=== PATIENT | male | born 1955 | race African-American/Black ===

== ENCOUNTER 2022-03-19 11:15 | Emergency (ER) | payer OTHER, SELFPAY ==
--- NOTE | ~2022-03-19 | XR_ITS ---
XR humerus RT 03/19/2022 11:44 Indication: Known dislocation Procedure: 2 views right humerus Comparison: No prior studies for comparison. Findings: There is anterior subluxation of the right humeral head with respect to the glenoid which m ay represent dislocation or pseudosubluxation. No fracture is identified. 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 Impression: 1: Inferior displacement of the humeral head to the expected location which may represent shoulder di slocation or pseudosubluxation. Correlation with dedicated right shoulder series recommended. Reviewed, dictated and finalized at location A. Impression: 1: Inferior displacement of the humeral head to the expected location which may represent shoulder dislocation or pseudosubluxation. Correlation with dedicate d right shoulder series recommended.
--- NOTE | ~2022-03-19 | XR_ITS ---
XR shoulder RT min 2V DATE: 03/19/2022 14:27 INDICATION: Postoperative reduction TECHNIQUE: AP and Neer views COMPARISON: 2 earlier sets of 03/19/2022 right shoulder radiographs FINDINGS: AP and Neer views reveal no fracture or dislocation of the right shoulder. There is inferolateral subluxation and osteophytic change at the right glenohumeral joint. Degenerative change at the right acromion clavicular joint. Prominent degenerative disc disease at C5-6 and C6-7. IMPRESSION: Inferolateral subluxation and osteoarthritic change at right glenohumeral joint Degenerative change at the acromioclavicular joint Reviewed, dictated and finalized at location B. IMPRESSION: Inferolateral subluxation and osteoarthritic change at right glenoh umeral joint Degenerative change at the acromioclavicular joint
--- NOTE | ~2022-03-19 | CT_ITS ---
EXAMINATION: CT shoulder RT wo con DATE: 03/19/2022 14:54 INDICATION: Right humeral head dislocation TECHNIQUE: Computed tomography (CT) of the right shoulder was performed without intravenous contrast. The dose-length product (DLP) was 628.18 mGy-cm. Automated exposure control and iterative reconstruc tion technique were employed. COMPARISON: None FINDINGS: Bone alignment appears normal. There is no dislocation or subluxation. A tiny osseous fragm ent projects along the inferior margin of the glenoid which could reflect a small fracture. There is mild osteoarthritis of the acromioclavicular and glenohumeral joints. The remaining osseous structure s are unremarkable. IMPRESSION: 1. Probable small fracture along the inferior margin of the glenoid. Reviewed, dictated and finalized at location F.
--- NOTE | ~2022-03-19 | XR_ITS ---
XR shoulder RT min 2V DATE: 03/19/2022 13:35 INDICATION: Postoperative reduction examination TECHNIQUE: 2 frontal views are provided. This is a limited radiographic evaluation. . COMPARISON: 03/19/2022 right humerus FINDINGS: This is a limited examination. There is degenerative change including joint space narrowing and spurring at the right acromioclavicular joint. There is widening at the right glenohumeral joint suggesting inferolateral subluxation at the glenohu meral joint. No fracture is noted. There is osteoarthritis at the glenohumeral joint. IMPRESSION: Anterolateral subluxation and osteoarthritis of the right glenohumeral joint Degenerative change at the acromioclavicular joint Reviewed, dictated and finalized at location B. IMPRESSION: Anterolateral subluxation and osteoarthritis of the right glenohume ral joint Degenerative change at the acromioclavicular joint
[2022-03-19 11:13] VITALS: BP 136/105; PULSE 99; RESP 23; TEMP 37.1; O2SAT 95
[2022-03-19] MEDS: LIDO 1%/EPINEPHRINE 1:100,000 20 ML VIAL (13:16)
[2022-03-19 13:27] VITALS: BP 136/89; PULSE 63; RESP 18; O2SAT 97
[2022-03-19 14:31] VITALS: BP 138/103; PULSE 94; RESP 21
--- NOTE | 2022-03-19 15:53 | ED.UPPEXIN ---
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 Patient was referred to the ER for further evaluation of right shoulder pain and concern for dislocation. Family reports he was in a nursing facility during transition his arm was pulled and he had pain on that right side. Chest x-ray was obtained for other reasons and there was concern for dislocation and plain films of the right shoulder were obtained and showed no dislocation but patient did not pain he was referred to the ER. Patient denies any new or focal change in numbness or weakness. His pain is primarily in his right shoulder no radiation worse with attempting to move his shoulder Related Data Home Medications Medication Instructions Recorded Confirmed tamsulosin 0.4 mg capsule 0.4 mg PO DAILY 05/02/20 12/04/21 acetaminophen 650 mg tablet 650 mg PO Q4H PRN Pain 03/19/22 Allergies Allergy/AdvReac Type Severity Reaction Status Date / Time clonidine Allergy Intermediate hives Verified 03/19/22 11:28 Review of Systems Review of Systems: CONSTITUTIONAL: Denies fever, chills, or sweats. EYES: Denies visual changes, redness, or discharge. ENT: Denies rhinorrhea, congestion, sore throat, or otalgia. CARDIOVASCULAR: Denies chest pain, palpitations, or edema. RESPIRATORY: Denies cough or dyspnea. GASTROINTESTINAL: Denies abdominal pain, nausea, vomiting, or diarrhea. GENITOURINARY: Denies dysuria or hematuria. SKIN: Denies rash or itching. MUSCULOSKELETAL: Denies back pain, joint pain, or myalgia. NEUROLOGIC: Denies headache, numbness, dizziness, or weakness. PSYCHIATRIC: Denies anxiety or depression. 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 BMI 37.0-37.9, adult Encounter for wellness examination in adult Essential (primary) hypertension Hypogonadism male Insomnia Iron deficiency anemia, unspecified Male erectile dysfunction, unspecified Mixed hyperlipidemia Prostate cancer Radiation effect Shift work sleep disorder Vitamin D deficiency, unspecified Family History Family History Mother Dementia Father Cerebrovascular accident Social History Social History Smoking status: Never smoker Alcohol intake: current Alcohol use details: Socially - twice weekly Substance use: never Exam Narrative: GENERAL: Well-appearing, well-nourished, and in no acute distress. HEAD: Normocephalic, atraumatic. EYES: PERRLA and EOMI. ENT: Nares clear, no rhinorrhea or epistaxis. Mucous membranes moist. NECK: Supple. No masses. No JVD EXTREMITIES: Normal range of motion. Diffuse tenderness on the right shoulder with displacement of the humeral head when compared to his left side. Distal Sally is at his baseline neurovascular status SKIN: Warm, dry, no rash. NEURO: No focal deficits. Alert and oriented x3. PSYCH: Normal mood and affect. Course Reevaluation(s) Reevaluation #1: Patient reports feeling improved results plan reviewed with patient. Patient is comfortable outpatient plan. Date: 03/19/22 Time: 15:54 Consultations Consultation #1: Case discussed with Dr. Fall will assist with outpatient evaluation given CT imaging findings. Date: 03/19/22 Time: 15:54 Vital Signs Vital signs: Vital Signs Temperature 37.1 C 03/19/22 11:13 Pulse Rate 99 03/19/22 11:13
[2022-03-19 16:07] VITALS: BP 156/111; PULSE 93; PULSE 95; RESP 17; O2SAT 94; O2SAT 95
== END 2022-03-19 17:34 ==
PROVIDERS: Emergency Provider Emergency Medicine; PCP Family Medicine
DX: S43.034A Inferior dislocation of right humerus, initial encounter (principal); G83.5 Locked-in state; I69.951 Hemiplegia and hemiparesis following unspecified cerebrovascular disease affecting right dominant side; I10 Essential (primary) hypertension; D50.9 Iron deficiency anemia, unspecified; E78.2 Mixed hyperlipidemia; Z85.46 Personal history of malignant neoplasm of prostate; E55.9 Vitamin D deficiency, unspecified; M19.011 Primary osteoarthritis, right shoulder; X50.9XXA Other and unspecified overexertion or strenuous movements or postures, initial encounter
CPT/HCPCS: 23650; 73030; 73060; 73200; 99284; 99285

== ENCOUNTER 2022-08-24 11:07 | Outpatient (CLI) | payer OTHER, MEDICARE, MEDICAID, SELFPAY ==
--- NOTE | ~2022-08-24 | XR_ITS ---
MODIFIED ESOPHAGRAM HISTORY: Dysphagia. TECHNIQUE: Modified barium esophagram was performed by speech pathologist under radiologist fluorosco pic guidance. This was recorded on tape. The exam was reviewed on 08/24/2022 12:16 FURNITURE FINISHER HELPER. The DAP for this procedure was 0.58 Gycm2. Fluoroscopy time is 0.6 minutes. FINDINGS: Lateral projection of the cervical spine demonstrates moderate spondylosis with ventral o steophytes at C4-5, C5-6 and C6-7.. During oral stage of swallowing there is reduced lingual movement . During pharyngeal stage there is reduced laryngeal elevation, reduced laryngeal adduction, reduced tongue base retraction and reduced pharyngeal squeeze. There is aspiration.. IMPRESSION: 1: Abnormal pharyngeal stage of swallowing with aspiration. 2: Please refer to speech pathologist report for additional detail. Reviewed, dictated and finalized at location A. ITURE FINISHER HELPER
--- NOTE | 2022-08-24 12:52 | REHSTMBS ---
Assessment and note entered by Mayra Dye, JIG MILL OPERATOR Modified Barium Swallow Evaluation Feeding Type Recommended Non-Oral Treatment Recommendations Effortful Swallow,Laryngeal Elevation Exerc,Shaker Exercise,Thermal-Tactile Stim,Tongue Base Exercise,Vocal Fold Adduction Exer ST Clinical Summary This 66 year old male patient was seen today for an outpatient MBS. His spouse brought him in and is able to provide his history since he is nonverbal. Spouse reported he had a stroke at the end of November and has been NPO since then. He is currently receiving services to help with is swallow function were he resides at [facility] . Spouse reported he has been very determined to improve swallow function, they have been trialing ice chips and completing exercises for swallowing. For the evaluation today, Héctor was presented with 5cc of thin liquid barium. This filled valleculae and spilled over to pyriform sinuses. Pt presented with 4-7 seconds delay before triggering a swallow. On the second trial a small amount went past the level of the vocal folds and about 1 second later, he coughed to attempt to clear. This was not successful. Physician and JIG MILL OPERATOR agreed to discontinue the swallow evaluation at this point due to patient safety. NPO continues to be appropriate.
== END 2022-08-24 11:08 | disposition home or self-care (01) ==
PROVIDERS: PCP Family Medicine; Visit Provider Internal Medicine
DX: I69.991 Dysphagia following unspecified cerebrovascular disease (principal)
CPT/HCPCS: 92611

== ENCOUNTER 2022-12-14 15:11 | Inpatient (IN) | payer MEDICARE, MEDICAID, SELFPAY ==
[2022-12-14] VITALS (9 sets, daily range): BP systolic 75–92; BP diastolic 54–68; PULSE 71–95; RESP 13–22; TEMP 36.5–36.8; O2SAT 95–100; BMI 29.3
--- NOTE | ~2022-12-14 | CT_ITS ---
EXAMINATION: CT brain wo con DATE: 12/14/2022 15:57 INDICATION: Syncope TECHNIQUE: Computed tomography (CT) of the head was performed without intravenous contrast. The mA wa s adjusted according to patient size. Iterative reconstruction technique was employed. Exam dose: 68 1.00 mGy-cm total exam DLP. COMPARISON: None FINDINGS: Old wedge-shaped posterior right cerebellar hemispheric infarct. There is nonspecific diminished attenuation of the cerebral white matter, likely due to chronic small vessel ischemic changes. No intracranial mass lesion or hemorrhage or recent cerebrovascular accident is evident. No midline s hift or mass effect effect. No subdural or epidural hematoma is detected. No fracture or bone destruction of the cranial vault. Included paranasal sinuses and mastoid air cell s are unremarkable. IMPRESSION: Old right cerebellar hemispheric infarct Cerebral atherosclerosis and chronic small vessel ischemic changes of the cerebral white matter No acute intracranial finding Reviewed, dictated and finalized at Location A. Reviewed, dictated and finalized at location B. IMPRESSION: Old right cerebellar hemispheric infarct Cerebral atherosclerosis and chronic small vessel ischemic changes of the cereb ral white matter No acute intracranial finding
--- NOTE | ~2022-12-14 | XR_ITS ---
EXAMINATION: XR chest 1V portable DATE: 12/14/2022 15:47 INDICATION: Unresponsive. TECHNIQUE: A single frontal view of the chest was obtained. COMPARISON: CT abdomen and pelvis 08/25/2018, right shoulder CT 03/19/2022 FINDINGS: There are airspace opacities in left lower lung zone. No pleural effusion or pneumothorax. The heart size is normal. Shrapnel overlies the neck, which is chronic. IMPRESSION: 1. Airspace opacities in left lower lung zone, consistent with atelectasis versus pneumonia. Reviewed, dictated and finalized at location A. IMPRESSION: 1. Airspace opacities in left lower lung zone, consistent with atelectasis vers us pneumonia.
--- NOTE | ~2022-12-14 | US_ITS ---
EXAMINATION: US carotid duplex BI DATE: 12/15/2022 16:25 INDICATION: Syncope TECHNIQUE: Grayscale, color Doppler, and pulsed Doppler images of the cervical carotid arteries were obtained. The degree of vessel stenosis is placed in one of the following categories: normal, <50%, 5 0-69%, >=70% but less than near-occlusion, near-occlusion, or total occlusion. Note that percent sten osis relative to normal distal artery lumen diameter is indirectly measured from velocity measurement s as described by Dong, et al. Radiology 2003; 229:340-346. Notes: Normal: Peak systolic velocity <125 centimeters/sec and no plaque <50%. Peak systolic velocity <125 ( EDV <40; ICA/CCA PSV ratio <2.0; used these factors only a tandem lesions or low cardiac output or co ntralateral disease) 50-69 %: PSV 125-230 (EDV 40-100; ratio 2-4) >= 70% but less than near occlusion: PSV greater than 230 (EDV > 100; ratio> 4.0) Near Occlusion: PSV that is variable; markedly narrowed lumen Occlusion: Absent flow on color/spectral Doppler and no lumen on ramirez scale. COMPARISON: None. FINDINGS: RIGHT: The right common carotid artery (CCA) peak systolic velocity (PSV) is 54 cm/s. The right internal car otid artery (ICA) PSV is 38 cm/s. The right ICA end-diastolic velocity (EDV) is 18 cm/s. The right IC A/CCA PSV ratio is 0.7. The external carotid artery (ECA) PSV is 59 cm/s. There is antegrade flow in the right vertebral artery. LEFT: The left CCA PSV is 66 cm/s. The left ICA PSV is 52 cm/s. The left ICA EDV is 27 cm/s. The left ICA/C CA PSV ratio is 0.8. The ECA PSV is 56 cm/s. There is antegrade flow in the left vertebral artery. IMPRESSION: 1. Less than 50% stenosis in the right internal carotid artery by sonographic criteria. 2. Less than 50% stenosis in the left internal carotid artery by sonographic criteria. Reviewed, dictated and finalized at location A. IMPRESSION: 1. Less than 50% stenosis in the right internal carotid artery by sonographic shai torres. 2. Less than 50% stenosis in the left internal carotid artery by sonographic aidee bae.
--- NOTE | ~2022-12-14 | US_ITS ---
EXAMINATION: US renal BI DATE: 12/15/2022 16:27 INDICATION: Acute kidney injury TECHNIQUE: Multiple grayscale and Doppler ultrasound images of the kidneys were obtained. COMPARISON: None. FINDINGS: The right kidney measures 11.1 x 4.9 x 4.9 cm. The left kidney measures 11.5 x 5.4 x 4.9 cm . The kidneys demonstrate normal parenchymal echogenicity. There is no hydronephrosis. The bladder is normal. IMPRESSION: 1. Normal kidneys without hydronephrosis. Reviewed, dictated and finalized at location F.
--- NOTE | 2022-12-14 15:17 | ECG_ITS ---
Rate 82 HI 186 QRSd 94 QT 341 QTc 400 --[place]-- P 16 QRS -3 T 26 SINUS RHYTHM DELAYED PRECORDIAL R/S TRANSITION LOW QRS VOLTAGE IN PRECORDIAL LEADS BORDERLINE ECG NO PREVIOUS ECG AVAILABLE FOR COMPARISON Electronically Signed On 12-14-2022 16:32:28 CDT by Sabino PEDRAZA
--- NOTE | 2022-12-14 15:33 | ED.GENADULT ---
HPI - General Adult General Chief complaint: Recheck/Abnormal Lab/Rx Stated complaint: unknown Time Seen by Provider: 12/14/22 15:32 Source: family and EMS Mode of arrival: EMS Limitations: clinical condition History of Present Illness HPI narrative: Patient is 67 years old -[place] male came from detention with sudden onset of staring, unresponsive while sitting on a chair with slight shaking all over lasted for about 5 minutes. Took him another 5 minutes to come around. History of 5 strokes, last year, admitted to detention February 2022, and feeding tube, paralyzed from neck down. Expressive aphasia, able to understand verbal commands. 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 BMI 37.0-37.9, adult Encounter for wellness examination in adult Essential (primary) hypertension Hypogonadism male Insomnia Iron deficiency anemia, unspecified Male erectile dysfunction, unspecified Mixed hyperlipidemia Prostate cancer Radiation effect Shift work sleep disorder Vitamin D deficiency, unspecified Family History Family History Mother Dementia Father Cerebrovascular accident Social History Social History Smoking status: Never smoker Alcohol intake: current Alcohol use details: Socially - twice weekly Substance use: never Exam Narrative: General appearance: Well-developed, well-nourished Skin: Normal color Head: Normocephalic, nontraumatic Eyes: Clear conjunctiva ENT: Oropharynx normal, ears normal, nose normal, no teeth Neck: Supple, nontender Chest and respiratory: Airway patent, no respiratory distress, no accessory muscle use Heart: Regular rate/rhythm Abdomen: Soft, nontender, no organomegaly, quiet bowel sounds, feeding tube in place Vascular: Normal peripheral pulses, normal capillary refill. Musculoskeletal: Hemiplegia bilaterally Neurologic: Expressive aphasia, hemiplegia bilaterally Course Vital Signs Vital signs: Vital Signs Temperature 36.8 C 12/14/22 15:13 Pulse Rate 83 12/14/22 15:13 Respiratory Rate 16 12/14/22 15:13 Blood Pressure 75/62 L 12/14/22 15:13 Pulse Oximetry 97 12/14/22 15:13 Oxygen Delivery Room Air 12/14/22 15:13 Temperature 36.8 C 12/14/22 15:13 Pulse Rate 83 12/14/22 15:13 Respiratory Rate 16 12/14/22 15:13 Blood Pressure 75/62 L 12/14/22 15:13 Pulse Oximetry 97 12/14/22 15:13 Oxygen Delivery Room Air 12/14/22 15:13 Medical Decision Making MDM Narrative Medical decision making narrative: Differential diagnosis sudden onset of blank and the staring with shaking could be secondary to seizure-like activities, hypotension,. Work-up today showed creatinine of 1.4 compared to 1.1 2018 Patient blood pressure improved after 2 L of normal saline IV. Patient will be admitted for observation discussed with the hospitalist. The seizu
[2022-12-14 15:36] LABS: Basophils Absolute Auto 0.1 K/mm3 (0.0-0.1); Basophils Percent Auto 1.2 % (0.2-1.2); Eosinophils Absolute Auto 0.2 K/mm3 (0-0.3); Hematocrit 35.6 % (42.0-52.0); Hemoglobin 11.3 g/dL (14.0-18.0); Immature Granulocyte Absolute 0.08 K/mm3 (0.00-0.031); Immature Granulocyte Percent A 1.1 % (0-0.5); Lymphocytes Absolute Auto 1.42 K/mm3 (0.9-3.2); Lymphocytes Percent Auto 18.7 % (18.3-44.2); Mean Corpuscular HGB Conc 31.7 g/dl (32-36); Mean Corpuscular Hemoglobin 28.9 pg (26-34); Mean Platelet Volume 10.9 fl (7.4-10.4); Monocytes Absolute Auto 1.4 K/mm3 (0.1-0.6); Monocytes Percent Auto 17.8 % (2.6-8.5); Neutrophils Absolute Auto 4.4 K/mm3 (1.3-6.7); Neutrophils Percent Auto 58.2 % (45.5-73.1); Platelet Count Result 249 k/mm3 (150-375); Red Blood Count 3.91 M/mm3 (4.6-6.20); Red Cell Distribution Width 14.2 % (11.5-14.5); White Blood Count 7.6 K/mm3 (4.5-10.0)
[2022-12-14 15:53] LABS: Alanine Aminotransferase 63 U/L (6-50); Albumin Level 4.3 g/dL (3.5-5.1); Alkaline Phosphatase 76 U/L (38-126); Anion Gap 7 mmol/L (8-16); Aspartate Amino Transferase 35 U/L (17-59); Bilirubin,Total 0.6 mg/dL (0.2-1.3); Blood Urea Nitrogen 30 mg/dL (9-20); Calcium 9.2 mg/dL (8.4-10.2); Carbon Dioxide 33 mmol/L (22-30); Chloride 95 mmol/L (98-107); Estimated CRCL calculation 48 ml/min; Estimated Glomerular Filt Rate > 60; Glucose 93 mg/dL (65-110); Potassium 4.6 mmol/L (3.4-5.0); Sodium 135 mmol/L (137-145)
[2022-12-14 16:02] LABS: Lactic Acid Reflex 1.6 mmol/L (0.7-2.0)
[2022-12-14 16:10] LABS: INR 1.1; Prothrombin Time 14.1 Seconds (11.1-14.7)
[2022-12-14 16:11] LABS: Partial Thromboplastin Time 31.4 SECONDS (22.3-36.8)
[2022-12-14 16:16] LABS: CRP < 0.5 mg/dL (<1.0)
[2022-12-14 17:26] LABS: Appearance Urine Clear (Clear); Bacteria Urine None Seen /hpf; Bilirubin Urine Negative (Negative); Blood Urine Negative (Negative); Color Urine Dark Yellow (Yellow); Glucose Urine UA Negative (Negative); Ketones Urine Trace mg/dL (Negative); Leukocyte Esterase Ur Trace LEU/UL (Negative); Need Manual Microscopic Reviewed; Nitrate Urine Negative (Negative); Protein Urine Trace mg/dL (Negative); RBC Urine 0-2 /hpf (0-2); Specific Grav Ur 1.019 (1.001-1.035); Squamous Epithelial Cell Urine None seen /hpf (Few); Urobilinogen Urine 0.2 mg/dL (<2.0); WBC Urine 0-5 /hpf; pH Urine 6.5 (5.0-9.0)
[2022-12-14 17:27] LABS: Add Urine Microscopic? YES
[2022-12-14 17:35] LABS: Alveolar/Arterial O2 Gradient 4.1 mmHg; Base Excess ABG 2.6 mEq/l (+/-2.0); Device ROOM AIR; Fractional Inspired Oxygen 21 %; Modified Allen's Test Pass; Oxygen Content ABG 14.4 %vol (16.0-22.0); Oxygen Saturation ABG 97.6 % (95.0-100.0); Oxyhemoglobin 96.4 % THb (90.0-100.0); PCO2 ABG 40.6 mmHg (35.0-45.0); PO2 FiO2 Ratio Arterial Blood 4.62 %; Site Drawn LEFT RADIAL; Total Hemoglobin 10.5 g/dL (12.0-18.0)
[2022-12-14] MEDS: SODIUM CHLORIDE 0.9% IV 1,000 ML 999 ML IV CONT (18:55)
--- NOTE | 2022-12-14 20:00 | PM.IMHP ---
H&P: HPI History of Present Illness Date/Time: 12/14/22 20:00 Chief Complaint: Unresponsive episode. Narrative: This is an unfortunate 67-year-old male with history of stroke which has left him with dysphagia, expressive aphasia, and bilateral weakness who presented to the emergency department via EMS from [facility] for evaluation after an unresponsive episode. The patient seems to understand what I am saying to him and can nod and shake his head appropriately. His Christelle provides the following history, with the patient's permission. He had his stroke last year and has been at [facility] since that time. He tries to participate in therapy and today he was reportedly having some sort of therapy when he suddenly started to stare off and he was then unresponsive for a minute or so. reports that he was shaking a little bit but did not think he was having seizures. On arrival to the ED is blood pressure was 75/62 and he was started on IV fluid rehydration. Labs were significant for a sodium of 135, potassium 4.6, carbon dioxide 33, BUN 30, creatinine 1.40. He has a G-tube in which he receives bolus feeding and free water flushes. does not believe he has had any change to that regimen and he has not been started on any new medications recently. He has no history of cardiac dysrhythmia or seizures. He denies chest pain, pleuritic pain, and shortness of breath at this time however he and his indicate that he does have chronic orthopnea, likely due to difficulties with his secretions. He has not had any recent fever, cold, or flu symptoms. Review of Systems Review of Systems: Limited given expressive aphasia. Twelve systems were reviewed with the and are negative except for as per HPI. 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 Vitamin D deficiency, unspecified Surgical History Surgical History (Updated 12/16/22 @ 14:10 by Noy Delaney PA-C) History of gastrostomy tube placement Family History Family History Mother Dementia Father Cerebrovascular accident Social History Social History (Updated 12/16/22 @ 14:13 by Noy Delaney PA-C) Social History: Surrogate medical decision maker: Christelle Jones, . Code status: Full code. Smoking status: Never smoker Alcohol intake: never Substance use: never Lack of Transportation: No Lack of Food: Never True Current Housing: I Have Housing Concerned About Future Housing: No Difficulty Paying Gas/Electric Bills: No Difficulty Paying for Meds: No Currently Unemployed: No Education: High School Diploma/GED Difficulty w/ Childcare or Family Care: No Spiritual care concerns: No Meds Home Medications and Allergies Home Medications Medication Instructions Recorded Confirmed Type amlodipine 10 mg tablet 10 mg PO DAILY #90 tabs 01/10/21 12/14/22 Rx irbesartan 150 mg tablet 150 mg PO DAILY #90 tabs 12/04/21 12/15/22 Rx aspirin 81 mg chewable tablet 81 mg PO DAILY 12/14/22 12/14/22 History atorvastatin 40 mg tablet 80 mg PO DAILY 12/14/22 12/14/22 History baclofen 10 mg tablet 10 mg PO BID PRN Spasms 12/14/22 12/14/22 History benazepril 20 mg tablet 20 mg PO DAILY 12/14/22 12/14/22 History cetirizine 10 mg tablet 10 mg PO DAILY 12/14/22 12/14/22 History clopidogrel 75 mg tablet 75 mg feeding tube DAILY 12/14/22 12/14/22 History diphenhydramine HCl 25 mg capsule 25 mg PO HS PRN Insomnia 12/14/22 12/14/22 History (Benadryl) enox
[2022-12-14] MEDS: SODIUM CHLORIDE 0.9% IV 1,000 ML 150 ML IV CONT (20:52)
--- NOTE | 2022-12-14 22:44 | ADMGEN ---
This patient, Héctor Jones, was admitted to IMU Room 200-01. Patient/family oriented to hospital policies and general routines including ID bracelet, bed and alarms, visiting hours, pain management, procedures, bathroom and other care routines, personal items, smoking policy, room service/diet, and visiting hours. Information on how to activate the Rapid Response Team has been discussed. Patient/Family are encouraged to report perceived risks to care and to ask questions if they do not understand what they are told or what they should do.
[2022-12-15] VITALS (13 sets, daily range): BP systolic 95–121; BP diastolic 59–82; PULSE 58–86; RESP 16–22; TEMP 36.2–37; O2SAT 98–100; BMI 29.3
--- NOTE | 2022-12-15 00:11 | ECHO_ITS ---
Patient Info Name: Héctor Jones Age: 67 years : 1955 Gender: Male Ht: 69 in Wt: 198 lbs BSA: 2.11 m2 HR: 58 bpm BP: 105 / 61 mmHg Technical Quality: Fair Exam Date: 12/15/2022 8:43 AM Exam Location: [facility] Patient Status: Inpatient Admit Date: 12/14/2022 Staff Ordering Physician: Noy Delaney PA-C Cloud Subject Matter Expert: Margarito Devries RDCS, RT Attending Provider: Dayana Bashir DO Referring Physician: Elaina MENDEZ; Exam Type: CA echo doppler color flow Study Info Indications R55 - Syncope and collapse Complete two-dimensional, color flow and Doppler transthoracic echocardiogram is performed. Summary 1. Complete two-dimensional, color flow and Doppler transthoracic echocardiogram is performed. 2. Left ventricular chamber dimension is normal. 3. Left ventricular systolic function is normal, estimated at 60-65%. 4. The left ventricular diastolic function is abnormal. 5. E/e' 11 is mildly elevated. 6. There is mild aortic valve sclerosis. 7. There is mild aortic valve regurgitation. 8. There is trace tricuspid valve regurgitation. Left Ventricle E/e' 11 is mildly elevated. Left ventricular chamber dimension is normal. Left ventricular systolic function is normal, estimated at 60-65%. The left ventricular diastolic function is abnormal. Right Ventricle Right ventricular systolic function is normal and with normal TAPSE 2.5 cm. Right ventricular chamber dimension is normal. Left Atria Left atrial chamber dimension is normal. Right Atria Right atrial chamber dimension is normal. Aortic Valve The aortic valve is trileaflet. There is mild aortic valve sclerosis. There is no aortic valve stenosis. There is mild aortic valve regurgitation. Pulmonic Valve There is no pulmonic regurgitation. Mitral Valve There is no mitral valve stenosis. There is no mitral valve regurgitation. Tricuspid Valve RVSP is not calculated due to an inadequate TR jet. There is trace tricuspid valve regurgitation. Pericardium/Pleural There is no pericardial effusion. Inferior Vena Cava Normal inferior vena cava with >50% collapse upon inspiration consistent with normal right atrial pressure, 5 mmHg. Aorta The aortic root size at the sinus of Valsalva is normal. Left Ventricular Outflow Tract Name Value Normal LVOT 2D LVOT Diameter 2.1 cm LVOT Doppler LVOT Peak Gradient 7 mmHg LVOT Mean Gradient 4 mmHg LVOT VTI 27 cm LVOT VTI/AV VTI Ratio 0.8 LVOT Stroke Volume 97 ml LVOT CO 5.9 l/min LVOT CI 2.8 l/min/m2 Mitral Valve Name Value Normal MV Doppler MV Peak Gradient 1 mmHg
[2022-12-15] MEDS: SODIUM CHLORIDE 0.9% IV 1,000 ML 150 ML IV CONT ×2 (02:11→14:11)
[2022-12-15 04:49] LABS: Hematocrit 34.3 % (42.0-52.0); Hemoglobin 10.6 g/dL (14.0-18.0); Mean Corpuscular HGB Conc 30.9 g/dl (32-36); Mean Corpuscular Hemoglobin 29.1 pg (26-34); Mean Corpuscular Volume 94.2 fl (80-100); Mean Platelet Volume 10.6 fl (7.4-10.4); Platelet Count Result 204 k/mm3 (150-375); Red Blood Count 3.64 M/mm3 (4.6-6.20); Red Cell Distribution Width 14.2 % (11.5-14.5); White Blood Count 5.8 K/mm3 (4.5-10.0)
[2022-12-15 04:59] LABS: Anion Gap 8 mmol/L (8-16); Blood Urea Nitrogen 20 mg/dL (9-20); Calcium 8.1 mg/dL (8.4-10.2); Carbon Dioxide 24 mmol/L (22-30); Chloride 104 mmol/L (98-107); Estimated CRCL calculation 78 ml/min; Estimated Glomerular Filt Rate > 60; Glucose 89 mg/dL (65-110); Potassium 4.4 mmol/L (3.4-5.0); Sodium 136 mmol/L (137-145)
[2022-12-15] MEDS: LANSOPRAZOLE ORAL SUSP 30 MG/10 ML ORAL.SUSP FEED TUBE (05:46)
--- NOTE | 2022-12-15 07:43 | PM.IMPN ---
Progress Note: A&P Assessment and Plan (1) Syncopal episodes: Code(s): R55 - Syncope and collapse Status: Acute Assessment and Plan: Likely 2/2 hypotension from pneumonia, it sounds as though the patient had a syncopal episode while working with therapy, according to the he had an episode where he began to stare and was unresponsive for about a minute. He did have mild tremors, but no gross seizure activity. Seizure is still a possibility, but seems less likely. He was hypotensive on arrival and likely this was the cause of the unresponsive episode. Monitor telemetry, check echo, carotid US, orthostatic VS (2) Hypotension: Code(s): I95.9 - Hypotension, unspecified Status: Acute Assessment and Plan: Dehydration vs medication side effect vs sepsis from PNA, cont IVF, hold antihypertensives Norvasc 10 mg, benazepril 20 mg, lasix 40 mg, irbesartan 150 mg, aldactone 25 mg Not sure why patient is on an CRISTI and an ARB, would not restart both at discharge (3) Acute on chronic kidney failure: Code(s): N17.9 - Acute kidney failure, unspecified; N18.9 - Chronic kidney disease, unspecified Status: Acute Assessment and Plan: Suspect prerenal etiology, follow up renal US, hold nephrotoxic agents, check PVR (4) Abnormal chest x-ray: Code(s): R93.89 - Abnormal findings on diagnostic imaging of other specified body structures Status: Acute Assessment and Plan: Rocephin + azithromycin started at admission 12/14 Elevate head of bed given aspiration risk. (5) Dysphagia: Code(s): R13.10 - Dysphagia, unspecified Status: Acute Assessment and Plan: Elevate head of bed. Continue G-tube feedings and free water flushes. Plan DVT prophylaxis with lovenox GI prophylaxis not indicated Code status full code Subjective Date/time seen: 12/15/22 07:43 Interval history: 67-year-old male with history of CVA and residual deficits of dysphagia, expressive aphasia, bilateral weakness and G-tube dependence for nutrition is presenting a nursing facility with an unresponsive episode concerning for seizure versus syncope found to be hypotensive in the ER possibly secondary to pneumonia, being treated with antibiotics. No overnight events noted. No chest pain or shortness of breath. No nausea, vomiting or diarrhea. No fevers or chills. is in the room and gives the history as patient is aphasic. She has noted a productive cough over the last few days. He was also progressively more dyspneic intermittently over the last few days. She has not noted any more spells like he had rehab. She would like his tube feeds to be restarted. Review of Systems Review of Systems: 12 point review of systems was assessed and was negative except as noted in the HPI, taken from the Exam Narrative: General: No acute distress, alert and oriented per baseline per , patient is aphasic at baseline, he does shake his head yes and no to certain questions HEENT: Atraumatic, normocephalic, mucous membranes moist CV: Regular rate and rhythm, S1, S2 Lungs: Coarse breath sounds throughout, no wheezes Abdomen: Soft, nontender, nondistended Extremities: Normal to inspection Skin: No rashes noted, no lesions or wounds seen Psych: Euthymic, normal affect Objective Data Vital Signs Vital Signs: Vital Signs - 24 hr 12/14/22 15:13 12/14/22 16:40 12/14/22 17:10 Temperature 98.2 F Pulse Rate 83 79 95 Respiratory Rate 16 18 20 Blood Pressure 75/62 L 82/56 L 90/68 L Pulse Oximetry 97 100 97 Oxygen Delivery Room Air 12/14/22 18:40 12/14/22 19:42 12/14/22 20:52 Temperature Pulse Rate 78 73 Respiratory Rate 16 18 Blood Pressure 84/54 L 80/55 L 92/66 L Pulse Oximetry 95 95 Oxygen Delivery 12/14/22 22:13 12/14/22 22:26 12/14/22 22:35 Temperature 97.7 F Pulse Rate 72 71 71 Respiratory Rate 19 13 22 H Blood Pr
[2022-12-15] MEDS: GABAPENTIN 100 MG CAPSULE FEED TUBE ×3 (09:07→18:02)
[2022-12-15] MEDS: FLUoxetine HCL 20 MG CAPSULE FEED TUBE (09:07)
[2022-12-15] MEDS: ASPIRIN 81 MG CHEWABLE TABLET FEED TUBE (09:07)
[2022-12-15] MEDS: GLYCOPYRROLATE 1 MG TABLET FEED TUBE ×3 (09:07→18:03)
[2022-12-15] MEDS: LACTULOSE 20 GM/30 ML UDC 10 GM FEED TUBE (09:08)
[2022-12-15] MEDS: CLOPIDOGREL BISULFATE 75 MG TABLET FEED TUBE (09:08)
[2022-12-15] MEDS: ENOXAPARIN 40 MG/0.4 ML SYRINGE SUB-Q (09:08)
[2022-12-15] MEDS: SUCRALFATE 1 GM TABLET FEED TUBE ×2 (09:09→18:03)
[2022-12-15] MEDS: LORATADINE 10 MG TABLET FEED TUBE (09:09)
--- NOTE | 2022-12-15 18:35 | PC.NURSE ---
At 1400 I was called into pts room by tech. Pt was transfering from commode to bed and became diaphoretic, very lethargic and very weak. Upon checking vitals it was found that she had a BP of 66/50 on R.arm, 133/[address] Bashir was called and came to bedside. 500ml bolus of NS was given. Pt was responsive to this as shown through q 5min vitals. Daughter was called and updated.
[2022-12-16] VITALS (13 sets, daily range): BP systolic 104–127; BP diastolic 68–92; PULSE 70–102; RESP 16–22; TEMP 36.2–37.2; O2SAT 95–100
[2022-12-16] MEDS: SODIUM CHLORIDE 0.9% IV 1,000 ML 150 ML IV CONT ×2 (01:32→17:13)
[2022-12-16 04:40] LABS: Estimated CRCL calculation 102 ml/min; Estimated Glomerular Filt Rate > 60
[2022-12-16] MEDS: CLOPIDOGREL BISULFATE 75 MG TABLET FEED TUBE (10:17)
[2022-12-16] MEDS: ASPIRIN 81 MG CHEWABLE TABLET FEED TUBE (10:17)
[2022-12-16] MEDS: ENOXAPARIN 40 MG/0.4 ML SYRINGE SUB-Q (10:18)
[2022-12-16] MEDS: FLUoxetine HCL 20 MG CAPSULE FEED TUBE (10:18)
[2022-12-16] MEDS: GLYCOPYRROLATE 1 MG TABLET FEED TUBE ×3 (10:18→17:10)
[2022-12-16] MEDS: SUCRALFATE 1 GM TABLET FEED TUBE ×2 (10:18→17:10)
[2022-12-16] MEDS: GABAPENTIN 100 MG CAPSULE FEED TUBE ×3 (10:18→17:10)
[2022-12-16] MEDS: LORATADINE 10 MG TABLET FEED TUBE (10:24)
[2022-12-16] MEDS: LANSOPRAZOLE ORAL SUSP 30 MG/10 ML ORAL.SUSP FEED TUBE (10:25)
--- NOTE | 2022-12-16 12:51 | PM.IMPN ---
Progress Note: A&P Assessment and Plan (1) Bacteremia: Code(s): R78.81 - Bacteremia Status: Acute Assessment and Plan: BCx on admission in all 4 bottles growing Gram-positive cocci in clusters. Probably related to pneumonia as a source. Echocardiogram is not show any obvious vegetations. Repeat blood cultures in the morning. Follow up on final results. (2) Pneumonia: Code(s): J18.9 - Pneumonia, unspecified organism Status: Acute Assessment and Plan: CXR showing LLL airspace disease. Rocephin + azithromycin started at admission 12/14. Vanco added today. Elevate head of bed given aspiration risk. Remains on room air. Follow up on culture results (3) Syncopal episodes: Code(s): R55 - Syncope and collapse Status: Acute Assessment and Plan: Patient had a syncopal episode while working with therapy. According to the he was staring and was unresponsive for about a minute. He did have mild tremors, but no gross seizure activity. Likely 2/2 hypotension from pneumonia. Seizure is still a possibility, but seems less likely. He was hypotensive on arrival and likely this was the cause of the unresponsive episode. Echo showing EF 60-65% with abnormal diastolic dysfunction. Carotid US <50% stenosis bilateral carotid arteries. 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 Contineu to follow. (4) Hypotension: Code(s): I95.9 - Hypotension, unspecified Status: Acute Assessment and Plan: Dehydration vs medication side effect vs sepsis from PNA. Suspect related to PNA. Antihypertensive meds on hold. Not sure why patient is on an CRISTI and an ARB but would not restart both at discharge. Begin to resume anti-HTN meds one at a time as toelrated. (5) Acute on chronic kidney failure: Code(s): N17.9 - Acute kidney failure, unspecified; N18.9 - Chronic kidney disease, unspecified Status: Acute Assessment and Plan: Cr 1.4 on admission. Suspect prerenal etiology. Renal US showing normal kidneys. Holding nephrotoxic agents. Repeat Cr normal now. Follow (6) Dysphagia: Code(s): R13.10 - Dysphagia, unspecified Status: Acute Assessment and Plan: Elevate head of bed. Continue G-tube feedings and free water flushes. Plan DVT prophylaxis with lovenox Code status full code Subjective Date/time seen: 12/16/22 12:51 Interval history: 67yo male with history of stroke which has left him with dysphagia, expressive aphasia, and bilateral weakness who presented to the emergency department via EMS from [facility] for evaluation after an unresponsive episode.? Assuming care. Chart reviewed. Patient is aphasic. He denies chest pain, SOB or nausea Exam Narrative: AF 98.6 118/81 71 16 100% ra Gen - NARD Chest - crackles bibasilar L>R CV - RRR S1/S2 Abd - Soft, NT, PEG site clean and dry Ext - trace pedal edema Neuro - alert, aphasic. Psych - labile mood Skin - Warm and dry Objective Data Vital Signs Vital Signs: Vital Signs - 24 hr 12/15/22 16:00 12/15/22 14:00 12/15/22 16:00 Temperature 98.6 F Pulse Rate 65 61 63 Respiratory Rate 20 Blood Pressure 109/82 Pulse Oximetry 100 Oxygen Delivery 12/15/22 16:00 12/15/22 18:00 12/15/22 20:00 Temperature Pulse Rate 64 Respiratory Rate Blood Pressure 115/78 Pulse Oximetry Oxygen Delivery Room Air 12/15/22 20:00 12/15/22 20:02 12/15/22 20:00 Temperature 97.2 F L Pulse Rate 66 70 Respiratory Rate 22 H Blood Pressure 115/78 121/81 Pulse Oximetry 98 Oxygen Delivery 12/15/22 20:00 12/16/22 00:00 12/16/22 00:00 Temperature 98.0 F Pulse Rate 79 Respiratory Rate 22 H Blood Pressure 104/69 Pulse Oximetry 98 Oxygen Delivery Room Air Room Air 12/15/22 22:00 12/16/22 00:00 12/16/22 02:00 Temperature Pulse Rate 86 77 72 Respiratory Rate Blood Pressure Pulse Oximetry
[2022-12-16] MEDS: AZITHROMYCIN 250 MG TABLET 500 MG PO (20:05)
[2022-12-16] MEDS: MELATONIN 3 MG TABLET FEED TUBE (20:06)
[2022-12-17] VITALS (13 sets, daily range): BP systolic 103–126; BP diastolic 75–85; PULSE 59–90; RESP 16–18; TEMP 36.1–37.1; O2SAT 98–100
[2022-12-17] MEDS: SODIUM CHLORIDE 0.9% IV 1,000 ML 150 ML IV CONT (03:30)
[2022-12-17] MEDS: LANSOPRAZOLE ORAL SUSP 30 MG/10 ML ORAL.SUSP FEED TUBE (06:14)
[2022-12-17] MEDS: SCOPOLAMINE 1.5 MG PATCH 1 MG TRANSDERM (07:03)
[2022-12-17] MEDS: FLUoxetine HCL 20 MG CAPSULE FEED TUBE (08:46)
[2022-12-17] MEDS: GLYCOPYRROLATE 1 MG TABLET FEED TUBE ×3 (08:46→16:17)
[2022-12-17] MEDS: ASPIRIN 81 MG CHEWABLE TABLET FEED TUBE (08:46)
[2022-12-17] MEDS: CLOPIDOGREL BISULFATE 75 MG TABLET FEED TUBE (08:46)
[2022-12-17] MEDS: ENOXAPARIN 40 MG/0.4 ML SYRINGE SUB-Q (08:46)
[2022-12-17] MEDS: GABAPENTIN 100 MG CAPSULE FEED TUBE ×3 (08:47→16:17)
[2022-12-17] MEDS: SUCRALFATE 1 GM TABLET FEED TUBE ×2 (08:47→16:17)
[2022-12-17] MEDS: LORATADINE 10 MG TABLET FEED TUBE (09:05)
[2022-12-17 10:16] LABS: Basophils Absolute Auto 0.1 K/mm3 (0.0-0.1); Basophils Percent Auto 0.9 % (0.2-1.2); Eosinophils Absolute Auto 0.4 K/mm3 (0-0.3); Eosinophils Percent Auto 4.7 % (0-4.4); Hematocrit 31.5 % (42.0-52.0); Immature Granulocyte Absolute 0.03 K/mm3 (0.00-0.031); Immature Granulocyte Percent A 0.4 % (0-0.5); Lymphocytes Absolute Auto 2.15 K/mm3 (0.9-3.2); Mean Corpuscular HGB Conc 31.7 g/dl (32-36); Mean Corpuscular Hemoglobin 28.6 pg (26-34); Mean Platelet Volume 10.8 fl (7.4-10.4); Monocytes Absolute Auto 0.5 K/mm3 (0.1-0.6); Monocytes Percent Auto 6.3 % (2.6-8.5); Neutrophils Absolute Auto 4.4 K/mm3 (1.3-6.7); Neutrophils Percent Auto 58.7 % (45.5-73.1); Platelet Count Result 237 k/mm3 (150-375); Red Cell Distribution Width 13.9 % (11.5-14.5); White Blood Count 7.4 K/mm3 (4.5-10.0)
[2022-12-17 10:27] LABS: Alanine Aminotransferase 38 U/L (6-50); Albumin Level 3.5 g/dL (3.5-5.1); Alkaline Phosphatase 70 U/L (38-126); Anion Gap 4 mmol/L (8-16); Aspartate Amino Transferase 26 U/L (17-59); Bilirubin,Total 0.4 mg/dL (0.2-1.3); Blood Urea Nitrogen 10 mg/dL (9-20); Calcium 8.3 mg/dL (8.4-10.2); Carbon Dioxide 30 mmol/L (22-30); Chloride 106 mmol/L (98-107); Estimated CRCL calculation 114 ml/min; Estimated Glomerular Filt Rate > 60; Glucose 87 mg/dL (65-110); Magnesium 1.7 mg/dL (1.6-2.3); Phosphorus 3.5 mg/dL (2.5-4.5); Potassium 3.8 mmol/L (3.4-5.0); Sodium 140 mmol/L (137-145)
[2022-12-17 11:06] LABS: Vancomycin Trough 18.2 ug/mL (10.0-20.0)
[2022-12-17] MEDS: SODIUM CHLORIDE 0.9% IV 1,000 ML 70 ML IV CONT ×2 (14:09→14:33)
--- NOTE | 2022-12-17 14:40 | PM.IMPN ---
Progress Note: A&P Assessment and Plan (1) Bacteremia: Code(s): R78.81 - Bacteremia Status: Acute Assessment and Plan: BCx on admission in 3/4 bottles growing Staph capitis. Sensitivities noted. More likely from skin source but possibly related to pneumonia as a source. Echocardiogram is not show any obvious vegetations. Repeat blood cultures today. Discussed with PharmD ID. Plan to continue Rocephin/Azithro/Vanco for now (increase Rocephin to 2gm) through 12/19/22 to cover for PNA (in case Staph capitis is not the etiology of the PNA). Then change to oxacillin to complete a 14 day total course for the bacteremia from negative culture. Place Midline if repeat BCx negative. (2) Pneumonia: Code(s): J18.9 - Pneumonia, unspecified organism Status: Acute Assessment and Plan: CXR showing LLL airspace disease. Rocephin + azithromycin started at admission 12/14. Vanco added 12/16. Elevate head of bed given aspiration risk. Remains on room air. As above (3) Syncopal episodes: Code(s): R55 - Syncope and collapse Status: Acute Assessment and Plan: Patient had a syncopal episode while working with therapy. According to the he was staring and was unresponsive for about a minute. He did have mild tremors, but no gross seizure activity. Likely 2/2 hypotension from pneumonia. Seizure is still a possibility, but seems less likely. He was hypotensive on arrival and likely this was the cause of the unresponsive episode. Echo showing EF 60-65% with abnormal diastolic dysfunction. Carotid US <50% stenosis bilateral carotid arteries. 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 BP better. Will stop IV fluids. Continue to follow. (4) Hypotension: Code(s): I95.9 - Hypotension, unspecified Status: Acute Assessment and Plan: Dehydration vs medication side effect vs sepsis from PNA. Suspect related to PNA. Antihypertensive meds on hold. Not sure why patient is on an CRISTI and an ARB but would not restart both at discharge. Will stop IV fluids. Begin to resume anti-HTN meds one at a time as BP requires. (5) Acute on chronic kidney failure: Code(s): N17.9 - Acute kidney failure, unspecified; N18.9 - Chronic kidney disease, unspecified Status: Acute Assessment and Plan: Cr 1.4 on admission. Suspect prerenal etiology. Renal US showing normal kidneys. Holding nephrotoxic agents. Repeat Cr normal now. Follow. Stop IV fluids (6) Dysphagia: Code(s): R13.10 - Dysphagia, unspecified Status: Acute Assessment and Plan: Elevate head of bed. Continue G-tube feedings and free water flushes. Plan DVT prophylaxis with lovenox Code status full code Subjective Date/time seen: 12/17/22 14:40 Interval history: 67yo male with history of stroke which has left him with dysphagia, expressive aphasia, and bilateral weakness who presented to the emergency department via EMS from [facility] for evaluation after an unresponsive episode.? Alert. Unable to provide hx. at bedside feels he is back to baseline. Exam Narrative: AF 98.8 112/76 65 16 100% ra Gen - NARD Chest - clear anteriorly and in the flanks to quiet respirations. nml RR CV - RRR S1/S2. Tele showing no significant dysrhythmias Abd - Soft, NT, PEG site clean and dry Ext - mild diffuse edema Neuro - alert, aphasic. Psych - nml mood Skin - Warm and dry Objective Data Vital Signs Vital Signs: Vital Signs - 24 hr 12/16/22 16:00 12/16/22 16:00 12/16/22 16:00 Temperature 98.6 F Pulse Rate 82 83 Respiratory Rate 16 Blood Pressure 127/92 H Pulse Oximetry 100 Oxygen Delivery Room Air 12/16/22 18:00 12/16/22 19:54 12/16/22 20:00 Temperature 98.4 F Pulse Rate 82 96 Respiratory Rate 20 Blood Pressure 119/87 Pulse Oximetry 97 Oxygen Delivery Room Air 12/16/22 20:00 12/17/22 00:00 12/16/22 22:00 Temperature P
[2022-12-17] MEDS: cefTRIAXone 2 GM/NS 100 ML 2 GM/100 ML BAG IVPB (15:59)
[2022-12-17] MEDS: AZITHROMYCIN 250 MG TABLET 500 MG PO (20:25)
[2022-12-17] MEDS: ACETAMINOPHEN ELIXIR 325 MG/10.15 ML UDC 650 MG FEED TUBE (21:19)
[2022-12-17] MEDS: MELATONIN 3 MG TABLET FEED TUBE (21:20)
[2022-12-18] VITALS (10 sets, daily range): BP systolic 106–130; BP diastolic 78–90; PULSE 62–95; RESP 16–20; TEMP 36.2–36.8; O2SAT 97–100
[2022-12-18 05:05] LABS: Estimated CRCL calculation 114 ml/min; Estimated Glomerular Filt Rate > 60
[2022-12-18] MEDS: LANSOPRAZOLE ORAL SUSP 30 MG/10 ML ORAL.SUSP FEED TUBE (05:11)
[2022-12-18] MEDS: CLOPIDOGREL BISULFATE 75 MG TABLET FEED TUBE (08:22)
[2022-12-18] MEDS: FLUoxetine HCL 20 MG CAPSULE FEED TUBE (08:22)
[2022-12-18] MEDS: ASPIRIN 81 MG CHEWABLE TABLET FEED TUBE (08:22)
[2022-12-18] MEDS: ENOXAPARIN 40 MG/0.4 ML SYRINGE SUB-Q (08:22)
[2022-12-18] MEDS: GABAPENTIN 100 MG CAPSULE FEED TUBE ×3 (08:23→16:37)
[2022-12-18] MEDS: GLYCOPYRROLATE 1 MG TABLET FEED TUBE ×3 (08:23→16:37)
[2022-12-18] MEDS: LACTULOSE 20 GM/30 ML UDC 10 GM FEED TUBE (08:24)
[2022-12-18] MEDS: SUCRALFATE 1 GM TABLET FEED TUBE ×2 (08:24→16:37)
[2022-12-18] MEDS: LORATADINE 10 MG TABLET FEED TUBE (08:25)
[2022-12-18] MEDS: PHENOL/SOD PHENO SPRAY CHERRY (*BKC) 1 SPRAY MUCOUS MEM ×2 (09:52→12:40)
--- NOTE | 2022-12-18 12:25 | PCNFU ---
Nutrition Follow-Up Complete: Swallowing difficulties related to dysphagia as evidenced by need for alternative nutrition support to meet nutritional needs Meet estimated needs Goal: Patient to tolerate current TF prescription on follow-up. Patient receiving Jevity 1.5 at 85mL/hr x 16 hrs (4 pm-8 am). Jevity 1.5 at 16 hours is providing 2040 kcal (meeting 102% of estimated energy needs), 87g protein (meeting 120% of estimated protein needs) and 1034 mL of free water. Nutrition recommendation: Continue with current TF prescription of Jevity 1.5 at 85mL/hr x 16 hours. Will monitor for GI intolerance. Recommend free water flush of 120mL every 3 hours. Recommend to elevate HOB during TF infusion. Last recorded weight is 92.5 kg. Bowel Motility: BM x 3 on 12/16/22. Bowel sounds present. Abd: distended, firm, tender. Labs Reviewed: Hgb: 10, Hct: 31.5 Vitals: MAP: 93 Meds Noted: Lactulose, Carafate, Lansoprazole Skin: No open areas documented per EHR Additional Notes: Weight up 6 lbs (3%) x 4 days. Patient not receiving a diuretic as he had been at home. Monitor tube feedings, tolerance, wt, labs. Follow up every Wednesday and Wednesday.
--- NOTE | 2022-12-18 13:56 | PM.IMPN ---
Progress Note: A&P Assessment and Plan (1) Bacteremia: Code(s): R78.81 - Bacteremia Status: Acute Assessment and Plan: BCx on admission in 3/4 bottles growing Staph capitis. Sensitivities noted. More likely from skin source but possibly related to pneumonia as a source. Echocardiogram is not show any obvious vegetations. Repeat blood cultures NGTD. Continue Rocephin/Azithro/Vanco through 12/19/22 to cover for PNA (in case Staph capitis is not the etiology of the PNA). Then change to oxacillin to complete a 14 day total course for the bacteremia from negative culture. Place Midline if repeat BCx negative. Consider SUNNI if repeat BCx positive. (2) Pneumonia: Code(s): J18.9 - Pneumonia, unspecified organism Status: Acute Assessment and Plan: CXR showing LLL airspace disease. Rocephin + azithromycin started at admission 12/14. Vanco added 12/16. Elevate head of bed given aspiration risk. Remains on room air. As above (3) Syncopal episodes: Code(s): R55 - Syncope and collapse Status: Acute Assessment and Plan: Patient had a syncopal episode while working with therapy. According to the he was staring and was unresponsive for about a minute. He did have mild tremors, but no gross seizure activity. Likely 2/2 hypotension from pneumonia. Seizure is still a possibility, but seems less likely. He was hypotensive on arrival and likely this was the cause of the unresponsive episode. Echo showing EF 60-65% with abnormal diastolic dysfunction. Carotid US <50% stenosis bilateral carotid arteries. 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 BP better so IV fluids stopped. BP normal but not elevated to require resuming anti-HTN meds. Continue to follow. (4) Hypotension: Code(s): I95.9 - Hypotension, unspecified Status: Acute Assessment and Plan: Dehydration vs medication side effect vs sepsis from PNA. Suspect related to PNA. Antihypertensive meds on hold. Not sure why patient is on an CRISTI and an ARB but would not restart both at discharge. BP stable. Begin to resume anti-HTN meds one at a time as BP requires. (5) Acute on chronic kidney failure: Code(s): N17.9 - Acute kidney failure, unspecified; N18.9 - Chronic kidney disease, unspecified Status: Acute Assessment and Plan: Cr 1.4 on admission. Suspect prerenal etiology. Renal US showing normal kidneys. Holding nephrotoxic agents. Repeat Cr normal now. Follow. (6) Dysphagia: Code(s): R13.10 - Dysphagia, unspecified Status: Acute Assessment and Plan: Elevate head of bed. Continue G-tube feedings and free water flushes. Plan DVT prophylaxis with lovenox Code status full code Subjective Date/time seen: 12/18/22 13:56 Interval history: 67yo male with history of stroke which has left him with dysphagia, expressive aphasia, and bilateral weakness who presented to the emergency department via EMS from [facility] for evaluation after an unresponsive episode.? No CP. No abd pain. No SOB. Patietn is alert but essentially nonverbal and does shake his head for Yes/No Exam Narrative: AF 997.5 123/79 65 16 100% ra Gen - NARD lying semi-recumbent in bed Chest - lungs clear anteriorly and in the flanks, nml RR CV - RRR S1/S2. Tele showing no significant dysrhythmias Abd - Soft, NT, PEG site clean and dry Ext - trace diffuse edema Neuro - alert, aphasic. Psych - nml mood Skin - Warm and dry Objective Data Vital Signs Vital Signs: Vital Signs - 24 hr 12/17/22 14:00 12/17/22 16:00 12/17/22 16:00 Temperature Pulse Rate 65 62 Respiratory Rate Blood Pressure Pulse Oximetry Oxygen Delivery Room Air 12/17/22 16:00 12/17/22 18:00 12/17/22 20:00 Temperature 98.8 F 98.6 F Pulse Rate 68 79 87 Respiratory Rate 16 16 Blood Pressure 112/76 103/75 Pulse Oximetry 100 98 Oxygen Delivery 12/17/22 20:00
[2022-12-18] MEDS: cefTRIAXone 2 GM/NS 100 ML 2 GM/100 ML BAG IVPB (16:37)
[2022-12-18] MEDS: AZITHROMYCIN 250 MG TABLET 500 MG PO (20:29)
[2022-12-19] VITALS: BP 114/94; PULSE 70; RESP 20; TEMP 36.4; O2SAT 100
[2022-12-19] MEDS: LANSOPRAZOLE ORAL SUSP 30 MG/10 ML ORAL.SUSP FEED TUBE (06:36)
[2022-12-19 07:08] LABS: Hematocrit 30.3 % (42.0-52.0); Hemoglobin 10.1 g/dL (14.0-18.0); Mean Corpuscular HGB Conc 33.3 g/dl (32-36); Mean Corpuscular Hemoglobin 28.7 pg (26-34); Mean Corpuscular Volume 86.1 fl (80-100); Mean Platelet Volume 10.7 fl (7.4-10.4); Platelet Count Result 254 k/mm3 (150-375); Red Blood Count 3.52 M/mm3 (4.6-6.20); Red Cell Distribution Width 13.9 % (11.5-14.5); White Blood Count 8.6 K/mm3 (4.5-10.0)
[2022-12-19 07:21] LABS: Anion Gap 6 mmol/L (8-16); Blood Urea Nitrogen 10 mg/dL (9-20); Calcium 8.5 mg/dL (8.4-10.2); Carbon Dioxide 27 mmol/L (22-30); Chloride 107 mmol/L (98-107); Estimated CRCL calculation 114 ml/min; Estimated Glomerular Filt Rate > 60; Glucose 122 mg/dL (65-110); Potassium 4.7 mmol/L (3.4-5.0); Sodium 140 mmol/L (137-145)
[2022-12-19] MEDS: CLOPIDOGREL BISULFATE 75 MG TABLET FEED TUBE (10:25)
[2022-12-19] MEDS: FLUoxetine HCL 20 MG CAPSULE FEED TUBE (10:25)
[2022-12-19] MEDS: ENOXAPARIN 40 MG/0.4 ML SYRINGE SUB-Q (10:25)
[2022-12-19] MEDS: LACTULOSE 20 GM/30 ML UDC 10 GM FEED TUBE (10:26)
[2022-12-19] MEDS: GABAPENTIN 100 MG CAPSULE FEED TUBE ×3 (10:26→17:45)
[2022-12-19] MEDS: GLYCOPYRROLATE 1 MG TABLET FEED TUBE ×3 (10:26→17:45)
[2022-12-19] MEDS: ASPIRIN 81 MG CHEWABLE TABLET FEED TUBE (10:26)
[2022-12-19] MEDS: LORATADINE 10 MG TABLET FEED TUBE (10:27)
[2022-12-19] MEDS: SUCRALFATE 1 GM TABLET FEED TUBE ×2 (10:27→17:45)
[2022-12-19] MEDS: ATORVASTATIN 40 MG TABLET 80 MG PO (10:27)
[2022-12-19] MEDS: ACETAMINOPHEN ELIXIR 325 MG/10.15 ML UDC 650 MG FEED TUBE (10:30)
--- NOTE | 2022-12-19 10:46 | PC.NURSE ---
This patient, Héctor Jones, was transferred to [facility] on 12/18/22. Personal belongings sent with patient. Report given to LANIE George. Appropriate documentation sent with patient.
[2022-12-19] MEDS: PHENOL/SOD PHENO SPRAY CHERRY (*BKC) 1 SPRAY MUCOUS MEM (12:26)
[2022-12-19 14:39] VITALS: BP 96/83; PULSE 63; RESP 18; TEMP 36.2; O2SAT 100
[2022-12-19] MEDS: SODIUM CHLORIDE 0.9% IV 500 ML IV CONT (15:56)
[2022-12-19 17:17] VITALS: BP 119/81; PULSE 82; RESP 16
--- NOTE | 2022-12-19 19:24 | PM.IMPN ---
Progress Note: A&P Assessment and Plan (1) Bacteremia: Code(s): R78.81 - Bacteremia Status: Acute Assessment and Plan: BCx on admission in 3/4 bottles growing Staph capitis. Sensitivities noted. More likely from skin source but possibly related to pneumonia as a source. Echocardiogram is not show any obvious vegetations. Repeat blood cultures NGTD. Continue Rocephin/Azithro/Vanco through 12/19/22 to cover for PNA (in case Staph capitis is not the etiology of the PNA). Then change to oxacillin to complete a 14 day total course for the bacteremia from negative culture. Place Midline if repeat BCx negative. Consider SUNNI if repeat BCx positive. (2) Pneumonia: Code(s): J18.9 - Pneumonia, unspecified organism Status: Acute Assessment and Plan: CXR showing LLL airspace disease. Rocephin + azithromycin started at admission 12/14. Vanco added 12/16. Elevate head of bed given aspiration risk. Remains on room air. As above (3) Syncopal episodes: Code(s): R55 - Syncope and collapse Status: Acute Assessment and Plan: Patient had a syncopal episode while working with therapy. According to the he was staring and was unresponsive for about a minute. He did have mild tremors, but no gross seizure activity. Likely 2/2 hypotension from pneumonia. Seizure is still a possibility, but seems less likely. He was hypotensive on arrival and likely this was the cause of the unresponsive episode. Echo showing EF 60-65% with abnormal diastolic dysfunction. Carotid US <50% stenosis bilateral carotid arteries. 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 BP better so IV fluids stopped. BP normal but not elevated to require resuming anti-HTN meds. Continue to follow. (4) Hypotension: Code(s): I95.9 - Hypotension, unspecified Status: Acute Assessment and Plan: Dehydration vs medication side effect vs sepsis from PNA. Suspect related to PNA. Antihypertensive meds on hold. Not sure why patient is on an CRISTI and an ARB but would not restart both at discharge. BP stable. Begin to resume anti-HTN meds one at a time as BP requires. (5) Acute on chronic kidney failure: Code(s): N17.9 - Acute kidney failure, unspecified; N18.9 - Chronic kidney disease, unspecified Status: Acute Assessment and Plan: Cr 1.4 on admission. Suspect prerenal etiology. Renal US showing normal kidneys. Holding nephrotoxic agents. Repeat Cr normal now. Follow. (6) Dysphagia: Code(s): R13.10 - Dysphagia, unspecified Status: Acute Assessment and Plan: E levate head of bed. Continue G-tube feedings and free water flushes. Plan DVT prophylaxis with lovenox Code status full code Subjective Date/time seen: 12/19/22 19:24 Interval history: 67yo male with history of stroke which has left him with dysphagia, expressive aphasia, and bilateral weakness who presented to the emergency department via EMS from [facility] for evaluation after an unresponsive episode.? No overnight events noted. No chest pain or shortness of breath. No nausea, vomiting or diarrhea. No fevers or chills. Patient shakes his head yes or no, is nonverbal at baseline. Discussed case with was at bedside. Review of Systems Review of Systems: 12 point review of systems was assessed and was negative except as noted in the HPI Exam Narrative: General: No acute distress, alert and oriented per baseline, aphasic and nonverbal at baseline HEENT: Atraumatic, normocephalic, mucous membranes moist CV: Regular rate and rhythm, S1, S2 Lungs: Clear to auscultation bilaterally, no rales or crackles noted, no wheezes, good air entry Abdomen: Soft, nontender, nondistended Extremities: Normal to inspection Skin: No rashes noted, no lesions or wounds seen Psych: Euthymic, normal affect Objective Data Vital Signs Vital Signs: Vital Signs - 24 hr 0
[2022-12-19 20:00] VITALS: PULSE 104; RESP 20; O2SAT 100
[2022-12-19 21:18] VITALS: BP 147/85; PULSE 104; RESP 20; TEMP 36.7; O2SAT 100
[2022-12-20 06:00] VITALS: BP 137/96; PULSE 92; RESP 24; TEMP 36.6; O2SAT 100
[2022-12-20] MEDS: GABAPENTIN 100 MG CAPSULE FEED TUBE ×3 (08:15→16:12)
[2022-12-20] MEDS: GLYCOPYRROLATE 1 MG TABLET FEED TUBE ×3 (08:15→16:12)
[2022-12-20] MEDS: LORATADINE 10 MG TABLET FEED TUBE (08:15)
[2022-12-20] MEDS: ASPIRIN 81 MG CHEWABLE TABLET FEED TUBE (08:15)
[2022-12-20] MEDS: LACTULOSE 20 GM/30 ML UDC 10 GM FEED TUBE (08:15)
[2022-12-20] MEDS: ATORVASTATIN 40 MG TABLET 80 MG PO (08:15)
[2022-12-20] MEDS: SUCRALFATE 1 GM TABLET FEED TUBE ×2 (08:15→16:12)
[2022-12-20] MEDS: CLOPIDOGREL BISULFATE 75 MG TABLET FEED TUBE (08:15)
[2022-12-20] MEDS: FLUoxetine HCL 20 MG CAPSULE FEED TUBE (08:16)
[2022-12-20] MEDS: OXACILLIN SODIUM 2 GM in SODIUM CHLORIDE 0.9% IV 100 ML IVPB ×4 (08:16→21:56)
[2022-12-20] MEDS: ENOXAPARIN 40 MG/0.4 ML SYRINGE SUB-Q (08:16)
[2022-12-20] MEDS: SCOPOLAMINE 1.5 MG PATCH 1 MG TRANSDERM (08:16)
--- NOTE | 2022-12-20 09:16 | PM.DS ---
DS: Admitting Diagnosis Discharge Date 12/20/22 Admitting Diagnosis unresponsive episode DS: Discharge Diagnosis Discharge Diagnosis (1) Bacteremia: Code(s): R78.81 - Bacteremia Status: Acute Assessment and Plan: BCx on admission in 3/4 bottles growing Staph capitis. Sensitivities noted. More likely from skin source but possibly related to pneumonia as a source. Echocardiogram is not show any obvious vegetations. Repeat blood cultures NGTD. Continue Rocephin/Azithro/Vanco through 12/19/22 to cover for PNA (in case Staph capitis is not the etiology of the PNA). Then change to oxacillin to complete a 14 day total course for the bacteremia from negative culture. Place Midline if repeat BCx negative. Consider SUNNI if repeat BCx positive. (2) Pneumonia: Code(s): J18.9 - Pneumonia, unspecified organism Status: Acute Assessment and Plan: CXR showing LLL airspace disease. Rocephin + azithromycin started at admission 12/14. Vanco added 12/16. Elevate head of bed given aspiration risk. Remains on room air. As above (3) Syncopal episodes: Code(s): R55 - Syncope and collapse Status: Acute Assessment and Plan: Patient had a syncopal episode while working with therapy. According to the he was staring and was unresponsive for about a minute. He did have mild tremors, but no gross seizure activity. Likely 2/2 hypotension from pneumonia. Seizure is still a possibility, but seems less likely. He was hypotensive on arrival and likely this was the cause of the unresponsive episode. Echo showing EF 60-65% with abnormal diastolic dysfunction. Carotid US <50% stenosis bilateral carotid arteries. 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 BP better so IV fluids stopped. BP normal but not elevated to require resuming anti-HTN meds. Continue to follow. (4) Hypotension: Code(s): I95.9 - Hypotension, unspecified Status: Acute Assessment and Plan: Dehydration vs medication side effect vs sepsis from PNA. Suspect related to PNA. Antihypertensive meds on hold. Not sure why patient is on an CRISTI and an ARB but would not restart both at discharge. BP stable. Begin to resume anti-HTN meds one at a time as BP requires. (5) Acute on chronic kidney failure: Code(s): N17.9 - Acute kidney failure, unspecified; N18.9 - Chronic kidney disease, unspecified Status: Acute Assessment and Plan: Cr 1.4 on admission. Suspect prerenal etiology. Renal US showing normal kidneys. Holding nephrotoxic agents. Repeat Cr normal now. Follow. (6) Dysphagia: Code(s): R13.10 - Dysphagia, unspecified Status: Acute Assessment and Plan: E levate head of bed. Continue G-tube feedings and free water flushes. Plan DVT prophylaxis with lovenox Code status full code DS: Summary Hospital Course Hospital Course: 67-year-old male with history of CVA and residual deficits of dysphagia, expressive aphasia, bilateral weakness and G-tube dependence for nutrition is presenting a nursing facility with an unresponsive episode concerning for seizure versus syncope found to be hypotensive in the ER possibly secondary to pneumonia, being treated with antibiotics. BCx on admission in 3/4 bottles growing Staph capitis. Sensitivities noted. More likely from skin source but possibly related to pneumonia as a source.? Echocardiogram is not show any obvious vegetations.? Repeat blood cultures NGTD. Continue Rocephin/Azithro/Vanco through 12/19/22 to cover for PNA (in case Staph capitis is not the etiology of the PNA). Then change to oxacillin to complete a 14 day total course for the bacteremia from negative culture. Midline placed, repeat bld cx negative. Please see above and med rec for details. Time Spent with Patient Time attestation: Total time spent providing and/or coordinating discharge services: Exam Narrative: General: No acute di
[2022-12-20] MEDS: FUROSEMIDE 40 MG TABLET PO (09:56)
[2022-12-20] MEDS: lisinopriL 20 MG TABLET PO (09:56)
[2022-12-20] MEDS: SPIRONOLACTONE 25 MG TABLET PO (09:57)
[2022-12-20] MEDS: amLODIPine BESYLATE 5 MG TABLET 10 MG PO (09:57)
[2022-12-20 14:08] VITALS: BP 100/78; PULSE 69; RESP 20; TEMP 36.2; O2SAT 100
[2022-12-20] MEDS: SALINE LOCK FLUSH 10 ML IV PUSH ×2 (14:39→21:57)
--- NOTE | 2022-12-20 18:20 | PM.IMPN ---
Progress Note: A&P Assessment and Plan (1) Bacteremia: Code(s): R78.81 - Bacteremia Status: Acute Assessment and Plan: BCx on admission in 3/4 bottles growing Staph capitis. Sensitivities noted. More likely from skin source but possibly related to pneumonia as a source. Echocardiogram is not show any obvious vegetations. Repeat blood cultures NGTD. Continue Rocephin/Azithro/Vanco through 12/19/22 to cover for PNA (in case Staph capitis is not the etiology of the PNA). Then change to oxacillin to complete a 14 day total course for the bacteremia from negative culture. Midline placed today, discharge tomorrow with oxacillin at the SNF (2) Pneumonia: Code(s): J18.9 - Pneumonia, unspecified organism Status: Acute Assessment and Plan: CXR showing LLL airspace disease. Rocephin + azithromycin started at admission 12/14. Vanco added 12/16. Elevate head of bed given aspiration risk. Remains on room air. As above (3) Syncopal episodes: Code(s): R55 - Syncope and collapse Status: Acute Assessment and Plan: Patient had a syncopal episode while working with therapy. According to the he was staring and was unresponsive for about a minute. He did have mild tremors, but no gross seizure activity. Likely 2/2 hypotension from pneumonia. Seizure is still a possibility, but seems less likely. He was hypotensive on arrival and likely this was the cause of the unresponsive episode. Echo showing EF 60-65% with abnormal diastolic dysfunction. Carotid US <50% stenosis bilateral carotid arteries. 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 BP better so IV fluids stopped. BP normal but not elevated to require resuming anti-HTN meds. Continue to follow. (4) Hypotension: Code(s): I95.9 - Hypotension, unspecified Status: Acute Assessment and Plan: Dehydration vs medication side effect vs sepsis from PNA. Suspect related to PNA. Antihypertensive meds on hold. Not sure why patient is on an CRISTI and an ARB but would not restart both at discharge. BP stable. Begin to resume anti-HTN meds one at a time as BP requires. (5) Acute on chronic kidney failure: Code(s): N17.9 - Acute kidney failure, unspecified; N18.9 - Chronic kidney disease, unspecified Status: Acute Assessment and Plan: Cr 1.4 on admission. Suspect prerenal etiology. Renal US showing normal kidneys. Holding nephrotoxic agents. Repeat Cr normal now. Follow. (6) Dysphagia: Code(s): R13.10 - Dysphagia, unspecified Status: Acute Assessment and Plan: Elevate head of bed. Continue G-tube feedings and free water flushes. Plan DVT prophylaxis with lovenox Code status full code Subjective Date/time seen: 12/20/22 18:20 Interval history: 67yo male with history of stroke which has left him with dysphagia, expressive aphasia, and bilateral weakness who presented to the emergency department via EMS from [facility] for evaluation after an unresponsive episode.? No overnight events noted. No pain or shortness of breath. No vomiting or diarrhea. No fevers or chills. Review of Systems Review of Systems: ROS unobtainable: Yes unobtainable due to mental status Exam Narrative: General: No acute distress, alert and oriented per baseline, aphasic and nonverbal at baseline HEENT: Atraumatic, normocephalic, mucous membranes moist CV: Regular rate and rhythm, S1, S2 Lungs: Clear to auscultation bilaterally, no rales or crackles noted, no wheezes, good air entry Abdomen: Soft, nontender, nondistended Extremities: Normal to inspection Skin: No rashes noted, no lesions or wounds seen Psych: Euthymic, normal affect Objective Data Vital Signs Vital Signs: Vital Signs - 24 hr 12/19/22 21:18 12/19/22 20:00 12/20/22 06:00 Temperature 98.1 F 98 F Pulse Rate 104 H 104 H 92 Respiratory Rate 20 20 24 H Blood Pressure 147/85 H
[2022-12-20 20:00] VITALS: PULSE 104; RESP 24; O2SAT 98
[2022-12-20 20:29] VITALS: BP 130/88; PULSE 104; RESP 24; TEMP 36.8; O2SAT 98
[2022-12-21] MEDS: OXACILLIN SODIUM 2 GM in SODIUM CHLORIDE 0.9% IV 100 ML IVPB ×5 (01:00→16:51)
[2022-12-21] MEDS: SALINE LOCK FLUSH 10 ML IV PUSH ×2 (05:42→13:35)
[2022-12-21] MEDS: LANSOPRAZOLE ORAL SUSP 30 MG/10 ML ORAL.SUSP FEED TUBE (05:43)
[2022-12-21 06:37] VITALS: BP 117/78; PULSE 92; RESP 18; TEMP 36.8; O2SAT 97
[2022-12-21 08:00] VITALS: BP 102/69; PULSE 71; RESP 18; TEMP 36.4; O2SAT 99
[2022-12-21] MEDS: ATORVASTATIN 40 MG TABLET 80 MG PO (08:37)
[2022-12-21] MEDS: GABAPENTIN 100 MG CAPSULE FEED TUBE ×3 (08:37→16:51)
[2022-12-21] MEDS: SPIRONOLACTONE 25 MG TABLET PO (08:37)
[2022-12-21] MEDS: amLODIPine BESYLATE 5 MG TABLET 10 MG PO (08:37)
[2022-12-21] MEDS: FLUoxetine HCL 20 MG CAPSULE FEED TUBE (08:37)
[2022-12-21] MEDS: LORATADINE 10 MG TABLET FEED TUBE (08:37)
[2022-12-21] MEDS: SUCRALFATE 1 GM TABLET FEED TUBE ×2 (08:37→16:51)
[2022-12-21] MEDS: CLOPIDOGREL BISULFATE 75 MG TABLET FEED TUBE (08:37)
[2022-12-21] MEDS: GLYCOPYRROLATE 1 MG TABLET FEED TUBE ×3 (08:37→16:51)
[2022-12-21] MEDS: FUROSEMIDE 40 MG TABLET PO (08:37)
[2022-12-21] MEDS: ASPIRIN 81 MG CHEWABLE TABLET FEED TUBE (08:37)
[2022-12-21] MEDS: ENOXAPARIN 40 MG/0.4 ML SYRINGE SUB-Q (08:38)
[2022-12-21] MEDS: lisinopriL 20 MG TABLET PO (08:38)
[2022-12-21] MEDS: LACTULOSE 20 GM/30 ML UDC 10 GM FEED TUBE (08:38)
--- NOTE | 2022-12-21 10:33 | PM.DS ---
DS: Admitting Diagnosis Discharge Date 12/21/22 Admitting Diagnosis syncope DS: Discharge Diagnosis Discharge Diagnosis (1) Bacteremia: Code(s): R78.81 - Bacteremia Status: Acute Assessment and Plan: BCx on admission in 3/ bottles growing Staph capitis. Sensitivities noted. More likely from skin source but possibly related to pneumonia as a source.? Echocardiogram is not show any obvious vegetations.? Repeat blood cultures NGTD. Continue Rocephin/Azithro/Vanco through 12/19/22 to cover for PNA (in case Staph capitis is not the etiology of the PNA). Then change to oxacillin to complete a 14 day total course for the bacteremia from negative culture.? Midline placed today, discharge tomorrow with oxacillin at the SNF (2) Pneumonia: Code(s): J18.9 - Pneumonia, unspecified organism Status: Acute Assessment and Plan: CXR showing LLL airspace disease. Rocephin + azithromycin started at admission 12/14. Vanco added 12/16. Elevate head of bed given aspiration risk. Remains on room air. As above (3) Syncopal episodes: Code(s): R55 - Syncope and collapse Status: Acute Assessment and Plan: Patient had a syncopal episode while working with therapy. According to the he was staring and was unresponsive for about a minute. He did have mild tremors, but no gross seizure activity. Likely 2/2 hypotension from pneumonia. Seizure is still a possibility, but seems less likely. He was hypotensive on arrival and likely this was the cause of the unresponsive episode. Echo showing EF 60-65% with abnormal diastolic dysfunction. Carotid US <50% stenosis bilateral carotid arteries. 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 BP better so IV fluids stopped. BP normal but not elevated to require resuming anti-HTN meds. Continue to follow. (4) Hypotension: Code(s): I95.9 - Hypotension, unspecified Status: Acute Assessment and Plan: Dehydration vs medication side effect vs sepsis from PNA. Suspect related to PNA. Antihypertensive meds on hold. Not sure why patient is on an CRISTI and an ARB but would not restart both at discharge. BP stable. Begin to resume anti-HTN meds one at a time as BP requires. (5) Acute on chronic kidney failure: Code(s): N17.9 - Acute kidney failure, unspecified; N18.9 - Chronic kidney disease, unspecified Status: Acute Assessment and Plan: Cr 1.4 on admission. Suspect prerenal etiology. Renal US showing normal kidneys. Holding nephrotoxic agents. Repeat Cr normal now. Follow.? (6) Dysphagia: Code(s): R13.10 - Dysphagia, unspecified Status: Acute Assessment and Plan: Elevate head of bed. Continue G-tube feedings and free water flushes. Plan DVT prophylaxis with lovenox Code status full code DS: Summary Hospital Course Hospital Course: 67-year-old male with history of CVA and residual deficits of dysphagia, expressive aphasia, bilateral weakness and G-tube dependence for nutrition is presenting a nursing facility with an unresponsive episode concerning for seizure versus syncope found to be hypotensive in the ER possibly secondary to pneumonia, being treated with antibiotics. BCx on admission in 3/4 bottles growing Staph capitis. Sensitivities noted. More likely from skin source but possibly related to pneumonia as a source.? Echocardiogram is not show any obvious vegetations.? Repeat blood cultures NGTD. Continue Rocephin/Azithro/Vanco through 12/19/22 to cover for PNA (in case Staph capitis is not the etiology of the PNA). Then change to oxacillin to complete a 14 day total course for the bacteremia from negative culture. Midline placed, repeat bld cx negative. Please see above and med rec for details. Time Spent with Patient Time attestation: Total time spent providing and/or coordinating discharge services: Exam Narrative: General: No acute distress, alert and oriented pe
[2022-12-21 16:00] VITALS: BP 121/80; PULSE 66; RESP 14; TEMP 36.6; O2SAT 100
--- NOTE | 2022-12-21 18:01 | PC.NURSE ---
Called and gave report to Dion at 1800.
[2022-12-21 18:05] LABS: EDCOVIDSCREEN Negative (Negative)
== END 2022-12-21 21:00 | DRG 194 ==
LOC: ANHED 18:01 → ANH3MEDSUR 18:32 → ANHIMU 22:41 → ANH3MEDSUR 12-18 17:53
PROVIDERS: Emergency Medicine; Internal Medicine; Physician Assistant; Admitting Provider Student in an Organized Health Care Education/Training Program; Emergency Provider Emergency Medicine; PCP Family Medicine; Visit Provider Student in an Organized Health Care Education/Training Program
DX: J18.9 Pneumonia, unspecified organism (principal); N17.9 Acute kidney failure, unspecified; I95.9 Hypotension, unspecified; R55 Syncope and collapse; I51.89 Other ill-defined heart diseases; N18.9 Chronic kidney disease, unspecified; R13.10 Dysphagia, unspecified; I69.991 Dysphagia following unspecified cerebrovascular disease; I69.920 Aphasia following unspecified cerebrovascular disease; E78.2 Mixed hyperlipidemia; Z20.822 Contact with and (suspected) exposure to COVID-19; Z85.46 Personal history of malignant neoplasm of prostate; Z93.1 Gastrostomy status; Z92.3 Personal history of irradiation; Z79.899 Other long term (current) drug therapy
CPT/HCPCS: 36415; 36569; 36600; 70450; 71045; 76775; 80048; 80053; 80202; 81001; 82565; 82805; 83605; 83735; 84100; 85025; 85027; 85610; 85730; 86140; 87040; 87081; 87147; 87181; 87186; 87426; 93005; 93306; 93880; 96361; 96365; 96367; 96372; 99285; A9270; C1751; C9803; G0378; J0456; J0696; J1650; J2700; J3370; J7030; J7040

== ENCOUNTER 2023-03-25 12:31 | Emergency (ER) | payer MEDICARE, MEDICAID, SELFPAY ==
--- NOTE | ~2023-03-25 | CT_ITS ---
EXAMINATION: CT lumbar spine wo con DATE: 03/25/2023 13:39 INDICATION: Back pain. TECHNIQUE: Computed tomography (CT) of the lumbar spine was performed without intravenous contrast. A utomated exposure control and iterative reconstruction technique were employed. The dose-length produ ct was 1065.29 mGy-cm. COMPARISON: None FINDINGS: There is 13 degrees levoscoliosis of lumbar spine. There is 3 mm retrolisthesis of L5 on S1 . Vertebral body heights are normal. There is mildly decreased disc height at L1-L2, moderately decre ased disc height at L2-L3 and L3-L4, severely decreased disc height at L4-L5, and mildly decreased di sc height at L5-S1. The following disc levels are specifically discussed: L1-L2: The disc is bulging. There is mild bilateral facet joint osteoarthritis. There is mild left ne ural foraminal stenosis. There is mild central canal stenosis. L2-L3: The disc is bulging. There is mild bilateral facet joint osteoarthritis. There is mild bilater al neural foraminal stenosis. There is mild central canal stenosis. L3-L4: The disc is bulging. There is moderate right and mild left facet joint osteoarthritis. There i s moderate right and mild left neural foraminal stenosis. There is mild central canal stenosis. L4-L5: The disc is bulging. There is moderate bilateral facet joint osteoarthritis. There is moderate bilateral neural foraminal stenosis. There is mild central canal stenosis. L5-S1: The disc is bulging. There is moderate right and severe left facet joint osteoarthritis. There is moderate bilateral neural foraminal stenosis. There is mild central canal stenosis. IMPRESSION: 1. Severe lumbar spondylosis. 2. Lumbar levoscoliosis. Reviewed, dictated and finalized at location A.
--- NOTE | ~2023-03-25 | XR_ITS ---
EXAMINATION: XR shoulder RT min 2V DATE: 03/25/2023 13:48 INDICATION: Right shoulder pain after rolling off a bed TECHNIQUE: AP internally and externally rotated, AP oblique externally rotated and transscapular Y vi ews of the right shoulder were obtained. COMPARISON: None FINDINGS: Normal alignment. No fracture. Moderate right glenohumeral and acromioclavicular osteoarthritis with moderate size marginal osteophytes about the humeral head and glenoid and small inferiorly directed osteophytes at the lateral head of the clavicle. Soft tissues are unremarkable. Visualized portions o f the lungs are clear. IMPRESSION: The right glenohumeral and acromioclavicular osteoarthritis. No acute osseous abnormality. Reviewed, dictated and finalized at location L. IMPRESSION: The right glenohumeral and acromioclavicular osteoarthritis. No acute osseous a bnormality.
--- NOTE | ~2023-03-25 | CT_ITS ---
CT head without contrast Indication: Head injury Technique: Serial scans were obtained through the brain without the administration of contrast. Dose reduction technique was used on this scan by utilizing automated exposure control and iterative recon struction technique. The dose-length product (DLP) was 681.00 mGy-cm. Findings: There is no evidence of intracranial hemorrhage, mass lesion, or acute infarct. The ventri cles and subarachnoid spaces are dilated, consistent with minimal atrophy. Low attenuation regions a re seen within the periventricular white matter bilaterally, likely representing changes from chronic microvascular ischemic disease. There is no evidence of edema, mass effect or midline shift. The v isualized paranasal sinuses and mastoid air cells are clear. Impression: No intracranial hemorrhage, mass, or acute infarct. Atrophy and chronic white matter changes, as above. Reviewed, dictated and finalized at location . Impression: No intracranial hemorrhage, mass, or acute infarct. Atrophy and chronic white matter changes, as above.
--- NOTE | ~2023-03-25 | XR_ITS ---
AP view of the pelvis and AP and lateral views of the right hip Clinical history: Pain Findings: No acute fracture or dislocation is seen. Osseous alignment is anatomic. Mild degenerative change of both hips noted. Soft tissues are unremarkable. Impression: Mild degenerative change of both hips. Reviewed, dictated and finalized at location . Impression: Mild degenerative change of both hips.
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
[2023-03-25 12:31] VITALS: BP 122/93; PULSE 81; RESP 18; TEMP 36.2; O2SAT 100
--- NOTE | 2023-03-25 12:47 | PC.NURSE ---
pt has hx of stroke and now has aphasia at baseline. ems reported from [facility] that he is paralyzed as well. pt in [place] so unable to shake head for yes or no while communicating. used 1 blink for yes and 2 blinks for no to communicate until family member could arrive.
[2023-03-25] MEDS: fentaNYL CITRATE INJ (*CRX) 100 MCG/2 ML VIAL 50 MCG IV PUSH (13:10)
--- NOTE | 2023-03-25 13:10 | ED.FALL ---
HPI - Fall General Chief Complaint: Fall Stated Complaint: fall-head injury Time Seen by Provider: 03/25/23 12:55 History of Present Illness HPI Narrative: 67-year-old male with history of paralysis presented the emergency department for evaluation after falling from bed. Nursing staff was rolling him for a cleaning and they rolled him off the bed. Patient did strike his head but had no loss of consciousness. Patient is complaining of head neck back and hip pain Related Data Home Medications Medication Instructions Recorded Confirmed aspirin 81 mg chewable tablet 81 mg PO DAILY 12/14/22 12/14/22 atorvastatin 40 mg tablet 80 mg PO DAILY 12/14/22 12/14/22 baclofen 10 mg tablet 10 mg PO BID PRN Spasms 12/14/22 12/14/22 benazepril 20 mg tablet 20 mg PO DAILY 12/14/22 12/14/22 cetirizine 10 mg tablet 10 mg PO DAILY 12/14/22 12/14/22 clopidogrel 75 mg tablet 75 mg feeding tube DAILY 12/14/22 12/14/22 diphenhydramine HCl 25 mg capsule 25 mg PO HS PRN Insomnia 12/14/22 12/14/22 (Benadryl) enoxaparin 40 mg/0.4 mL 40 mg subcut DAILY 12/14/22 12/14/22 subcutaneous syringe fluoxetine 20 mg tablet 20 mg feeding tube DAILY 12/14/22 12/14/22 furosemide 40 mg tablet 40 mg PO DAILY 12/14/22 12/14/22 gabapentin 100 mg capsule 100 mg feeding tube TID 12/14/22 12/14/22 glycopyrrolate 1 mg tablet 1 mg feeding tube TID 12/14/22 12/14/22 lactulose 10 gram/15 mL oral 10 g feeding tube DAILY 12/14/22 12/14/22 solution melatonin 3 mg tablet 3 mg feeding tube HS PRN Insomnia 12/14/22 12/14/22 pantoprazole 40 mg granules 40 mg PO DAILY 12/14/22 12/14/22 delayed-release for susp in packet scopolamine base 1 mg over 3 days 1 mg transdermal DAILY 12/14/22 12/14/22 transdermal patch spironolactone 25 mg tablet 25 mg PO DAILY 12/14/22 12/14/22 sucralfate 1 gram tablet 1 g feeding tube BID 12/14/22 12/14/22 acetaminophen 325 mg tablet 650 mg feeding tube PRN PRN Pain 12/15/22 12/15/22 Allergies Allergy/AdvReac Type Severity Reaction Status Date / Time clonidine Allergy Intermediate hives Verified 12/14/22 22:48 Review of Systems Review of Systems: All systems reviewed & are unremarkable except as noted in HPI and below PMFSH Past Medical History Medical History (Updated 03/25/23 @ 15:13 by Jerson Whatley MD) 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 Vitamin D deficiency, unspecified Surgical History Surgical History (Updated 12/16/22 @ 14:10 by Noy Delaney PA-C) History of gastrostomy tube placement Family History Family History Mother Dementia Father Cerebrovascular accident Social History Social History (Updated 12/16/22 @ 14:13 by Noy Delaney PA-C) Social History: Surrogate medical decision maker: Christelle Jones, . Code status: Full code. Smoking status: Never smoker Alcohol intake: never Substance use: never Lack of Transportation: No Lack of Food: Never True Current Housing: I Have Housing Concerned About Future Housing: No Difficulty Paying Gas/Electric Bills: No Difficulty Paying for Meds: No Currently Unemployed: No Education: High School Diploma/GED Difficulty w/ Childcare or Family Care: No Spiritual care concerns: No Exam Narrative: APPEARANCE: No distress HEAD: normocephalic, atraumatic. EYES: PERRLA/EOMI, conjunctivae clear. NOSE: Normal no drainage NECK: Supple. No adenopathy, no masses. RESPIRATORY: Airway patent, respirations nonlabored. Clear to auscultation bilaterally, no rales, rhonchi, wheezing. CARDIOVASCULAR: Regular rate and rhythm without murmu
--- NOTE | 2023-03-25 13:37 | PC.NURSE ---
Patient off unit to CT.
[2023-03-25 13:49] VITALS: BP 118/96; PULSE 77; RESP 18; O2SAT 97
[2023-03-25 14:16] VITALS: BP 125/93; PULSE 78; RESP 14; O2SAT 97
--- NOTE | 2023-03-25 16:42 | PC.NURSE ---
attempted twice to call report to [facility].
[2023-03-25 17:24] VITALS: BP 104/79; PULSE 69; RESP 16; O2SAT 97
== END 2023-03-25 17:30 ==
PROVIDERS: Emergency Provider Emergency Medicine; PCP Internal Medicine
DX: S09.90XA Unspecified injury of head, initial encounter (principal); S49.91XA Unspecified injury of right shoulder and upper arm, initial encounter; S79.911A Unspecified injury of right hip, initial encounter; M54.50 Low back pain, unspecified; I10 Essential (primary) hypertension; E78.2 Mixed hyperlipidemia; Z86.73 Personal history of transient ischemic attack (TIA), and cerebral infarction without residual deficits; Z85.46 Personal history of malignant neoplasm of prostate; W06.XXXA Fall from bed, initial encounter
CPT/HCPCS: 70450; 72125; 72131; 73030; 73502; 96374; 99284; J3010

== ENCOUNTER 2023-08-09 15:57 | Emergency (ER) | payer MEDICARE, MEDICAID, SELFPAY ==
[2023-08-09] VITALS (16 sets, daily range): BP systolic 116–121; BP diastolic 83–97; PULSE 59–66; RESP 14–20; TEMP 36.3; O2SAT 96–100
--- NOTE | ~2023-08-09 | CT_ITS ---
EXAMINATION: CT abdomen pelvis w con INDICATION: G-tube site complication/infection TECHNIQUE: Computed tomographic images of the abdomen and pelvis were obtained after the administrati on of 100 cc of Omnipaque 350 intravenous contrast. The dose-length product (DLP) was 1467.69 mGy-cm. Automated exposure control and iterative reconstruction technique were employed. COMPARISON: None available FINDINGS: Minimal dependent atelectasis is present in the lung bases. The heart size is normal. Bilat eral gynecomastia is noted. The G-tube is in place. There is subtle inflammation surrounding the G-tu be tract and the skin without evidence of abscess. There is a 5 mm cyst of the right hepatic lobe. Th e spleen, pancreas, gallbladder, and adrenal glands are normal. The kidneys are unremarkable. No path ologically enlarged abdominal or pelvic lymph nodes are identified. A large volume of colonic stool i s present. No free intraperitoneal gas or evidence of bowel obstruction. There is severe lumbar spond ylosis. There is an umbilical hernia containing fat. IMPRESSION: 1. G-tube in expected position with subtle inflammation surrounding the tract and the skin without ev idence of abscess. 2. Constipation. Reviewed, dictated and finalized at location F. ER IMPRESSION: 1. G-tube in expected position with subtle inflammation surrounding the tract a nd the skin without evidence of abscess. 2. Constipation.
[2023-08-09 17:15] LABS: Basophils Absolute Auto 0.1 K/mm3 (0.0-0.1); Basophils Percent Auto 0.7 % (0.2-1.2); Eosinophils Absolute Auto 0.4 K/mm3 (0-0.3); Eosinophils Percent Auto 4.5 % (0-4.4); Hematocrit 39.3 % (42.0-52.0); Hemoglobin 12.3 g/dL (14.0-18.0); Immature Granulocyte Absolute 0.04 K/mm3 (0.00-0.031); Immature Granulocyte Percent A 0.4 % (0-0.5); Lymphocytes Absolute Auto 2.49 K/mm3 (0.9-3.2); Lymphocytes Percent Auto 26.2 % (18.3-44.2); Mean Corpuscular HGB Conc 31.3 g/dl (32-36); Mean Corpuscular Hemoglobin 28.3 pg (26-34); Mean Corpuscular Volume 90.3 fl (80-100); Mean Platelet Volume 10.9 fl (7.4-10.4); Monocytes Absolute Auto 0.6 K/mm3 (0.1-0.6); Monocytes Percent Auto 6.2 % (2.6-8.5); Neutrophils Absolute Auto 5.9 K/mm3 (1.3-6.7); Platelet Count Result 234 k/mm3 (150-375); Red Blood Count 4.35 M/mm3 (4.6-6.20); Red Cell Distribution Width 15.1 % (11.5-14.5); White Blood Count 9.5 K/mm3 (4.5-10.0)
[2023-08-09 17:25] LABS: Alanine Aminotransferase 103 U/L (6-50); Albumin Level 4.2 g/dL (3.5-5.1); Alkaline Phosphatase 81 U/L (38-126); Anion Gap 7 mmol/L (8-16); Aspartate Amino Transferase 52 U/L (17-59); Bilirubin,Total 0.7 mg/dL (0.2-1.3); Blood Urea Nitrogen 17 mg/dL (9-20); Calcium 9.3 mg/dL (8.4-10.2); Carbon Dioxide 30 mmol/L (22-30); Chloride 101 mmol/L (98-107); Estimated Glomerular Filt Rate > 60; Glucose 75 mg/dL (65-110); Potassium 4.5 mmol/L (3.4-5.0); Sodium 138 mmol/L (137-145)
[2023-08-09 17:31] LABS: Prothrombin Time 13.6 Seconds (11.1-14.7)
[2023-08-09 17:36] LABS: Estimated Glomerular Filt Rate > 60
--- NOTE | 2023-08-09 18:05 | ED.GENADULT ---
HPI - General Adult General Chief complaint: Unspecified Stated complaint: g-tube malfunction Time Seen by Provider: 08/09/23 16:12 History of Present Illness HPI narrative: Patient is a 67-year-old male who presents ER with drainage from around his G-tube site. There is some purulence noted. No erythema. Patient without fever. He had a G-tube placed due to CVA last year. It is not been changed was placed at [facility]. Review of Systems Review of Systems: ROS unobtainable: Yes unobtainable due to medical condition PMFSH Past Medical History Medical History (Updated 08/09/23 @ 18:30 by Demian Shook MD) CVA (cerebral vascular accident) Hyperlipidemia Hypertension Surgical History Surgical History (Updated 08/09/23 @ 18:26 by Demian Shook MD) Gastrointestinal tube present Exam Narrative: GENERAL: Chronically ill-appearing, well-nourished, and in no acute distress. HEAD: Normocephalic, atraumatic. ENT: Mucous membranes moist. CHEST: Clear to auscultation. No respiratory distress. HEART: Regular rate and rhythm. Normal peripheral pulses. ABDOMEN: Soft, nontender, nondistended. G-tube site with her granulation tissue noted and some purulence on the dressing. No overt cellulitis. No purulence could be expressed from the site. NEURO: Awake alert, nonverbal. Course Course Emergency Course: Patient and family informed of lab and imaging results. Will treat with Cipro and Flagyl for possible tract infection. Recommend follow-up with his PCP and GI doctor. Vital Signs Vital signs: Vital Signs Temperature 97.3 F L 08/09/23 15:58 Pulse Rate 61 08/09/23 15:58 Respiratory Rate 18 08/09/23 15:58 Blood Pressure 119/89 08/09/23 15:58 Pulse Oximetry 99 08/09/23 15:58 Oxygen Delivery Room Air 08/09/23 15:58 Temperature 97.3 F L 08/09/23 15:58 Pulse Rate 62 08/09/23 17:15 Respiratory Rate 15 08/09/23 17:15 Blood Pressure 121/86 08/09/23 16:31 Pulse Oximetry 97 08/09/23 17:15 Oxygen Delivery Room Air 08/09/23 15:58 Medical Decision Making Vital Signs Vital Signs: Vital Signs Temperature 97.3 F L 08/09/23 15:58 Pulse Rate 61 08/09/23 15:58 Respiratory Rate 18 08/09/23 15:58 Blood Pressure 119/89 08/09/23 15:58 Pulse Oximetry 99 08/09/23 15:58 Oxygen Delivery Room Air 08/09/23 15:58 Temperature 97.3 F L 08/09/23 15:58 Pulse Rate 62 08/09/23 17:15 Respiratory Rate 15 08/09/23 17:15 Blood Pressure 121/86 08/09/23 16:31 Pulse Oximetry 97 08/09/23 17:15 Oxygen Delivery Room Air 08/09/23 15:58 Lab Data 08/09/23 17:09 08/09/23 17:34 Labs: Lab Results 08/09/23 08/09/23 Range/Units 17:09 17:34 WBC 9.5 (4.5-10.0) K/mm3 RBC 4.35 L (4.6-6.20) M/mm3 Hgb 12.3 L (14.0-18.0) g/dL Hct 39.3 L (42.0-52.0) % MCV 90.3 (80-100) fl MCH 28.3 (26-34) pg MCHC 31.3 L (32-36) g/dl RDW 15.1 H (11.5-14.5) % Plt Count 234 (150-375) k/mm3 MPV 10.9 H (7.4-10.4) fl Immature Gran % (Auto) 0.4 (0-0.5) % Neut % (Auto) 62.0 (45.5-73.1) % Lymph % (Auto) 26.2 (18.3-44.2) % [place] % (Auto) 6.2 (2.6-8.5) % Eos % (Auto) 4.5 H (0-4.4) % Baso % (Auto) 0.7 (0.2-1.2) % Lymph # (Auto) 2.49 (0.9-3.2) K/mm3 [place] # (Auto) 0.6 (0.1-0.6) K/mm3 Eos # (Auto) 0.4 H (0-0.3) K/mm3 Baso # (Auto) 0.1 (0.0-0.1) K/mm3 Abs Immat Gran (auto) 0.04 H (0.00-0.031) K/mm3 Absolute Neuts (auto) 5.9 (1.3-6.7) K/mm3 Absolute Nucleated RBC 0.0 (0.0-0.012) K/mm3 Nucleated RBC % 0.0 (0.0-0.2) % PT 13.6 (11.1-14.7) Seconds INR 1.0 APTT 29.0 (22.3-36.8) SECONDS Sodium 138 (137-145) mmol/L Potassium 4.5 (3.4-5.0) mmol/L Chloride 101 (98-107) mmol/L Carbon Dioxide 30 (22-30) mmol/L Anion Gap 7 L (8-16) mmol/L BUN 17 (9-20) mg/dL Creatinine 0.80 0.90 (0.7-1.3) mg/dL Estim Creat Clear C
--- NOTE | 2023-08-09 19:16 | PC.NURSE ---
Attempted to call report to [facility] with no answer. Will try again.
--- NOTE | 2023-08-09 20:14 | PC.NURSE ---
Attempted to call [facility] for nurse report without answer again.
== END 2023-08-09 21:00 | disposition home or self-care (01) ==
PROVIDERS: Emergency Provider Emergency Medicine; PCP Internal Medicine
DX: K94.22 Gastrostomy infection (principal); L08.9 Local infection of the skin and subcutaneous tissue, unspecified; K59.00 Constipation, unspecified; I10 Essential (primary) hypertension; E78.5 Hyperlipidemia, unspecified; Z86.73 Personal history of transient ischemic attack (TIA), and cerebral infarction without residual deficits
CPT/HCPCS: 36415; 74177; 80053; 85025; 85610; 85730; 99284; Q9967

== ENCOUNTER 2023-12-09 08:28 | Outpatient (CLI) | payer OTHER, MEDICARE, MEDICAID, SELFPAY ==
--- NOTE | ~2023-12-09 | XR_ITS ---
MODIFIED ESOPHAGRAM HISTORY: Oropharyngeal dysphagia TECHNIQUE: Modified barium esophagram was performed on 12/09/2023. I administered fluoroscopy and perf ormed the exam with speech pathologist. Patient was seated for lateral fluoroscopic imaging for clarence stion of thin liquids, pudding, solids and quantified amounts, followed by thin liquids in uncontroll ed amounts. This was recorded on tape. A single fluoroscopic spot image was also recorded. The DAP fo r this procedure was 0.535 Gycm2. The amount of fluoroscopy time used during this procedure was 0.9 m inutes. FINDINGS: Oral stage: Adequate function. Pharyngeal stage: Reduced laryngeal elevation, laryngeal adduction and tongue base retraction. There is residue at the vallecula, piriform sinus and along the pharyngeal ferguson. There is both laryngeal p enetration and silent aspiration. Cervical/esophageal stage: Adequate function. IMPRESSION: Pharyngeal dysphagia with laryngeal penetration and silent aspiration. Please correlate with speech pathologist findings and specific feeding recommendations. Reviewed, dictated and finalized at location [facility]. IMPRESSION: Pharyngeal dysphagia with laryngeal penetration and silent aspirati on. Please correlate with speech pathologist findings and specific feeding rec ommendations.
--- NOTE | 2023-12-13 08:41 | REHSTMBS ---
Assessment and note entered by Fatou Harper CONTENT MANAGER Modified Barium Swallow Evaluation Feeding Type Recommended Non-Oral Treatment Recommendations Effortful Swallow,Laryngeal Elevation Exerc,Tongue Base Exercise,Vocal Fold Adduction Exer ST Clinical Summary MODIFIED BARIUM SWALLOW STUDY (MBS) The patient was seen for a Modified Barium Swallow study to assess progress made as he is in Speech Therapy at [facility] in [place]. Patient suffered a CVA approximately two years ago which resulted in severe dysphagia with placement of stomach tube for nutrition/hydration. Ryder, the speech language pathologist at [facility], reports that since patient desires to resume oral feedings, he has been working with him on strengthening exercises and addressing education with and patient concerning patient's likely current swallowing skills, safe swallowing techniques, and risk for aspiration. This MBS was administered to assess patient's progress and to determine most appropriate feeding techniques and exercises. Patient was viewed in the lateral position to the level of C5/C6. Patient was presented first with approximately 1/3 teaspoon of pudding mixed with semi-solid contrast medium and then approximately 1/2 teaspoon of same. On first presentation, patient exhibited delayed swallow with material entering valleculae, filling them, and then spilling over into the pyriform sinuses, again, filling that area as well. Nothing entered the airway and patient triggered the swallow which cleared most of the pooled material. He was then presented with a slightly larger amount of pudding mixture and again spilled it over into the valleculae, then the pyriform sinuses, filling the pharynx prior to swallowing. When he attempted to swallow a mild amount of material forming a ball entered the upper laryngeal vestibule, eventually falling to the level of the vocal cords, then below the vocal cords, then squeezed back above the level of the vocal cords during the swallow. The swallow cleared most of the pharyngeal pooling however it did not clear the ball of pudding mixture in the airway, eventually falling below the level of the vocal cords and finally triggering a delayed cough. Cough did not occur
== END 2023-12-09 08:29 | disposition home or self-care (01) ==
PROVIDERS: PCP Internal Medicine; Visit Provider Family Medicine
DX: R13.12 Dysphagia, oropharyngeal phase (principal)
CPT/HCPCS: 92611

== ENCOUNTER 2024-07-27 10:06 | Emergency (ER) | payer OTHER, MEDICARE, MEDICAID, SELFPAY ==
--- NOTE | ~2024-07-27 | XR_ITS ---
Supine view of the abdomen, following contrast administration via G-tube Clinical history: G-tube placement Findings: Percutaneous gastrostomy tube in satisfactory position. Contrast opacifies small bowel. No abnormal extravasation of contrast seen. Bowel gas pattern is nonspecific. No evidence for obstructio n or free air. No abnormal mass lesion or calcification is seen. Osseous structures are intact. Impression: Gastrostomy tube intraluminal in location. No extravasation of contrast seen. Reviewed, dictated and finalized at [facility]. ORMANCE SPECIALIST Impression: Gastrostomy tube intraluminal in location. No extravasation of contrast seen.
[2024-07-27 10:19] VITALS: BP 123/87; PULSE 87; RESP 16; TEMP 36.8; O2SAT 99
--- NOTE | 2024-07-27 10:27 | ED_ITS ---
HPI - Recheck/Abnormal Lab/Rx General Chief Complaint: Recheck/Abnormal Lab/Rx Stated Complaint: g-tube verification Source: patient, RN notes reviewed and old records reviewed Mode of arrival: EMS Limitations: language barrier and clinical condition History of Present Illness HPI narrative: Patient is a 68 y/o male, with PMH of CVA, G-tube dependence, HTN, HLD, who presents to the ED via EMS with report of G-tube malfunction. Patient is a resident of [facility]. Per penitentiary report, patient had a g- tube malfunction today. [facility] staff was able to place a Stafford catheter to keep stoma open, but were unable to confirm placement with XR imaging, so patient was sent here for further evaluation. Patient is aphasic, unable to voice any concerns. At his neurological baseline per records. Related Data Home Medications Medication Instructions Recorded Confirmed aspirin 81 mg chewable tablet 81 mg PO DAILY 12/14/22 12/14/22 atorvastatin 40 mg tablet 80 mg PO DAILY 12/14/22 12/14/22 baclofen 10 mg tablet 10 mg PO BID PRN Spasms 12/14/22 12/14/22 benazepril 20 mg tablet 20 mg PO DAILY 12/14/22 12/14/22 cetirizine 10 mg tablet 10 mg PO DAILY 12/14/22 12/14/22 clopidogrel 75 mg tablet 75 mg feeding tube DAILY 12/14/22 12/14/22 diphenhydramine HCl 25 mg capsule 25 mg PO HS PRN Insomnia 12/14/22 12/14/22 (Benadryl) enoxaparin 40 mg/0.4 mL 40 mg subcut DAILY 12/14/22 12/14/22 subcutaneous syringe fluoxetine 20 mg tablet 20 mg feeding tube DAILY 12/14/22 12/14/22 furosemide 40 mg tablet 40 mg PO DAILY 12/14/22 12/14/22 gabapentin 100 mg capsule 100 mg feeding tube TID 12/14/22 12/14/22 glycopyrrolate 1 mg tablet 1 mg feeding tube TID 12/14/22 12/14/22 lactulose 10 gram/15 mL oral 10 g feeding tube DAILY 12/14/22 12/14/22 solution melatonin 3 mg tablet 3 mg feeding tube HS PRN Insomnia 12/14/22 12/14/22 pantoprazole 40 mg granules 40 mg PO DAILY 12/14/22 12/14/22 delayed-release for susp in packet scopolamine base 1 mg over 3 days 1 mg transdermal DAILY 12/14/22 12/14/22 transdermal patch spironolactone 25 mg tablet 25 mg PO DAILY 12/14/22 12/14/22 sucralfate 1 gram tablet 1 g feeding tube BID 12/14/22 12/14/22 acetaminophen 325 mg tablet 650 mg feeding tube PRN PRN Pain 12/15/22 12/15/22 Allergies Allergy/AdvReac Type Severity Reaction Status Date / Time clonidine Allergy Intermediate hives Verified 09/29/23 15:18 Review of Systems Review of Systems: ROS unobtainable: Yes unobtainable due to medical condition and unobtainable due to mental status [facility] Past Medical History Medical History 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 Vitamin D deficiency, unspecified Surgical History Surgical History Gastrointestinal tube present History of gastrostomy tube placement Family History Family History Mother Dementia Father Cerebrovascular accident Social History Social History Social History: Surrogate medical decision maker: Christelle Jones, . Code status: Full code. Smoking status: Never smoker Alcohol intake: never Substance use: never Lack of Transportation: No Lack of Food: Never True Current Housing: I Have Housing Concerned About Future Housing: No Difficulty Paying Gas/Electric Bills: No Difficulty Paying for Meds: No Currently Unemployed: No Education: High School Diploma/GED Difficulty w/ Childcare or Family Care: No Spiritual care concerns: No Exam Narrative: GENERAL: Chronically ill appearing, non-toxic, in no acute distress. HEAD: Normocephalic, atraumatic. RESPIRATORY: Airway patent, respirations nonlabored. CARDIOVASCULAR: Regular rate and rhythm ABDOMINAL: Soft, nondistended. Normoactive BS. No appreciable tenderness. G- tube in left upper abdomen. MUSCULOSKELETAL: No gross deformities. SKIN: Warm, dry, normal color. NEURO: Alert, tracks movement. Speech is aphasic, unable to answer questions appropriately. No ataxic movements. PSYCHIATRIC: aphasic, unable to communicate. Course Vital Signs Vital signs: Vital Signs Temperature 98.2 F 07/27/24 10:19 Pulse Rate 87 07/27/24 10:19 Respiratory Rate 16 07/27/24 10:19 Blood Pressure 123/87 07/27/24 10:19 Pulse Oximetry 99 07/27/24 10:19 Temperature 98.2 F 07/27/24 10:19 Pulse Rate 87 07/27/24 10:19 Respiratory Rate 16 07/27/24 10:19 Blood Pressure 123/87 07/27/24 10:19 Pulse Oximetry 99 07/27/24 10:19 Procedures Feeding Tube Replacement Feeding Tube #1: Feeding Tube Placement Date: 07/27/24 Feeding Tube Placement Time: 10:50 Type of Tube: gastrostomy Insertion Site Prior to Procedure: clean Tube Used for Reinsertion: Bard Mongolian Tube Size (F): 18 Balloon size (mL): 20 Verification of Placement: KUB and gastrografin injection Tube Secured by: tape/dressing Patient Tolerated Procedure: well and no complications Complications: other (none) MDM - Recheck/Abnormal Lab/Rx MDM Narrative Medical decision making narrative: Patient presented to ED with G-tube malfunction, sent for confirmation of G- tube placement. group home staff was only able to place Stafford catheter at facility. Was able to replace G-tube with 18F here. Confirmed placement with imaging. Patient will be discharged back to facility. D/C in stable condition. Medical Records Attestation: I reviewed the patient's medical records. Imaging Data Attestation: I personally reviewed and interpreted this imaging study as follows: Radiologist's impression: ITS Impressions Abdomen X-Ray 07/27/24 11:08 Impression: Gastrostomy tube intraluminal in location. No extravasation of contrast seen. Discharge Plan Discharge Clinical Impression: Malfunction of gastrostomy tube Patient Disposition: NH Nursing Home/Asst Living Condition: Stable Instructions: Antibiotic Form, How to Use and Care for Your PEG Tube (DC) Additional Instructions: Patient's G-tube was replaced in the ED and confirmed with imaging. Prescriptions: No Action glycopyrrolate 1 mg tablet 1 mg feeding tube TID furosemide 40 mg tablet 40 mg PO DAILY cetirizine 10 mg Tablet 10 mg PO DAILY sucralfate 1 gram tablet 1 g feeding tube BID melatonin 3 mg Tablet 3 mg feeding tube HS PRN (Reason: Insomnia) clopidogrel 75 mg tablet 75 mg feeding tube DAILY spironolactone 25 mg tablet 25 mg PO DAILY baclofen 10 mg tablet 10 mg PO BID PRN (Reason: Spasms) diphenhydramine HCl [Benadryl] 25 mg Capsule 25 mg PO HS PRN (Reason: Insomnia) fluoxetine 20 mg tablet 20 mg feeding tube DAILY aspirin 81 mg Tablet,Chewable 81 mg PO DAILY benazepril 20 mg tablet 20 mg PO DAILY Rx Instructions: G tube gabapentin 100 mg capsule 100 mg feeding tube TID scopolamine base 1 mg over 3 days patch 3 day 1 mg transdermal DAILY enoxaparin 40 mg/0.4 mL syringe 40 mg subcut DAILY lactulose 10 gram/15 mL solution 10 g feeding tube DAILY pantoprazole [address] for susp in packet 40 mg PO DAILY atorvastatin 40 mg tablet 80 mg PO DAILY Rx Instructions: g tube acetaminophen 325 mg Tablet 650 mg feeding tube PRN PRN (Reason: Pain) oxacillin 2 gram Recon Soln 12 g IV Q24H 10 Days Qty: 1 0RF ciprofloxacin HCl 500 mg tablet 500 mg feeding tube Q12H Qty: 14 0RF metronidazole 500 mg tablet 500 mg feeding tube Q8H Qty: 21 0RF docusate sodium [Colace] 100 mg capsule 100 mg PO DAILY Qty: 10 0RF amlodipine 10 mg tablet 10 mg PO DAILY Qty: 90 3RF Rx Instructions: g tube Follow-up/Referrals: Danielle,MD Sami [Primary Care Provider] - Time of Disposition: 11:02
--- NOTE | 2024-07-27 10:39 | PC.NURSE ---
Spoke with Don, they state pt needs gtube placement confirmation and if we are able to place a gtube that would be better. Melly VALVERDE aware.
== END 2024-07-27 12:40 ==
PROVIDERS: Emergency Provider Physician Assistant; PCP Internal Medicine
DX: Z43.1 Encounter for attention to gastrostomy (principal); I10 Essential (primary) hypertension; E78.5 Hyperlipidemia, unspecified; E78.2 Mixed hyperlipidemia; E55.9 Vitamin D deficiency, unspecified; D50.9 Iron deficiency anemia, unspecified; Z85.46 Personal history of malignant neoplasm of prostate; Z86.73 Personal history of transient ischemic attack (TIA), and cerebral infarction without residual deficits; Z92.3 Personal history of irradiation; Z79.82 Long term (current) use of aspirin; Z79.899 Other long term (current) drug therapy
CPT/HCPCS: 43762; 99283

== ENCOUNTER 2025-07-20 08:20 | Emergency (ER) | payer MEDICARE, BC, SELFPAY ==
--- OUTSIDE RECORDS SUMMARY | 2025-07-11 03:17 | XMS_ITS | Continuity of Care Document ---
Author Organization [facility] Plan Address [address] [place] [address] Phone Care Team Providers Care Information Management Officer Name Role Phone Jean Ferrari MD Unavailable Unavailable Allergies, Adverse Reactions, Alerts Substance Reaction Status Criticality No Known Drug Allergies Active No I nformation Medications Medication Instructions Dosage Effective Dates (start - stop) Status Comments valacyclovir 1 gram tablet take 1 tablet by oral route every 12 hours for 7 days for flare up - Active Crestor 40 mg tablet take 1 tablet by oral route every day for cholesterol - Active hydrochlorothiazide 25 mg tablet take 1 tablet by oral route every day 25 MG - Active benazepril 40 mg tablet take 1 tablet by oral route every day 40 MG - Active cyclobenzaprine 5 mg tablet take 1 tablet by oral route every bedtime as needed for muscle tightness as needed 5 MG - Active valacyclovir 1 gram tablet take 1 tablet by oral route every 12 hours for 7 days for flare up - No Longer Active Procedures Procedure Date Retinal Exam w/o Retinopathy Determ Refractive State Ophth Serv Med Exam Comp Est Office o/p est low 20-29 min Subsequent Annual Wellness Visit 2024 Office o/p est low 20-29 min Office o/p est mod 30-39 min Determ Refractive State Ophth Serv Med Exam Comp New Retinal Exam w/o Retinopathy Determ Refractive State Ophth Serv Med Exam Comp New Ophth Serv Med Exam Comp New Determ Refractive State Ophth Serv Med Exam Comp Est Ophth Serv Med Exam Comp Est Cv Stress Tst W/pharm; Intrpt 6 Advance Directives Directive Yes / No Effective Date File Name No Information Encounters Encounter Description Practice Location Reason(s) For Visit Diagnoses Date Provider Providers Copied on Encounter Psychiatric, [address] [place] [address], [id number], tel:[phone] [facility] [employer] No Information 5 Vega Pena. [address], [address], [place]. tel:[phone], [facility], tel:[phone] [facility] routine exam (chief complaint) Age-related nuclear cataract, bilateralCry stalline deposits in vitreous body, bilateral May-0 5 Nikki Macias. Psychiatric, [address] [place] [address], [id number], [place]. tel:[phone] Referring Provider: Colleen Jordan OD N, [address], [address]. tel:[phone], [address], [place] tel:[phone] [facility] [employer] No Information 5 Vega Pena. [address], [facility], [place]. tel:[phone] Office o/p est low 20-29 min Psychiatric, [address] [place] [address], [id number], [place] tel:[phone] [facility] YOOSE Aging Follow Up of Prediabetes (chief complaint)hy pertension (chief complaint)Hy perlipidemia (chief complaint)Ot her (chief complaint) PrediabetesM alignant neoplasm of prostateBody mass index [BMI] 27.0-27.9, adult Feb- 5 Vega Pena. Psychiatric, [address] [place] [address], [facility], [place]. tel:[phone] Referring Provider: Jean Chong, [address], [facility]. tel:[phone] Psychiatric, [address] [place] [address], [facility], [place] tel:[phone] [facility] YOOSE Aging No Information 5 Vega Pena. Psychiatric, [address] [place] [address], [facility], [place]. tel:[phone] Psychiatric, [address] [place] [address], [facility], [place] tel:[phone] [facility] [email or web address] No Information 5 Vega Pena. Psychiatric, [address] [place] [address], [facility], [place]. tel:[phone] Psychiatric, [address] [place] [address], [facility], [place] tel:[phone] [facility] [employer] No Information 5 Vega Pena. Psychiatric, [address] [place] [address], [facility], [place]. tel:[phone] Psychiatric, [address] [place] [address], [address], [place] tel:[phone] [facility] Healthy Aging medicare preventive (chief complaint)Pr ediabetes (chief complaint)El evated PSA (chief complaint) Medicare annual wellness visit, subsequentPr ediabetesExc essive cerumen in both ear canalsElevat ed PSABody mass index [BMI] 28.0-28.9, adult 5 Vega Pena. [address], [facility], [place]. tel:[phone] Referring Provider: Jean Chong, [address], [facility]. tel:[phone] Psychiatric, [address] [place] [address], [facility], [place] tel:[phone] [facility] Healthy Aging Essential (primary) hypertension 5 Vega Pena. [address], [facility], [place]. tel:[phone] Office o/p est low 20-[address], [facility], [place] tel:[phone] [facility] Ear discomfort (chief complaint)Ne ck stiffness (chief complaint) Excessive cerumen in both ear canalsNeck pain on left sideBody mass index [BMI] 29.0-29.9, adult 5 Vega Pena. Psychiatric, [address] [place] [address], [facility], [place]. tel:[phone] Referring Provider: Jean Chong, [address], [facility]. tel:[phone], [facility], [place] tel:[phone] [facility] Healthy Aging Elevated PSA 5 Vega Pena. [address], [facility], [place]. tel:[phone] Office o/p est mod 30-[address], [facility], [place] tel:[phone] [facility] FVC (chief complaint)hy pertension (chief complaint)Ce ruminosis (chief complaint) Essential (primary) hypertension Hypercholest eremiaVitami n D deficiencyPr ediabetesED (erectile dysfunction) of organic originExcess beverly cerumen in both ear canalsBody mass index [BMI] 30.0-30.9, adult Terrance-0 3- 5 Vega Pena. [address], [facility], . tel:[phone] Referring Provider: Jean Chong, [address], [facility]. tel:[phone], [facility], tel:[phone] Health Education No Information Sep-0 5 Arun Auguste. Psychiatric, [address] [place] [address], [facility], [place]. tel:[phone], [facility], tel:[phone] [facility] No Information May-2 4 Arun Auguste. [address], [facility], . tel:[phone], [facility], tel:[phone] [facility] blurry vision (chief complaint) Age-related nuclear cataract, bilateral Feb- 3 Nikki Macias. Psychiatric, [address] [place] [address], [id number], [place]. tel:[phone] Referring Provider: Colleen Alvarado, [address], [address]. tel:[phone], [facility], [place] tel:[phone] [facility] decreased vision (chief complaint) Age-related nuclear cataract, bilateral 2-201 9 Nikki OD Colleen. Psychiatric, [address] [place] [address], [id number], . tel:[phone] Referring Provider: Colleen Nikki OD N, [address], [address]. tel:[phone] Psych[facility], [address] [place] [address], [facility], [place] tel:[phone] [facility] Crystal Deposit VitreousCrys flex Deposit VitreousAge Related Cataract 6- 4 [place] OD Colleen. Psychiatric, [address] [place] [address], [id number], [place]. tel:[phone] [facility], [address] [place] [address], [facility], tel:[phone] [facility] No Information -201 0 No Information Psychiatric, [address] [place] [address], [facility], tel:[phone] [facility] No Information 1200 8 No Information Psychiatric, [address] [place] [address], [facility], tel:[phone] [facility] No Information 8200 6 Farhan Perkins. [address], [place], [facility], [place]. tel:[phone] [facility], [address] [place] [address], [facility], tel:[phone] [facility] No Information 1200 5 No Information Family History Family Member Type Diagnosis Age At Onset Mother Problem (finding) HBP Immunizations Vaccine Date Status Comments FLU HIDOSE TRI administered Source: Other Registry TDAP administered Source: Other R egistry COVID [employer] (12Y+) administered Source: Other Registry COVID PFIZER (12Y+) administered Source: Other Registry FLUAD QUAD administered Source: Other R egistry COVID-19 PFR BV (12Y+) administered Sourc e: Other Registry PPSV23 administered Source: Other R egistry ZOSTER (SHINGRIX) administered Source: Ot her Registry COVID-19 MODERNA(12Y+) administered Sourc e: Other Registry PCV13 administered Source: Other R egistry COVID-19 MODERNA(12Y+) administered Sourc e: Other Registry COVID-19 MODERNA(12Y+) administered Sourc e: Other Registry COVID-19 MODERNA(12Y+) administered Sourc e: Other Registry ZOSTER (SHINGRIX) administered Source: Ot her Registry TDAP administered Source: Other R egistry TD administered Source: Other R egistry Payers Payer name Insurance type Covered constitution party ID Authorangel lee(s) JAYA [employer]F [employer] [id number] Social History Type Description Quantity Date Captured Comments Sex Male Smoking Status No Information Chief Complaint And Reason For Visit No Information Reason For Referral Reason For Referral No Information Plan Of Treatment Date Type Action Status Goal Medicare Prevent beverly Visit. Due on due Goal Lipid panel. Due on [address]-Colonography. Due on due Goal Td vaccine. Due on 34 due Goal Hep C Ab (Hepati tis C Ab). Due on due Goal Zoster vaccine (2nd) due Goal FIT. Due on due Goal Sigmoidoscopy. Due on due Goal Alcohol Misuse S creening. Due on due Goal Pneumovax 23 due Goal Pneumococcal vaccine due Goal Unhealthy drug u se screening. Due on due Goal Diabetes Screeni ng (BMI 25 and above) - HgbA1C. Due on due Goal Colonoscopy. Due on due Goal Zoster vaccine (1st) due Goal Influenza vaccine. Due on Oc due Goal Blood Pressure S creening (Annual). Due on due Goal FOBT. Due on due Goal Prevnar 13 due Goal Depression screening. Due on due Goal FIT-DNA. Due on due Goal Hepatitis C screening. Due o n due Goal Abdominal ultrasound. Due on due Goal Tdap due Goal Unhealthy drug u se screening. Due on due Goal Tdap due Goal Zoster vaccine (1st) due Goal Diabetes Screeni ng (BMI 25 and above) - HgbA1C. Due on due Goal CT-Colonography. Due on due Goal Zoster vaccine (2nd) due Goal Medicare Prevent beverly Visit. Due on due Goal Abdominal ultrasound. Due on due Goal FOBT. Due on due Goal Alcohol Misuse S creening. Due on due Goal Blood Pressure S creening (Annual). Due on due Goal FIT. Due on due Goal FIT-DNA. Due on due Goal Hep C Ab (Hepati tis C Ab). Due on due Goal Pneumovax 23 due Goal Influenza vaccine. Due on Oc due Goal Sigmoidoscopy. Due on due Goal Colonoscopy. Due on 025 due Goal Hepatitis C screening. Due o n due Goal Pneumococcal vaccine due Goal Prevnar 13 due Goal Td vaccine. Due on 34 due Goal Lipid panel. Due on 030 due Goal Depression screening. Due on due Goal Medicare Prevent beverly Visit. Due on due Goal Td vaccine. Due on 34 due Goal Hep C Ab (Hepati tis C Ab). Due on due Goal CT-Colonography. Due on due Goal FIT-DNA. Due on due Goal Unhealthy drug u se screening. Due on due Goal Zoster vaccine (2nd) due Goal Prevnar 13 due Goal Zoster vaccine (1st) due Goal Pneumococcal vaccine due Goal Depression screening. Due on due Goal Diabetes Screeni ng (BMI 25 and above) - HgbA1C. Due on due Goal FIT. Due on due Goal Tdap due Goal Alcohol Misuse S creening. Due on due Goal Blood Pressure S creening (Annual). Due on due Goal Sigmoidoscopy. Due on due Goal Pneumovax 23 due Goal Abdominal ultrasound. Due on due Goal Colonoscopy. Due on 025 due Goal FOBT. Due on due Goal Influenza vaccine. Due on due Goal Lipid panel. Due on 030 due Goal Hepatitis C screening. Due o n due Goal Zoster vaccine () due Goal Depression screening. Due on due Goal Abdominal ultrasound. Due on due Goal CT-Colonography. Due on due Goal FIT-DNA. Due on due Goal Zoster vaccine (1st) due Goal Diabetes Screeni ng (BMI 25 and above) - HgbA1C. Due on due Goal Hep C Ab (Hepati tis C Ab). Due on due Goal Unhealthy drug u se screening. Due on due Goal Colonoscopy. Due on 025 due Goal Prevnar 13 due Goal Tdap due Goal Hepatitis C screening. Due o n due Goal Lipid panel. Due on 030 due Goal Alcohol Misuse S creening. Due on due Goal FIT. Due on due Goal FOBT. Due on due Goal Td vaccine. Due on 34 due Goal Pneumococcal vaccine due Goal Blood Pressure S creening (Annual). Due on due Goal Sigmoidoscopy. Due on due Goal Influenza vaccine. Due on Oc due Goal Pneumovax 23 due Goal Prevnar 13 due Goal Zoster vaccine () due Goal Colonoscopy. Due on due Goal Influenza vaccine. Due on Oc due Goal Depression screening. Due on due Goal Td vaccine. Due on 34 due Goal Abdominal ultrasound. Due on due Goal FOBT. Due on due Goal Zoster vaccine () due Goal FIT-DNA. Due on due Goal CT-Colonography. Due on due Goal Pneumovax 23 due Goal Sigmoidoscopy. Due on due Goal Tdap due Goal Pneumococcal vaccine due Goal Blood Pressure S creening (Annual). Due on due Goal FIT. Due on due Goal Hepatitis C screening. Due o n due Goal Diabetes Screeni ng (BMI 25 and above) - HgbA1C. Due on due Goal Hep C Ab (Hepati tis C Ab). Due on due Goal Unhealthy drug u se screening. Due on due Goal Alcohol Misuse S creening. Due on due Goal Unhealthy drug u se screening. Due on due Goal Hepatitis C screening. Due o n due Goal FIT-DNA. Due on due Goal FIT. Due on due Goal CT-Colonography. Due on due Goal Pneumovax 23. Due on 2022 due Goal Prevnar 13. Due on due Goal Colonoscopy. Due on 023 due Goal Influenza vaccine. Due on due Goal Abdominal ultrasound. Due on due Goal Lipid panel. Due on 023 due Goal Pneumococcal vaccine. Due on due Goal Zoster vaccine. Due on due Goal FOBT. Due on due Goal Blood Pressure S creening (Annual). Due on due Goal Hep C Ab (Hepati tis C Ab). Due on due Goal Tdap. Due on due Goal Diabetes Screeni ng (BMI 25 and above) - HgbA1C. Due on due Goal Depression screening. Due on due Goal Alcohol Misuse S creening. Due on due Goal Td vaccine. Due on due Goal Sigmoidoscopy. Due on due Goal Zoster vaccine (). Due on due Goal Zoster vaccine (). Due on due Goal Colonoscopy. Due on 012 due Goal Influenza vaccine. Due on due Goal Lipid panel. Due on 019 due Goal HIV Screen. Due on 19 due Goal Zoster vaccine. Due on due Goal FOBT. Due on due Goal Blood Pressure S creening (Annual). Due on due Goal Hep C Ab (Hepati tis C Ab). Due on due Goal Tdap. Due on due Goal Diabetes Screeni ng (BMI 25 and above) - HgbA1C. Due on due Goal Depression screening. Due on due Goal Alcohol Misuse S creening. Due on due Goal Td vaccine. Due on 19 due Goal Sigmoidoscopy. Due on due Referral Referred To: Bassam Young MD [address] [place] [address], [id number] [phone] Ordered: Referrals: Bassam Young MD. Evaluate and treat ordered Appointment [facility]OOKED Appointment [facility] BOOKED Appointment [facility] BOOKED Future Order: Lab Order Comp. Me tabolic Panel (14) ([id number]), Sent on: Sent Future Order: Lab Order Hemoglob in A1c ([id number]), Sent on: Sent History Of Present Illness Encounter Date Complaint History Of Prese nt Illness routine exam The 69 year old Patient presents for a routine exam in the right eye and left eye. It started about year(s) ago. It occurs all the time. The onset was gradual. It affects OU.KATI 03/16/25Patient states they have noticed a decline in their distance vision and nearNo other complaints Follow Up of Prediabetes Patient reports he has been working on his diet and intake. 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 He has lost at least 10 lbs since last seen. The labs show improved A1c from 6.4 to 5.9. Hyperlipidemia The client is ad kumar to medication, follow-up and diet for their hyperlipidemia. The client is not adhering to exercise for their hyperlipidemia. Associated symptoms include joint pain. Pertinent negatives include chest pain, dyspnea, myalgia, palpitations. Other He is awaiting s cheduling to commence radiation therapy for prostate cancer and wanted my input on what to anticipate. hypertension Risk factors inc lude race, age over age 60 and male gender. Associated symptoms include visual disturbances. Pertinent negatives include chest pain, dyspnea, headache and irregular heartbeat/palpitations. medicare preventive The client h as not felt depressed and has had interest and pleasure doing things recently. Client does not take calcium. Client reports not taking Vitamin D. Client reports taking a multivitamin. Client does not take folic acid. Relevant history is positive for alcohol use. Client is a former tobacco user. Elevated PSA The client's mos t recent PSA was 6.0 ng/mL taken on 11/06/2024. Pertinent history includes age over 50. Pertinent negatives include back pain, dysuria, hematuria, incomplete emptying, urinary incontinence, pelvic pain, slow stream, splitting stream and urinary dribbling. Additional information: He will have a prostate biopsy 12/04/[address] Dang ([facility]). Prediabetes His recent labs sowed persistent A1c elevation, now at 6.4. He and his have reportedly been working on diet but he is not consistent and not exercising. Neck stiffness Onset: gradual. The severity of the problem is moderate. The problem has not changed. The frequency of pain is constant. Location of pain is left lateral neck. The client describes the pain as Aching. Pertinent negatives include weight loss. Additional information: He woke up with the symptoms on this day and having trouble flexing and rotating the neck to the left. Ear discomfort Onset: 2 weeks a go. The patient states the ear discomfort is in both ears. Context: Wax build up. Additional information: Patient has being using debrox for 1 week. He comes in to have ears re-checked and irrigated. FVC Here to judd yang.Hx: hip replacement x 2. Being followed by Dr. Rabago at [facility]. hypertension It is currently stable. Risk factors include race, age over age 60 and male gender. There are no associated symptoms. Ceruminosis The symptoms beg an 2 weeks ago. The symptoms are reported as being moderate. The symptoms occur constantly. The client states the symptoms are acute. He has a history of ear wax accumulation and need for ear irrigation. He has tried some home remedies but not successful blurry vision The 67 year old patient presents for evaluation of blurry vision in the right eye and left eye. Patient states he has noticed a decrease in both his near and distance vision while wearing his current SRX. It started about 6 month(s) ago. The symptom is constant. The condition is mild. Patient is not diabetic. Patient does not use nay eye drops at this time. Patient's KATI 04/21/19Patient also states OU has been watering for the last couple of weeks. decreased vision The 63 year old male presents for a comprehensive eye exam along with an evaluation of decreased vision in the right eye and left eye. It started about 1 year(s) ago. It occurs all the time. The onset was progressive. It affects both near and far vision. The symptom is constant. The condition is worsening. Patient states he has noticed a decline in his vision and needs new glasses (glasses broken, using old pair) Functional Status Date Functional Assessmen t No Information Instructions Date Instruction Additional Infor mation Return in 1 year for Adult Exam with Dr. Jordan Related to Age-related nuclear cataract, bilateral Return in 1 year for Adult Exam with Dr. 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 He will provide a copy of his Advance Directives Related to Medicare annual wellness visit, subsequent Reinforced diet and exercise. Given a handout on what to eat when diagnoses with Prediabetes Related to Prediabetes Recommended heat, ma ssage and to sleep without a pillow the next 1-2 nights. Rx for Cyclobenzaprine fr PRN bedtime use Related to Neck pain on left side Instructed to instil l Debrox x 5-7 days then to return for ear irrigation. Related to Excessive cerumen in both ear canals Continue supplement Related to V itamin D deficiency Reinforced low fat/c holesterol diet and medication compliance. Labs SHAMIR Related to Hypercholesteremia Continue medications . Reinforced low salt diet, regular exercise, stress reduction, adequate sleep. Related to Essential (primary) hypertension Return in 1 year for Adult Exam with Dr. Jordan Related to Age-related nuclear cataract, bilateral Impression/Plan Related to Age-r elated nuclear cataract, bilateral Return in 1 year for Adult Exam with Dr. Jordan Related to Age-related nuclear cataract, bilateral Impression/Plan Related to Age-r elated nuclear cataract, bilateral [place] Vitr eous OS - Continue to monitor Related to [place] Vitreous Age Related Cataract OU - New glasses prescribed for patient Stressed adaptation to new glasses prescription Related to Age Related Cataract - Return in 2 years for Adult Exam with Dr. 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
--- NOTE | ~2025-07-20 | CT_ITS ---
Exam: CT abdomen and pelvis with contrast Clinical History: [Abdominal pain. Constipation. ] Comparison: [ CT abdomen and pelvis 08/09/2023] Technique: Multiple axial CT images of the abdomen and pelvis were obtained with IV contrast. Sagittal and coronal reformatted images were obtained. FINDINGS: Lung bases: [Small patchy opacities in the mid and lower lungs. ] Liver: [ No mass.] [ No intrahepatic biliary duct dilatation.] Gallbladder: [ No wall thickening or stones.] Common bile duct: [ Normal caliber.] [ No stones.] Spleen: [ Within normal limits.] Pancreas: [ No mass. No pancreatic fluid collection.] Adrenals: [ No masses.] Kidneys: [ No masses. No hydronephrosis.][ ] Lymph nodes: [ No adenopathy in the abdomen or pelvis.] Stomach, small bowel and colon: There is a G-tube. Large amount of stool. Concentric thickening of the ferguson of the rectum. Differential includes incomplete rectal wall distention, proctitis or mass. Peritoneum cavity: [ No mesenteric fat stranding or fluid.] Bladder: [ Unremarkable.] Osseous structures: [ No acute fracture or destructive lesion.] [ Multilevel degenerative change in the visualized spine.] Abdominal aorta: [ No aneurysm.] Additional findings: Small fat-containing umbilical hernia. This study is slightly limited due to motion artifact. IMPRESSION: 1. Concentric thickening of the ferguson of the rectum. Differential includes incomplete rectal wall distention, proctitis or mass. 2. Large amount of stool. 3. There is a G-tube in place. Reviewed, dictated and finalized at location Q. IMPRESSION: 1. Concentric thickening of the ferguson of the rectum. Differential includes inco mplete rectal wall distention, proctitis or mass. 2. Large amount of stool. 3. There is a G-tube in place.
--- NOTE | ~2025-07-20 | XR_ITS ---
Examination: XR chest 1V portable Clinical History: cough Comparison: None available Technique: Portable AP Findings: Heart size normal. Lungs clear. No acute bony abnormality. IMPRESSION: 1. No acute cardiopulmonary findings given portable technique. Can consider PA and lateral films with deep inspiration. Reviewed, dictated and finalized at location R.
[2025-07-20 08:21] VITALS: BP 115/89; PULSE 69; RESP 19; TEMP 37.2; O2SAT 98
[2025-07-20 09:27] LABS: Hematocrit 40.2 % (42.0-52.0); Hemoglobin 12.6 g/dL (14.0-18.0); Immature Granulocyte Percent A 0.4 % (0-0.5); Lymphocytes Absolute Auto 2.70 K/mm3 (0.9-3.2); Mean Corpuscular HGB Conc 31.3 g/dl (32-36); Mean Corpuscular Hemoglobin 27.0 pg (26-34); Mean Corpuscular Volume 86.1 fl (80-100); Nucleated Red Blood Cells Absolute Auto 0.000 K/mm3 (0.0-0.012); Nucleated Red Blood Cells Perc 0.0 % (0.0-0.2); Platelet Count Result 257 k/mm3 (150-375); Red Blood Count 4.67 M/mm3 (4.6-6.20); White Blood Count 11.3 K/mm3 (4.5-10.0)
--- NOTE | 2025-07-20 09:45 | ED.RECABL ---
HPI - Recheck/Abnormal Lab/Rx General Chief Complaint: Recheck/Abnormal Lab/Rx Stated Complaint: Elevated WBC Time Seen by Provider: 07/20/25 08:39 Source: family Mode of arrival: EMS Limitations: clinical condition History of Present Illness HPI narrative: This is a 69-year-old male with history of hypertension, hyperlipidemia, prior CVA, CKD who presents to the ED via EMS from long-term for altered labs. In per EMS, patient was found to have an elevated white blood cell count and there is no obvious source they sent him in for further evaluation. Family at bedside states that patient has had difficulty with bowel movements for the past few days despite his bowel regimen including milk of magnesia,, suppositories, GoLYTELY. Her last regular bowel movement was several days ago. He is G-tube dependent. Related Data Home Medications ?Medication ?Instructions ?Recorded ?Confirmed ?Last Taken ?Type aspirin 81 mg chewable tablet 81 mg PO DAILY 12/14/22 12/14/22 Unknown History atorvastatin 40 mg tablet 80 mg PO DAILY 12/14/22 12/14/22 Unknown History baclofen 10 mg tablet 10 mg PO BID PRN Spasms 12/14/22 12/14/22 Unknown History benazepril 20 mg tablet 20 mg PO DAILY 12/14/22 12/14/22 Unknown History cetirizine 10 mg tablet 10 mg PO DAILY 12/14/22 12/14/22 Unknown History clopidogrel 75 mg tablet 75 mg feeding tube DAILY 12/14/22 12/14/22 Unknown History diphenhydramine HCl 25 mg capsule 25 mg PO HS PRN Insomnia 12/14/22 12/14/22 Unknown History (Benadryl) enoxaparin 40 mg/0.4 mL 40 mg subcut DAILY 12/14/22 12/14/22 Unknown History subcutaneous syringe fluoxetine 20 mg tablet 20 mg feeding tube DAILY 12/14/22 12/14/22 Unknown History furosemide 40 mg tablet 40 mg PO DAILY 12/14/22 12/14/22 Unknown History gabapentin 100 mg capsule 100 mg feeding tube TID 12/14/22 12/14/22 Unknown History glycopyrrolate 1 mg tablet 1 mg feeding tube TID 12/14/22 12/14/22 Unknown History lactulose 10 gram/15 mL oral 10 g feeding tube DAILY 12/14/22 12/14/22 Unknown History solution melatonin 3 mg tablet 3 mg feeding tube HS PRN Insomnia 12/14/22 12/14/22 Unknown History pantoprazole 40 mg granules 40 mg PO DAILY 12/14/22 12/14/22 Unknown History delayed-release for susp in packet scopolamine base 1 mg over 3 days 1 mg transdermal DAILY 12/14/22 12/14/22 Unknown History transdermal patch spironolactone 25 mg tablet 25 mg PO DAILY 12/14/22 12/14/22 Unknown History sucralfate 1 gram tablet 1 g feeding tube BID 12/14/22 12/14/22 Unknown History acetaminophen 325 mg tablet 650 mg feeding tube PRN PRN Pain 12/15/22 12/15/22 Unknown History Allergies Allergy/AdvReac Type Severity Reaction Status Date / Time clonidine Allergy Intermediate hives Verified 07/20/25 08:34 Review of Systems Review of Systems: ROS unobtainable: Yes unobtainable due to medical condition PMFSH Past Medical History Medical History 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 Mixed hyperlipidemia Insomnia Essential (primary) hypertension Hyperlipidemia Hypertension CVA (cerebral vascular accident) Surgical History Surgical History History of gastrostomy tube placement Gastrointestinal tube present Family History Family History Mother Dementia Father Cerebrovascular accident Social History Social History Social History: Surrogate medical decision maker: Christelle Jones, . Code status: Full code. Smoking status: Never smoker Alcohol intake: never Substance use: never Lack of Transportation: No Lack of Food: Never True Current Housing: I Have Housing Concerned About Future Housing: No Difficulty Paying Gas/Electric Bills: No Difficulty Paying for Meds: No Currently Unemployed: No Education: High School Diploma/GED Difficulty w/ Childcare or Family Care: No Spiritual care concerns: No Exam Narrative: APPEARANCE: Chronically ill-appearing, nontoxic, no acute distress EYES: EOMI HEENT: Normocephalic, atraumatic, OMM RESPIRATORY: No respiratory distress Clear to auscultation bilaterally with no rhonchi wheezing or rales. CARDIOVASCULAR: Regular rate and rhythm without murmurs rubs or gallops. ABDOMINAL: Soft, firm to palpation throughout, minimally tender, no peritoneal signs. G-tube in left upper abdomen MUSCULOSKELETAl: Moves all extremities. No clubbing, cyanosis or edema. NEURO: Awake and alert, aphasic speech, unable to answer questions appropriately SKIN:: Warm, dry. No rashes lesions or abrasions PSYCHIATRIC: Normal affect/mood, Course Vital Signs Vital signs: Vital Signs Temperature 98.9 F 07/20/25 08:21 Pulse Rate 69 07/20/25 08:21 Respiratory Rate 19 07/20/25 08:21 Blood Pressure 115/89 07/20/25 08:21 Pulse Oximetry 98 07/20/25 08:21 Oxygen Delivery Room Air 07/20/25 08:21 Temperature 98.9 F 07/20/25 08:21 Pulse Rate 69 07/20/25 08:21 Respiratory Rate 19 07/20/25 08:21 Blood Pressure 115/89 07/20/25 08:21 Pulse Oximetry 98 07/20/25 08:21 Oxygen Delivery Room Air 07/20/25 08:21 MDM - Recheck/Abnormal Lab/Rx MDM Narrative Medical decision making narrative: 69-year-old male presenting for abdominal pain and abnormal labs. On initial evaluation patient was in no acute distress afebrile, hemodynamic stable. Differentials include but are not limited to: Constipation, diverticulitis, impaction, obstruction, cancer Notable exam findings: Diffuse firmness to palpation to the abdomen with minimal tenderness to palpation Notable lab findings: Mild leukocytosis at 11.3. CMP without significant abnormalities. COVID/flu/RSV negative. Notable imaging findings: Chest x-ray showed no acute process. CT abdomen/pelvis showed large stool burden with mild proctitis Patient's symptoms most consistent with severe constipation. Upon attempting a rectal examination, there is already stool in his diaper so a Fleet's enema was performed and patient was able have significant bowel movements. He was deemed appropriate for discharge back to long-term at this time. custodial was advised to continue his aggressive bowel regimen as previously prescribed. Patient and family were agreeable to this plan. Given strict return precautions. Medical Records Attestation: I reviewed the patient's medical records. Lab Data Attestation: I reviewed the patient's lab results. 07/20/25 09:21 07/20/25 09:21 Labs: Lab Results 07/20/25 07/20/25 Range/Units 09:21 09:33 WBC 11.3 H (4.5-10.0) K/mm3 RBC 4.67 (4.6-6.20) M/mm3 Hgb 12.6 L (14.0-18.0) g/dL Hct 40.2 L (42.0-52.0) % MCV 86.1 (80-100) fl MCH 27.0 (26-34) pg MCHC 31.3 L (32-36) g/dl RDW 15.5 H (11.5-14.5) % Plt Count 257 (150-375) k/mm3 MPV 11.2 H (7.4-10.4) fl Immature Gran % (Auto) 0.4 (0-0.5) % Neut % (Auto) 64.3 (45.5-73.1) % Lymph % (Auto) 23.9 (18.3-44.2) % Ponce % (Auto) 8.5 (2.6-8.5) % Eos % (Auto) 2.3 (0-4.4) % Baso % (Auto) 0.6 (0.2-1.2) % Lymph # (Auto) 2.70 (0.9-3.2) K/mm3 Ponce # (Auto) 1.0 H (0.1-0.6) K/mm3 Eos # (Auto) 0.3 (0-0.3) K/mm3 Baso # (Auto) 0.1 (0.0-0.1) K/mm3 Abs Immat Gran (auto) 0.04 H (0.00-0.031) K/mm3 Absolute Neuts (auto) 7.3 H (1.3-6.7) K/mm3 Absolute Nucleated RBC 0.000 (0.0-0.012) K/mm3 Nucleated RBC % 0.0 (0.0-0.2) % Sodium 138 (137-145) mmol/L Potassium 4.3 (3.4-5.0) mmol/L Chloride 99 (98-107) mmol/L Carbon Dioxide 33 H (22-30) mmol/L Anion Gap 6 (4-12) mmol/L BUN 20 (9-20) mg/dL Creatinine 0.70 (0.7-1.3) mg/dL Estim Creat Clear Calc 100 ml/min Estimated GFR > 60 (59 - ) Glucose 93 (65-110) mg/dL Calcium 8.9 (8.4-10.2) mg/dL Total Bilirubin 0.5 (0.2-1.3) mg/dL AST 44 (17-59) U/L ALT 24 (6-50) U/L Alkaline Phosphatase 90 (38-126) U/L Total Protein 8.2 (6.3-8.2) g/dL Albumin 4.2 (3.5-5.1) g/dL Influenza A (RT-PCR) Negative (Negative) Influenza B (RT-PCR) Negative (Negative) RSV (RT-PCR) Negative (Negative) SARS-CoV-2 RNA (RT-PCR) Negative (Negative) Imaging Data Attestation: I personally reviewed and interpreted this imaging study as follows: Radiologist's impression: Impressions Chest X-Ray 07/20/25 08:43 IMPRESSION: 1. No acute cardiopulmonary findings given portable technique. Can consider PA and lateral films with deep inspiration. Abdomen/Pelvis CT 07/20/25 10:10 IMPRESSION: 1. Concentric thickening of the ferguson of the rectum. Differential includes incomplete rectal wall distention, proctitis or mass. 2. Large amount of stool. 3. There is a G-tube in place. Discharge Plan Discharge Clinical Impression: Gastrostomy tube in place Constipation Qualifiers: Constipation type: unspecified constipation type Qualified Code(s): K59.00 - Constipation, unspecified Patient Disposition: Home Condition: Stable Instructions: Antibiotic Form, Constipation (ED) Additional Instructions: Continue aggressive bowel regimen as previously described. Return to the ED for any new or worsening symptoms. Patient Language: Thai Prescriptions: No Action glycopyrrolate 1 mg tablet 1 mg feeding tube TID furosemide 40 mg tablet 40 mg PO DAILY cetirizine 10 mg Tablet 10 mg PO DAILY sucralfate 1 gram tablet 1 g feeding tube BID melatonin 3 mg Tablet 3 mg feeding tube HS PRN (Reason: Insomnia) clopidogrel 75 mg tablet 75 mg feeding tube DAILY spironolactone 25 mg tablet 25 mg PO DAILY baclofen 10 mg tablet 10 mg PO BID PRN (Reason: Spasms) diphenhydramine HCl [Benadryl] 25 mg Capsule 25 mg PO HS PRN (Reason: Insomnia) fluoxetine 20 mg tablet 20 mg feeding tube DAILY aspirin 81 mg Tablet,Chewable 81 mg PO DAILY benazepril 20 mg tablet 20 mg PO DAILY Rx Instructions: G tube gabapentin 100 mg capsule 100 mg feeding tube TID scopolamine base 1 mg over 3 days patch 3 day 1 mg transdermal DAILY enoxaparin 40 mg/0.4 mL syringe 40 mg subcut DAILY lactulose 10 gram/15 mL solution 10 g feeding tube DAILY pantoprazole [address] for susp in packet 40 mg PO DAILY atorvastatin 40 mg tablet 80 mg PO DAILY Rx Instructions: g tube acetaminophen 325 mg Tablet 650 mg feeding tube PRN PRN (Reason: Pain) oxacillin 2 gram Recon Soln 12 g IV Q24H 10 Days Qty: 1 0RF ciprofloxacin HCl 500 mg tablet 500 mg feeding tube Q12H Qty: 14 0RF metronidazole 500 mg tablet 500 mg feeding tube Q8H Qty: 21 0RF docusate sodium [Colace] 100 mg capsule 100 mg PO DAILY Qty: 10 0RF amlodipine 10 mg tablet 10 mg PO DAILY Qty: 90 3RF Rx Instructions: g tube Follow-up/Referrals: Danielle,MD Sami [Primary Care Provider, Unknown]
[2025-07-20 09:54] LABS: Alanine Aminotransferase 24 U/L (6-50); Albumin Level 4.2 g/dL (3.5-5.1); Alkaline Phosphatase 90 U/L (38-126); Anion Gap 6 mmol/L (4-12); Aspartate Amino Transferase 44 U/L (17-59); Bilirubin,Total 0.5 mg/dL (0.2-1.3); Blood Urea Nitrogen 20 mg/dL (9-20); Calcium 8.9 mg/dL (8.4-10.2); Carbon Dioxide 33 mmol/L (22-30); Chloride 99 mmol/L (98-107); Estimated CRCL calculation 100 ml/min; Estimated Glomerular Filt Rate > 60; Glucose 93 mg/dL (65-110); Potassium 4.3 mmol/L (3.4-5.0); Sodium 138 mmol/L (137-145); Total Protein 8.2 g/dL (6.3-8.2)
--- OUTSIDE RECORDS SUMMARY | 2025-07-20 10:01 | XMS_ITS | Clinical Summary ---
Author Organization [facility] Address [address] [place] [place] [address] Care Team Providers Care Account Coordinator Name Role Phone Sami Santos MD Primary Care Provider [phone] Source Comments [facility],non-owned Affiliates and Associated Physician Practices is amultiple site organization consisting of ambulatory clinics and hospital sitesin [place], [place], [place] and [place]. This disclosure is being madepursuant to the Care Everywhere program and may not contain all informatio navailable regarding this patient. Last updated 18.[facility] Allergies Active Allergy Reactions Criticality Noted Date Comments Clonidine Rash Medium 12/19/2021 Medications * Be aware that medications may not be up to date on this document. Alwaysverify current medications with the patient. acetaminophen (TYLENOL) 325 MG tablet 2 (two) tablets by Enteral Tube route every 4 hours as needed for Fever (for temperature greater than 100.4 F / 38 C and CPOT>2) Maximum allowable Acetaminophen amount = 4 Grams (4000 mg) / 24 hours. 2 Active aspirin (ASPIRIN) 81 MG chew tablet 1 (one) tablet by Enteral Tube route once daily 2 Active heparin 5000 UNIT/ML injection Inject 1 mL subcutaneously every 8 hours 2 Active FLUoxetine (PROZAC) 20 MG capsule 1 (one) capsule by Enteral Tube route once daily 2 Active ondansetron (ZOFRAN) 2 MG/ML injection 4 (four) mg by Intravenous route every 6 hours as needed for Nausea/Vomiting 2 Active atorvastatin (LIPITOR) 80 MG tablet 1 (one) tablet by Enteral Tube route once daily 2 Active guaiFENesin (ROBITUSSIN) 100 MG/5ML solution 10 mL by Enteral Tube route every 6 hours as needed for Cough 2 Active senna (SENOKOT EXTRA STRENGTH) 17.2 MG 17.2 mg by Enteral Tube route once daily as needed for Constipation 2 Active clopidogrel (PLAVIX) 75 MG tablet 1 (one) tablet by Enteral Tube route once daily 2 Active artificial tears ophthalmic ointment Instill into both eyes every 8 hours 2 Active baclofen (LIORESAL) 5 MG TABS 1 (one) tablet by Enteral Tube route 2 times daily 2 Active pantoprazole (PROTONIX) 40 MG packet 1 (one) packet by Enteral Tube route once daily 2 Active gabapentin (Neurontin) 100 MG capsule 2 (two) capsules by Per GJ Tube route 2 times daily 2 Active Active Problems Problem Noted Date Diagnosed Date 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 Diaphoresis 12/26/2023 Dislodged gastrostomy tube 12/26/2023 Difficult airway for intubation 12/21/2021 Aphasia 12/19/2021 Dysarthria 12/19/2021 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 12/19/2021 Type 2 diabetes mellitus 12/19/2021 Hyperlipidemia 12/19/2021 Resolved Problems Problem Noted Date Diagnosed Date Resolved Date Pneumonia due to infectious organism 12/20/2021 12/27/2023 Right sided weakness 12/19/2021 024 Acute respiratory failure 12/19/2021 Facial droop 12/19/2021 12/27/2023 Leukocytosis 12/19/2021 12/27/2023 On mechanically assisted ventilation 12/19/2021 12/27/2023 Social History Tobacco Use Types Packs/Day Years Used Date Smoking Tobacco: Never Smokeless Tobacco: Never Tobacco Cessation:Counseling Given: No Alcohol Use Standard Drinks/Week Comments Not Currently 0 (1 standard drink = 0.6 oz pur e alcohol) occ AUDIT-C Answer Date Recorded Q1: How often do you have a drink containing alcohol? Never 12/26/2023 Q2: How many drinks containi ng alcohol do you have on a typical day when you are drinking? Patient does not drink Q3: How often do you have si x or more drinks on one occasion? Never 12/26/2023 PHQ-2 Answer Date Recorded PHQ2 TOTAL SCORE 0 12/26/2021 Hunger Vital Sign Answer Date Recorded Within the past 12 months, y ou worried that your food would run out before you got the money to buy more. Never true 12/20/19 22 Within the past 12 months, t he food you bought just didn't last and you didn't have money to get more. Never true 12/19/2021 Sex and Gender Information Value Date Recorded Sex Assigned at Not on file Legal Sex Male 11:32 PM CDT Gender Identity Not on file Sexual Orientation Not on file Last Filed Vital Signs Vital Sign Reading Time Taken Comments Blood Pressure 116/79 12/28/2023 9:05 PM CDT Pulse 72 12/28/2023 9:05 PM CDT Temperature 37.3 C (99.2 F) 12/28/2023 9:05 PM CDT Respiratory Rate 18 12/28/2023 9:05 PM CDT Oxygen Saturation 99% 12/28/2023 9:05 PM CDT Inhaled Oxygen Concentration 40% 01/07/2022 4 :00 PM CDT Weight 94.8 kg (208 lb 14.4 oz) 12/27/2023 4:00 AM CDT Height 175.3 cm (5' 9) 12/26/2023 7:25 AM CDT Body Mass Index 30.85 12/26/2023 7:25 AM CDT Plan of Treatment Health Maintenance Due Date Last Done Comments COLOGUARD (AGES 45-75) - COLON CA SCREENING 1955 COLON MONITORING 1955 COLONOSCOPY - COLON CA SCREENING 1955 CT COLONOGRAPHY - COLON CA SCREENING 1955 Colorectal Cancer Screening 1955 FIT - COLON CA SCREENING 1955 FLEX SIG - COLON CA SCREENING 1955 MEDICARE AWV 12 MONTHS 1955 HEPATITIS C SCREENING 08/23/1973 DTAP/TDAP/TD VACCINES (1 - Tdap) 1974 PNEUMOCOCCAL VACCINE 50+ (1 of 2 - PCV) 1974 ZOSTER VACCINE (1 of 2) 2005 DIABETES RETINOPATHY SCREENING 12/19/2021 DIABETES-FOOT EXAM WITH MONOFILAMENT 12/19/2021 DIABETES-HGB A1C 06/19/2022 12/18/2021 DEPRESSION SCREENING 09/20/2024 DIABETES - URINE PROTEIN SCREENING 09/20/2024 DIABETES-SERUM CREATININE 12/26/20242023, 12/26/2023, 01/29/2022, Additional history exists COVID-19 VACCINE ( season) 2025 09/03/2022, 09/25/2021, 11/08/2020, Additional history exists INFLUENZA VACCINE (#1) 2025 07/07/2023, 2021 Respiratory Syncytial Virus (RSV) Vaccine Pt: or over 60 yrs (1 - 1-dose 75+ series) 2030 HEPATITIS B VACCINE Aged Out No longe r eligible based on patient's age to complete this topic HIB VACCINE Aged Out No longer eligi ble based on patient's age to complete this topic HPV VACCINE Aged Out No longer eligi ble based on patient's age to complete this topic MENINGOCOCCAL (Group B) VACCINE SHARED DECISION-MAKING Aged Out No longer eligible based on patient's age to complete this topic MENINGOCOCCAL GROUPS A/C/Y/W VACCINE Aged Out No longer eligible based on patient's age to complete this topic Procedures Procedure Name Priority Date/Time Associated Diagnosis Comments BASIC METABOLIC PANEL (CALCIUM TOTAL) Routine 12/27/2023 5:55 AM CDT Dislodged gastrostomy tube HEMOGLOBIN A1C Add on 12/18/2021 11:57 PM CDT from Last 3 Months or Most Recently Relevant to Health Maintenance Results * BASIC METABOLIC PANEL (CALCIUM TOTAL) (12/27/2023 5:55 AM CDT) BUN 15 7 - 26 mg/dL 12/27/2023 7:04 AM CDT [facility] Creatinine 0.78 0.71 - 1.16 mg/dL 12/27/2023 7:04 AM T [facility] Sodium 139 136 - 145 mmol/L 12/27/2023 7:04 AM [facility] Potassium 4.1 3.5 - 4.5 mmol/L 12/27/2023 7:04 AM [facility] Chloride 105 98 - 107 mmol/L 12/27/2023 7:04 AM [facility] CO2 25 22 - 29 mmol/L 12/27/2023 7:04 AM [facility] Glucose 78 70 - 115 mg/dL 12/27/2023 7:04 AM [facility] Calcium 9.2 8.4 - 10.2 mg/dL 12/27/2023 7:04 AM [facility] Anion Gap 9 6 - 16 12/27/2023 7:04 AM [facility] BUN/Creatinine Ratio 19 7 - 23 12/27/2023 7:04 AM [facility] Osmolality Calculated 288 275 - 295 mOsm/kg 12/27/2023 7:04 AM [facility] eGFR by CKD-EPI >90 >=90 mL/min/1.7 3 m2 12/27/2023 7:04 AM [facility] Blood BLOOD SPECIMEN / Unknown Lab Venipuncture / Unknown 12/27/2023 5:55 AM CDT 12/27/2023 6:29 AM [facility] us Jolene Kam MD LAB - CHEMISTRY ORDERABLES F inal Result [facility] [address] [place] [address], [facility] [phone] * (ABNORMAL) HEMOGLOBIN A1C (12/18/2021 11:57 PM T) Hemoglobin A1c 6.2(H) <=5.6 % 12/19/2021 9:49 AM [facility] Estimated Average Glucose 131 mg/dL 12/19/2021 9:49 AM [facility] Comment: HbA1c Interpretation: Normal : < 5.7% Pre-diabetes: 5.7-6.4% Diabetes: Equal to or greater than 6.5% Test results diagnostic of diabetes should be repeated for confirmation. Treatment target values recommended by ADA and other clinical organizations should be used to evaluate metabolic control in patients. Reference: [place] [employer], Standards of Care in Diabetes -2020 In patients 70 years and older consider HbA1c target range of 7.0-7.5% (Reference: Daniel Boles et al. JAMDA. 2012) The Sebia assay for the measurement of HbA1c is a National Glycohemoglobin Standardization Program (NGSP) certified method. Blood BLOOD SPECIMEN / Unknown Venipuncture / Unknown 12/18/2021 11:57 PM CDT 12/19/2021 12:07 AM CDT us Saw Krause MD LAB - CHEMISTRY ORDERABLES F inal Result [facility] [address] [place] [address], [facility] [phone] from Last 3 Months or Most Recently Relevant to Health Maintenance Insurance MEDICARE [employer] [facility] [place] MED[place] - [place] [facility] Advance Directives * Full Code (Latest Code Status on File) Date Activated Date Inactivated Comments 12/26/2023 3:51 PM 12/28/2023 10:44 PM * Full Code Date Activated Date Inactivated Comments 12/19/2021 4:26 AM 01/07/2022 8:25 PM Care Teams Account Coordinator Relationship Specialty Start Date End Date Sami Santos MD [address] [place] [phone] PCP - General Internal Medicine 12/26/23
--- OUTSIDE RECORDS SUMMARY | 2025-07-20 10:01 | XMS_ITS | Encounter Summary ---
Author Organization [facility] Health Address [address] [place] [address] Care Team Providers Care Electric Locomotive Firer/Fireman Name Role Phone Sami Santos MD Primary Care Provider [phone] Encounter Details Date Type Department Care Team (Late st Contact Info) Description 01/20/2022 Lab Requisition [facility] [address] [place] [address] Keyur Muñ[place] [address] [place] [address] Social History Tobacco Use Types Packs/Day Years Used Date Smoking Tobacco: Never Smokeless Tobacco: Never Alcohol Use Standard Drinks/Week Comments Not Currently 0 (1 standard drink = 0.6 oz pur e alcohol) occ AUDIT-C Answer Date Recorded Q1: How often do you have a drink containing alc ohol? Monthly or less 12/19/2021 Average Number of Drinks Not on file 022 Frequency of Binge Drinking Not on file 09/2021 PHQ-2 Answer Date Recorded PHQ2 TOTAL SCORE [...] on file Sexual Orientation Not on file documented as of this encounter Functional Status * Is person deaf or have serious hearing difficulty? Answer Date of Assessment Author No 12/20/2021 3:02 AM Ramana Durant RN * Is person blind or have serious difficulty seeing? Answer Date of Assessment Author No 12/20/2021 3:02 AM Ramana Durant RN * Does person have serious difficulty walking/climbing stairs? Answer Date of Assessment Author No 12/20/2021 3:02 AM Ramana Durant RN * Does person have difficulty dressing/bathing? Answer Date of Assessment Author No 12/20/2021 3:02 AM Ramana Durant RN * Does person have difficulty doing errands alone? Answer Date of Assessment Author No 12/20/2021 3:02 AM Ramana Durant RN documented as of this encounter Mental Status * Does person have difficulty concentrating/remembering/making decisions? Answer Entry Date Author No 12/20/2021 3:02 AM Ramana Durant RN documented in this encounter Plan of Treatment Not on file documented as of this encounter Procedures Procedure Name Priority Date/Time Associated Diagnosis Comments COMPREHENSIVE METABOLIC PANEL STAT 01/20/2022 3:05 AM CDT documented in this encounter Results * (ABNORMAL) COMPREHENSIVE METABOLIC PANEL (01/20/2022 3:05 AM CDT) Glucose 107(H) 70 - 105 mg/dL 01/20/2022 8:20 AM CDT [facility] Sodium 138 136 - 145 mmol/L 01/20/2022 8:20 AM CDT [facility] Potassium 4.9 3.5 - 5.1 mmol/L 01/20/2022 8:20 AM CDT [facility] Chloride 98 98 - 107 mmol/L 01/20/2022 8:20 AM CDT [facility] CO2 29 23 - 31 mmol/L 01/20/2022 8:20 AM CDT [facility] Calcium 9.1 8.4 - 10.4 mg/dL 01/20/2022 8:20 AM CDT [facility] Anion Gap 11 8 - 18 mmol/L 01/20/2022 8:20 AM CDT [facility] BUN 17 8.4 - 25.7 mg/dL 01/20/2022 8:20 AM CDT [facility] Creatinine 0.69(L) 0.72 - 1.25 mg/dL 01/20/2022 8:20 AM CDT [facility] Alkaline Phosphatase 62 40 - 150 U/L 01/20/2022 8:20 AM CDT [facility] ALT 39 0 - 61 U/L 01/20/2022 8:20 AM CDT [facility] AST 30 5 - 34 U/L 01/20/2022 8:20 AM CDT [facility] Protein Total 6.9 6.4 - 8.3 gm/dL 01/20/2022 8:20 AM CDT [facility] Albumin 3.5 3.2 - 4.6 gm/dL 01/20/2022 8:20 AM CDT [facility] Bilirubin Total 0.6 0.2 - 1.2 mg/dL 01/20/2022 8:20 AM CDT [facility] eGFR by CKD-EPI >90 >=90 mL/min/1.7 3 m2 01/20/2022 8:20 AM CDT [facility] Blood BLOOD SPECIMEN / Unknown Venipuncture / Unknown 01/20/2022 3:05 AM CDT 01/20/2022 7:52 AM CDT Narrative [facility] - 01/20/2022 8:20 AM CDT eGFR result was calculated using the updated CKD-EPI Creatinine Equations (2020). Prior to go live 2021 the eGFR was calculated using the MDRD calculation. Please note Reference Range change. us Keyur Muñiz MD LAB - CHEMISTRY ORDERABLES Fi nal Result [facility] [address] [place], [place] [id number] documented in this encounter Visit Diagnoses Not on filedocumented in this encounter Care Teams Electric Locomotive Firer/Fireman Relationship Specialty Start Date End Date Sami Santos MD [address] [place] [address] PCP - General Internal Medicine 12/26/23 documented as of this encounter
--- OUTSIDE RECORDS SUMMARY | 2025-07-20 10:01 | XMS_ITS | Encounter Summary ---
Author Organization [facility] Health Address [address] [facility] [place] [address] Care Team Providers Care Flat Knitter Name Role Phone Sami Santos MD Primary Care Provider [phone] Encounter Details Date Type Department Care Team (Late st Contact Info) Description 01/22/2022 Lab Requisition [facility] [address] [place] [address] Claudio Art MD [address] [place] [address] [address], [place] [id number] Social History Tobacco Use Types Packs/Day Years [...] of Assessment Author No 12/20/2021 3:02 AM CDT Ramana Brady RN * Is person blind or have [...] Procedure Name Priority Date/Time Associated Diagnosis Comments CBC W AUTO DIFFERENTIAL STAT 01/22/2022 4:20 AM CDT COMPREHENSIVE METABOLIC PANEL STAT 01/22/2022 4:20 AM CDT documented in this encounter Results * (ABNORMAL) CBC WITH DIFFERENTIAL (01/22/2022 4:20 AM CDT) [facility] WBC 12.7(H) 4.4 - 10.7 x10E9/L 01/22/2022 10:33 AM CDT [facility] WBC Corrected 01/22/2022 10:33 AM CDT [facility] RBC 4.59 3.80 - 5.40 x10E12/L 01/22/2022 10:33 AM CDT [facility] Hemoglobin 12.5 12.0 - 17.6 gm/dL 01/22/2022 10:33 AM CDT [facility] Hematocrit 40.7 35.2 - 51.7 % 01/22/2022 10:33 AM CDT [facility] MCV 88.7 80.7 - 98.3 fl 01/22/2022 10:33 AM [facility] MCH 27.2 26.7 - 34.0 pg 01/22/2022 10:33 AM [facility] MCHC 30.7(L) 30.8 - 35.9 gm/dL 01/22/2022 10:33 AM [facility] Platelet Count 279 153 - 416 x10E9/L 01/22/2022 10:33 AM [facility] RDW-CV 15.9(H) 12.1 - 14.9 % 01/22/2022 10:33 AM [facility] MPV 11.8 9.4 - 12.9 fl 01/22/2022 10:33 AM [facility] Neutrophils % 73.0 44.0 - 73.0 % 01/22/2022 10:33 AM [facility] Lymphocytes % 16.8(L) 20.0 - 43.0 % 01/22/2022 10:33 AM [facility] Monocytes % 6.5 5.0 - 13.0 % 01/22/2022 10:33 AM [facility] Eosinophils % 1.6 0.0 - 6.0 % 01/22/2022 10:33 AM [facility] Basophils % 0.6 0.0 - 2.0 % 01/22/2022 10:33 AM [facility] Immature Granulocytes 1.5(H) 0 - 1 % 01/22/2022 10:33 AM [facility] Neutrophil Absolute 9.25(H) 2.01 - 7.14 x10E9/L 01/22/2022 10:33 AM [facility] Lymphocytes Absolute 2.13 1.07 - 3.94 x10E9/L 01/22/2022 10:33 AM [facility] Monocytes Absolute 0.83 0.26 - 1.07 x10E9/L 01/22/2022 10:33 AM [facility] Eosinophils Absolute 0.20 0 - 0.47 x10E9/L 01/22/2022 10:33 AM [facility] Basophils Absolute 0.08 0 - 0.08 x10E9/L 01/22/2022 10:33 AM [facility] Immature Granulocytes Absolute 0.19(H) 0.00 - 0.06 x10E9/L 01/22/2022 10:33 AM [facility] n[facility] Auto 0 /100 WBC 01/22/2022 10:33 AM [facility] Blood BLOOD SPECIMEN / Unknown Venipuncture / Unknown 01/22/2022 4:20 AM CDT 01/22/2022 9:57 AM CDT us Claudio Art MD LAB - HEMATOLOGY ORDERABLE S Final Result [facility] [address] [place] [address] * (ABNORMAL) COMPREHENSIVE METABOLIC PANEL (01/22/2022 4:20 AM CDT) Glucose 124(H) 70 - 105 mg/dL 01/22/2022 10:58 AM [facility] Sodium 136 136 - 145 mmol/L 01/22/2022 10:58 AM [facility] Potassium 4.4 3.5 - 5.1 mmol/L 01/22/2022 10:58 AM [facility] Chloride 98 98 - 107 mmol/L 01/22/2022 10:58 AM [facility] CO2 28 23 - 31 mmol/L 01/22/2022 10:58 AM [facility] Calcium 9.1 8.4 - 10.4 mg/dL 01/22/2022 10:58 AM [facility] Anion Gap 10 8 - 18 mmol/L 01/22/2022 10:58 AM [facility] BUN 20 8.4 - 25.7 mg/dL 01/22/2022 10:58 AM [facility] Creatinine 0.69(L) 0.72 - 1.25 mg/dL 01/22/2022 10:58 AM [facility] Alkaline Phosphatase 64 40 - 150 U/L 01/22/2022 10:58 AM [facility] ALT 37 0 - 61 U/L 01/22/2022 10:58 AM [facility] AST 24 5 - 34 U/L 01/22/2022 10:58 AM [facility] Protein Total 6.9 6.4 - 8.3 gm/dL 01/22/2022 10:58 AM CDT [facility] Albumin 3.6 3.2 - 4.6 gm/dL 01/22/2022 10:58 AM CDT [facility] Bilirubin Total 0.5 0.2 - 1.2 mg/dL 01/22/2022 10:58 AM CDT [facility] eGFR by CKD-EPI >90 >=90 mL/min/1.7 3 m2 01/22/2022 10:58 AM CDT [facility] Blood BLOOD SPECIMEN / Unknown Venipuncture / Unknown 01/22/2022 4:20 AM CDT 01/22/2022 9:57 AM CDT Narrative [facility] - 01/22/2022 10:58 AM CDT eGFR result was calculated using the updated CKD-EPI Creatinine Equations (2020). Prior to go live 2021 the eGFR was calculated using the MDRD calculation. Please note Reference Range change. us Claudio Art MD LAB - CHEMISTRY ORDERABLES Final Result [facility] [address] [place] [id number] documented in this encounter Visit Diagnoses Not on filedocumented in this encounter Care Teams Flat Knitter Relationship Specialty Start Date End Date Sami Santos MD [address] [place] [id number] PCP - General Internal Medicine 12/26/23 documented as of this encounter
--- OUTSIDE RECORDS SUMMARY | 2025-07-20 10:01 | XMS_ITS | Encounter Summary ---
Author Organization [facility] Health Address [address] [facility] [address] Care Team Providers Care Microfilm Clerk Name Role Phone Sami Santos MD Primary Care Provider [phone] Encounter Details Date Type Department Care Team (Late st Contact Info) Description 01/19/2022 Lab Requisition [facility] [address] [place] [address] Claudio Art MD [address] [place] [address] [address], [place] [phone] Social History Tobacco Use Types Packs/Day Years [...] of Assessment Author No 12/20/2021 3:02 AM EDWARDT Ramana Brady RN * Is person blind [...] Diagnosis Comments CBC W AUTO DIFFERENTIAL STAT 01/19/2022 3:10 AM CDT COMPREHENSIVE METABOLIC PANEL STAT 01/19/2022 3:10 AM CDT documented in this encounter Results * (ABNORMAL) CBC WITH DIFFERENTIAL (01/19/2022 3:10 AM CDT) [facility] WBC 11.1(H) 4.4 - 10.7 x10E9/L 01/19/2022 10:23 AM CDT [facility] WBC Corrected 01/19/2022 10:23 AM CDT [facility] RBC 4.69 3.80 - 5.40 x10E12/L 01/19/2022 10:23 AM CDT [facility] Hemoglobin 12.9 12.0 - 17.6 gm/dL 01/19/2022 10:23 AM CDT [facility] Hematocrit 41.7 35.2 - 51.7 % 01/19/2022 10:23 AM CDT [facility] MCV 88.9 80.7 - 98.3 fl 01/19/2022 10:[facility] MCH 27.5 26.7 - 34.0 pg 01/19/2022 10:[facility] MCHC 30.9 30.8 - 35.9 gm/dL 01/19/2022 10:23 AM [facility] Platelet Count 259 153 - 416 x10E9/L 01/19/2022 10:23 AM [facility] RDW-CV 16.1(H) 12.1 - 14.9 % 01/19/2022 10:23 AM [facility] MPV 11.7 9.4 - 12.9 fl 01/19/2022 10:23 AM [facility] Neutrophils % 67.6 44.0 - 73.0 % 01/19/2022 10:23 AM [facility] Lymphocytes % 19.2(L) 20.0 - 43.0 % 01/19/2022 10:23 AM [facility] Monocytes % 8.8 5.0 - 13.0 % 01/19/2022 10:23 AM [facility] Eosinophils % 2.5 0.0 - 6.0 % 01/19/2022 10:23 AM [facility] Basophils % 0.7 0.0 - 2.0 % 01/19/2022 10:23 AM [facility] Immature Granulocytes 1.2(H) 0 - 1 % 01/19/2022 10:23 AM [facility] Neutrophil Absolute 7.49(H) 2.01 - 7.14 x10E9/L 01/19/2022 10:23 AM [facility] Lymphocytes Absolute 2.13 1.07 - 3.94 x10E9/L 01/19/2022 10:23 AM [facility] Monocytes Absolute 0.98 0.26 - 1.07 x10E9/L 01/19/2022 10:23 AM [facility] Eosinophils Absolute 0.28 0 - 0.47 x10E9/L 01/19/2022 10:23 AM [facility] Basophils Absolute 0.08 0 - 0.08 x10E9/L 01/19/2022 10:23 AM [facility] Immature Granulocytes Absolute 0.13(H) 0.00 - 0.06 x10E9/L 01/19/2022 10:23 AM CDT [facility] nRBC Auto 0 /100 WBC 01/19/2022 10:23 AM [facility] Blood BLOOD SPECIMEN / Unknown Venipuncture / Unknown 01/19/2022 3:10 AM CDT 01/19/2022 9:14 AM CDT us Claudio Art MD LAB - HEMATOLOGY ORDERABLE S Final Result [facility] [address] [place] [address] * (ABNORMAL) COMPREHENSIVE METABOLIC PANEL (01/19/2022 3:10 AM CDT) Glucose 109(H) 70 - 105 mg/dL 01/19/2022 10:43 AM [facility] Sodium 137 136 - 145 mmol/L 01/19/2022 10:43 AM [facility] Potassium 5.5(H) 3.5 - 5.1 mmol/L 01/19/2022 10:43 AM [facility] Chloride 99 98 - 107 mmol/L 01/19/2022 10:43 AM [facility] CO2 27 23 - 31 mmol/L 01/19/2022 10:43 AM [facility] Calcium 9.1 8.4 - 10.4 mg/dL 01/19/2022 10:43 AM [facility] Anion Gap 11 8 - 18 mmol/L 01/19/2022 10:43 AM [facility] BUN 18 8.4 - 25.7 mg/dL 01/19/2022 10:43 AM [facility] Creatinine 0.76 0.72 - 1.25 mg/dL 01/19/2022 10:43 AM [facility] Alkaline Phosphatase 61 40 - 150 U/L 01/19/2022 10:43 AM [facility] ALT 46 0 - 61 U/L 01/19/2022 10:43 AM [facility] AST 47(H) 5 - 34 U/L 01/19/2022 10:43 AM [facility] Protein Total 7.3 6.4 - 8.3 gm/dL 01/19/2022 10:43 AM CDT [facility] Albumin 3.4 3.2 - 4.6 gm/dL 01/19/2022 10:43 AM CDT [facility] Bilirubin Total 0.6 0.2 - 1.2 mg/dL 01/19/2022 10:43 AM CDT [facility] eGFR by CKD-EPI >90 >=90 mL/min/1.7 3 m2 01/19/2022 10:43 AM CDT [facility] Blood BLOOD SPECIMEN / Unknown Venipuncture / Unknown 01/19/2022 3:10 AM CDT 01/19/2022 9:14 AM CDT Narrative [facility] - 01/19/2022 10:43 AM CDT eGFR result was calculated using the updated CKD-EPI Creatinine Equations (2020). Prior to go live 2021 the eGFR was calculated using the MDRD calculation. Please note Reference Range change. us Claudio Art MD LAB - CHEMISTRY ORDERABLES Final Result [facility] [address] [place] [id number] documented in this encounter Visit Diagnoses Not on filedocumented in this encounter Care Teams Microfilm Clerk Relationship Specialty Start Date End Date Sami Santos MD [address] [place] [id number] PCP - General Internal Medicine 12/26/23 documented as of this encounter
--- OUTSIDE RECORDS SUMMARY | 2025-07-20 10:01 | XMS_ITS | Encounter Summary ---
Author Organization [facility] Health Address [address] [facility] [place] [address] Care Team Providers Care Sole Stitcher Hand Name Role Phone Sami Santos MD Primary Care Provider [phone] Encounter Details Date Type Department Care Team (Late st Contact Info) Description 01/26/2022 Lab Requisition [facility] [address] [place] [address] Claudio Art MD [address] [place] [address] [address], [place] [id number] Social History Tobacco Use Types Packs/Day Years [...] Diagnosis Comments CBC W AUTO DIFFERENTIAL STAT 01/26/2022 4:52 AM CDT COMPREHENSIVE METABOLIC PANEL STAT 01/26/2022 4:52 AM CDT documented in this encounter Results * (ABNORMAL) CBC WITH DIFFERENTIAL (01/26/2022 4:52 AM CDT) [facility] WBC 12.8(H) 4.4 - 10.7 x10E9/L 01/26/2022 8:49 AM CDT [facility] WBC Corrected 01/26/2022 8:49 AM CDT [facility] RBC 4.71 3.80 - 5.40 x10E12/L 01/26/2022 8:49 AM CDT [facility] Hemoglobin 12.9 12.0 - 17.6 gm/dL 01/26/2022 8:49 AM CDT [facility] Hematocrit 41.0 35.2 - 51.7 % 01/26/2022 8:49 AM CDT [facility] MCV 87.0 80.7 - 98.3 fl 01/26/2022 8:49 AM CDT [facility] MCH 27.4 26.7 - 34.0 pg 01/26/2022 8:49 AM CDT [facility] MCHC 31.5 30.8 - 35.9 gm/dL 01/26/2022 8:49 AM CDT [facility] Platelet Count 269 153 - 416 x10E9/L 01/26/2022 8:49 AM CDT [facility] RDW-CV 15.7(H) 12.1 - 14.9 % 01/26/2022 8:49 AM CDT [facility] MPV 11.4 9.4 - 12.9 fl 01/26/2022 8:49 AM CDT [facility] Neutrophils % 71.6 44.0 - 73.0 % 01/26/2022 8:49 AM T [facility] Lymphocytes % 17.1(L) 20.0 - 43.0 % 01/26/2022 8:49 AM T [facility] Monocytes % 7.2 5.0 - 13.0 % 01/26/2022 8:49 AM CDT [facility] Eosinophils % 1.9 0.0 - 6.0 % 01/26/2022 8:49 AM CDT [facility] Basophils % 0.7 0.0 - 2.0 % 01/26/2022 8:49 AM CDT [facility] Immature Granulocytes 1.5(H) 0 - 1 % 01/26/2022 8:49 AM T [facility] Neutrophil Absolute 9.20(H) 2.01 - 7.14 x10E9/L 01/26/2022 8:49 AM CDT [facility] Lymphocytes Absolute 2.19 1.07 - 3.94 x10E9/L 01/26/2022 8:49 AM CDT [facility] Monocytes Absolute 0.93 0.26 - 1.07 x10E9/L 01/26/2022 8:49 AM CDT [facility] Eosinophils Absolute 0.24 0 - 0.47 x10E9/L 01/26/2022 8:49 AM CDT [facility] Basophils Absolute 0.09(H) 0 - 0.08 x10E9/L 01/26/2022 8:49 AM CDT [facility] Immature Granulocytes Absolute 0.19(H) 0.00 - 0.06 x10E9/L 01/26/2022 8:49 AM [facility] nRBC Auto 0 /100 WBC 01/26/2022 8:49 AM [facility] Blood BLOOD SPECIMEN / Unknown Venipuncture / Unknown 01/26/2022 4:52 AM CDT 01/26/2022 8:39 AM CDT us Claudio Art MD LAB - HEMATOLOGY ORDERABLE S Final Result [facility] [address] [place] [address] * (ABNORMAL) COMPREHENSIVE METABOLIC PANEL (01/26/2022 4:52 AM T) Glucose 123(H) 70 - 105 mg/dL 01/26/2022 9:05 AM [facility] Sodium 138 136 - 145 mmol/L 01/26/2022 9:05 AM [facility] Potassium 4.6 3.5 - 5.1 mmol/L 01/26/2022 9:05 AM [facility] Chloride 99 98 - 107 mmol/L 01/26/2022 9:05 AM [facility] CO2 29 23 - 31 mmol/L 01/26/2022 9:05 AM [facility] Calcium 9.5 8.4 - 10.4 mg/dL 01/26/2022 9:05 AM [facility] Anion Gap 10 8 - 18 mmol/L 01/26/2022 9:05 AM [facility] BUN 22 8.4 - 25.7 mg/dL 01/26/2022 9:05 AM [facility] Creatinine 0.71(L) 0.72 - 1.25 mg/dL 01/26/2022 9:05 AM [facility] Alkaline Phosphatase 67 40 - 150 U/L 01/26/2022 9:05 AM [facility] ALT 37 0 - 61 U/L 01/26/2022 9:05 AM [facility] AST 22 5 - 34 U/L 01/26/2022 9:05 AM [facility] Protein Total 6.9 6.4 - 8.3 gm/dL 01/26/2022 9:05 AM CDT [facility] Albumin 3.7 3.2 - 4.6 gm/dL 01/26/2022 9:05 AM CDT [facility] Bilirubin Total 0.5 0.2 - 1.2 mg/dL 01/26/2022 9:05 AM CDT [facility] eGFR by CKD-EPI >90 >=90 mL/min/1.7 3 m2 01/26/2022 9:05 AM CDT [facility] Blood BLOOD SPECIMEN / Unknown Venipuncture / Unknown 01/26/2022 4:52 AM CDT 01/26/2022 8:39 AM CDT Narrative [facility] - 01/26/2022 9:05 AM CDT eGFR result was calculated using the updated CKD-EPI Creatinine Equations (2020). Prior to go live 2021 the eGFR was calculated using the MDRD calculation. Please note Reference Range change. us Claudio Art MD LAB - CHEMISTRY ORDERABLES Final Result [facility] [address] [place] [id number] documented in this encounter Visit Diagnoses Not on filedocumented in this encounter Care Teams Sole Stitcher Hand Relationship Specialty Start Date End Date Sami Santos MD [address] [place] [id number] PCP - General Internal Medicine 12/26/23 documented as of this encounter
--- OUTSIDE RECORDS SUMMARY | 2025-07-20 10:01 | XMS_ITS | Encounter Summary ---
Author Organization [facility] Health Address [address] [facility] [place] [address] Care Team Providers Care Sterile Preparation Technician Name Role Phone Sami Santos MD Primary Care Provider [phone] Encounter Details Date Type Department Care Team (Late st Contact Info) Description 01/29/2022 Lab Requisition [facility] [address] [place] [address] Claudio Art MD [address] [place] [address] [address], [place] [id number] Social History Tobacco Use Types Packs/Day Years [...] Assessment Author No 12/20/2021 3:02 AM Ramana Druant RN * Does person have difficulty dressing/bathing? [...] Diagnosis Comments CBC W AUTO DIFFERENTIAL STAT 01/29/2022 5:31 AM CDT COMPREHENSIVE METABOLIC PANEL STAT 01/29/2022 5:31 AM CDT documented in this encounter Results * (ABNORMAL) COMPREHENSIVE METABOLIC PANEL (01/29/2022 5:31 AM CDT) Glucose 109(H) 70 - 105 mg/dL 01/29/2022 10:32 AM CDT [facility] Sodium 139 136 - 145 mmol/L 01/29/2022 10:32 AM CDT [facility] Potassium 4.8 3.5 - 5.1 mmol/L 01/29/2022 10:32 AM CDT [facility] Chloride 98 98 - 107 mmol/L 01/29/2022 10:32 AM CDT [facility] CO2 28 23 - 31 mmol/L 01/29/2022 10:32 AM CDT [facility] Calcium 9.7 8.4 - 10.4 mg/dL 01/29/2022 10:32 AM CDT [facility] Anion Gap 13 8 - 18 mmol/L 01/29/2022 10:32 AM CDT [facility] BUN 18 8.4 - 25.7 mg/dL 01/29/2022 10:32 AM CDT [facility] Creatinine 0.71(L) 0.72 - 1.25 mg/dL 01/29/2022 10:32 AM CDT [facility] Alkaline Phosphatase 76 40 - 150 U/L 01/29/2022 10:32 AM CDT [facility] ALT 40 0 - 61 U/L 01/29/2022 10:32 AM CDT [facility] AST 26 5 - 34 U/L 01/29/2022 10:32 AM CDT [facility] Protein Total 7.8 6.4 - 8.3 gm/dL 01/29/2022 10:32 AM CDT [facility] Albumin 4.1 3.2 - 4.6 gm/dL 01/29/2022 10:32 AM T [facility] Bilirubin Total 0.5 0.2 - 1.2 mg/dL 01/29/2022 10:32 AM [facility] eGFR by CKD-EPI >90 >=90 mL/min/1.7 3 m2 01/29/2022 10:32 AM [facility] Blood BLOOD SPECIMEN / Unknown Venipuncture / Unknown 01/29/2022 5:31 AM CDT 01/29/2022 9:43 AM CDT us Claudio Art MD LAB - CHEMISTRY ORDERABLES Final Result Performing Organization Address City/State/[facility] Co de Phone Number [facility] [address] [place], [place] [id number] * (ABNORMAL) CBC WITH DIFFERENTIAL (01/29/2022 5:31 AM CDT) WBC 11.8(H) 4.4 - 10.7 x10E9/L 01/29/2022 10:02 AM CDT [facility] WBC Corrected 01/29/2022 10:02 AM CDT [facility] RBC 5.22 3.80 - 5.40 x10E12/L 01/29/2022 10:02 AM CDT [facility] Hemoglobin 14.5 12.0 - 17.6 gm/dL 01/29/2022 10:02 AM [facility] Hematocrit 46.1 35.2 - 51.7 % 01/29/2022 10:02 AM [facility] MCV 88.3 80.7 - 98.3 fl 01/29/2022 10:02 AM [facility] MCH 27.8 26.7 - 34.0 pg 01/29/2022 10:02 AM [facility] MCHC 31.5 30.8 - 35.9 gm/dL 01/29/2022 10:02 AM [facility] Platelet Count 276 153 - 416 x10E9/L 01/29/2022 10:02 AM [facility] RDW-CV 15.7(H) 12.1 - 14.9 % 01/29/2022 10:02 AM [facility] MPV 11.8 9.4 - 12.9 fl 01/29/2022 10:02 AM [facility] Neutrophils % 69.4 44.0 - 73.0 % 01/29/2022 10:02 AM [facility] Lymphocytes % 19.6(L) 20.0 - 43.0 % 01/29/2022 10:02 AM [facility] Monocytes % 6.5 5.0 - 13.0 % 01/29/2022 10:02 AM [facility] Eosinophils % 2.3 0.0 - 6.0 % 01/29/2022 10:02 AM [facility] Basophils % 0.7 0.0 - 2.0 % 01/29/2022 10:02 AM [facility] Immature Granulocytes 1.5(H) 0 - 1 % 01/29/2022 10:02 AM [facility] Neutrophil Absolute 8.15(H) 2.01 - 7.14 x10E9/L 01/29/2022 10:02 AM [facility] Lymphocytes Absolute 2.31 1.07 - 3.94 x10E9/L 01/29/2022 10:02 AM [facility] Monocytes Absolute 0.77 0.26 - 1.07 x10E9/L 01/29/2022 10:02 AM [facility] Eosinophils Absolute 0.27 0 - 0.47 x10E9/L 01/29/2022 10:02 AM CDT [facility] Basophils Absolute 0.08 0 - 0.08 x10E9/L 01/29/2022 10:02 AM CDT [facility] Immature Granulocytes Absolute 0.18(H) 0.00 - 0.06 x10E9/L 01/29/2022 10:02 AM CDT [facility] nRBC Auto 0 /100 WBC 01/29/2022 10:02 AM CDT [facility] Blood BLOOD SPECIMEN / Unknown Venipuncture / Unknown 01/29/2022 5:31 AM CDT 01/29/2022 9:43 AM CDT us Claudio Art MD LAB - HEMATOLOGY ORDERABLE S Final Result [facility] [address] [place], [place] [phone] documented in this encounter Visit Diagnoses Not on filedocumented in this encounter Care Teams Sterile Preparation Technician Relationship Specialty Start Date End Date Sami Santos MD [address] [place] [id number] PCP - General Internal Medicine 12/26/23 documented as of this encounter
--- OUTSIDE RECORDS SUMMARY | 2025-07-20 10:02 | XMS_ITS | Encounter Summary ---
Author Organization [facility] Health Address [address] [facility] [place] [address] Care Team Providers Care Investigations Chief Name Role Phone Sami Santos MD Primary Care Provider [phone] Encounter Details Date Type Department Care Team (Late st Contact Info) Description 01/12/2022 Lab Requisition [facility] [address] [place] [address] Claudio Art MD [address] [place] [address] [address], [place] [id number] Social History Tobacco Use Types Packs/Day Years [...] Diagnosis Comments CBC W AUTO DIFFERENTIAL STAT 01/12/2022 4:19 AM CDT COMPREHENSIVE METABOLIC PANEL STAT 01/12/2022 4:19 AM CDT documented in this encounter Results * (ABNORMAL) CBC WITH DIFFERENTIAL (01/12/2022 4:19 AM CDT) [facility] WBC 9.5 4.4 - 10.7 x10E9/L 01/12/2022 10:41 AM CDT [facility] WBC Corrected 01/12/2022 10:41 AM CDT [facility] RBC 4.48 3.80 - 5.40 x10E12/L 01/12/2022 10:41 AM CDT [facility] Hemoglobin 12.3 12.0 - 17.6 gm/dL 01/12/2022 10:41 AM CDT [facility] Hematocrit 39.4 35.2 - 51.7 % 01/12/2022 10:41 AM CDT [facility] MCV 87.9 80.7 - 98.3 fl 01/12/2022 10:41 AM CDT [facility] MCH 27.5 26.7 - 34.0 pg 01/12/2022 10:41 AM CDT [facility] MCHC 31.2 30.8 - 35.9 gm/dL 01/12/2022 10:41 AM CDT [facility] Platelet Count 270 153 - 416 x10E9/L 01/12/2022 10:41 AM CDT [facility] RDW-CV 15.8(H) 12.1 - 14.9 % 01/12/2022 10:41 AM CDT [facility] MPV 11.7 9.4 - 12.9 fl 01/12/2022 10:41 AM CDT [facility] Neutrophils % 57.5 44.0 - 73.0 % 01/12/2022 10:41 AM CDT [facility] Lymphocytes % 26.8 20.0 - 43.0 % 01/12/2022 10:41 AM CDT [facility] Monocytes % 9.4 5.0 - 13.0 % 01/12/2022 10:41 AM CDT [facility] Eosinophils % 4.3 0.0 - 6.0 % 01/12/2022 10:41 AM CDT [facility] Basophils % 0.7 0.0 - 2.0 % 01/12/2022 10:41 AM CDT [facility] Immature Granulocytes 1.3(H) 0 - 1 % 01/12/2022 10:41 AM CDT [facility] Neutrophil Absolute 5.44 2.01 - 7.14 x10E9/L 01/12/2022 10:41 AM CDT [facility] Lymphocytes Absolute 2.54 1.07 - 3.94 x10E9/L 01/12/2022 10:41 AM CDT [facility] Monocytes Absolute 0.89 0.26 - 1.07 x10E9/L 01/12/2022 10:41 AM CDT [facility] Eosinophils Absolute 0.41 0 - 0.47 x10E9/L 01/12/2022 10:41 AM CDT [facility] Basophils Absolute 0.07 0 - 0.08 x10E9/L 01/12/2022 10:41 AM CDT [facility] Immature Granulocytes Absolute 0.12(H) 0.00 - 0.06 x10E9/L 01/12/2022 10:41 AM CDT [facility] nRBC Auto 0 /100 WBC 01/12/2022 10:41 AM CDT [facility] Blood BLOOD SPECIMEN / Unknown Venipuncture / Unknown 01/12/2022 4:19 AM CDT 01/12/2022 9:18 AM CDT us Claudio Art MD LAB - HEMATOLOGY ORDERABLE S Final Result [facility] [address] [place] [address] * (ABNORMAL) COMPREHENSIVE METABOLIC PANEL (01/12/2022 4:19 AM CDT) Glucose 109(H) 70 - 105 mg/dL 01/12/2022 10:12 AM [facility] Sodium 140 136 - 145 mmol/L 01/12/2022 10:12 AM [facility] Potassium 4.4 3.5 - 5.1 mmol/L 01/12/2022 10:12 AM [facility] Chloride 100 98 - 107 mmol/L 01/12/2022 10:12 AM [facility] CO2 30 23 - 31 mmol/L 01/12/2022 10:12 AM [facility] Calcium 9.2 8.4 - 10.4 mg/dL 01/12/2022 10:12 AM [facility] Anion Gap 10 8 - 18 mmol/L 01/12/2022 10:12 AM [facility] BUN 19 8.4 - 25.7 mg/dL 01/12/2022 10:12 AM [facility] Creatinine 0.76 0.72 - 1.25 mg/dL 01/12/2022 10:12 AM [facility] Alkaline Phosphatase 63 40 - 150 U/L 01/12/2022 10:12 AM CDT [facility] ALT 32 0 - 61 U/L 01/12/2022 10:12 AM [facility] AST 20 5 - 34 U/L 01/12/2022 10:12 AM [facility] Protein Total 6.7 6.4 - 8.3 gm/dL 01/12/2022 10:12 AM CDT [facility] Albumin 3.5 3.2 - 4.6 gm/dL 01/12/2022 10:12 AM CDT [facility] Bilirubin Total 0.5 0.2 - 1.2 mg/dL 01/12/2022 10:12 AM CDT [facility] eGFR by CKD-EPI >90 >=90 mL/min/1.7 3 m2 01/12/2022 10:12 AM CDT [facility] Blood BLOOD SPECIMEN / Unknown Venipuncture / Unknown 01/12/2022 4:19 AM CDT 01/12/2022 9:18 AM CDT Narrative [facility] - 01/12/2022 10:12 AM CDT eGFR result was calculated using the updated CKD-EPI Creatinine Equations (2020). Prior to go live 2021 the eGFR was calculated using the MDRD calculation. Please note Reference Range change. us Claudio Art MD LAB - CHEMISTRY ORDERABLES Final Result Performing Organization Address City/State/[facility] Co de Phone Number [facility] [address] [place] [address] documented in this encounter Visit Diagnoses Not on filedocumented in this encounter Care Teams Investigations Chief Relationship Specialty Start Date End Date Sami Santos MD [address] [place] [phone] PCP - General Internal Medicine 12/26/23 documented as of this encounter
--- OUTSIDE RECORDS SUMMARY | 2025-07-20 10:02 | XMS_ITS | Encounter Summary ---
Author Organization [facility] Health Address [address] [facility] [place] [address] Care Team Providers Care Barbecue Cook Name Role Phone Sami Santos MD Primary Care Provider [phone] Encounter Details Date Type Department Care Team (Late st Contact Info) Description 01/15/2022 Lab Requisition [facility] [address] [place] [address] Claudio Art MD [address] [place] [address] [address], [place] [id number] Social History Tobacco Use Types Packs/Day Years [...] Associated Diagnosis Comments COMPREHENSIVE METABOLIC PANEL STAT 01/15/2022 3:30 AM CDT documented in this encounter Results * COMPREHENSIVE METABOLIC PANEL (01/15/2022 3:30 AM CDT) [facility] Glucose 88 70 - 105 mg/dL 01/15/2022 10:36 AM CDT [facility] Sodium 139 136 - 145 mmol/L 01/15/2022 10:36 AM CDT [facility] Potassium 4.8 3.5 - 5.1 mmol/L 01/15/2022 10:36 AM CDT [facility] Chloride 100 98 - 107 mmol/L 01/15/2022 10:36 AM CDT [facility] CO2 25 23 - 31 mmol/L 01/15/2022 10:36 AM CDT [facility] Calcium 9.2 8.4 - 10.4 mg/dL 01/15/2022 10:36 AM CDT [facility] Anion Gap 14 8 - 18 mmol/L 01/15/2022 10:36 AM CDT [facility] BUN 18 8.4 - 25.7 mg/dL 01/15/2022 10:36 AM CDT [facility] Creatinine 0.75 0.72 - 1.25 mg/dL 01/15/2022 10:36 AM CDT [facility] Alkaline Phosphatase 61 40 - 150 U/L 01/15/2022 10:36 AM CDT [facility] ALT 41 0 - 61 U/L 01/15/2022 10:36 AM CDT [facility] AST 33 5 - 34 U/L 01/15/2022 10:36 AM CDT [facility] Protein Total 6.7 6.4 - 8.3 gm/dL 01/15/2022 10:36 AM CDT [facility] Albumin 3.5 3.2 - 4.6 gm/dL 01/15/2022 10:36 AM CDT [facility] Bilirubin Total 0.5 0.2 - 1.2 mg/dL 01/15/2022 10:36 AM CDT [facility] eGFR by CKD-EPI >90 >=90 mL/min/1.7 3 m2 01/15/2022 10:36 AM CDT [facility] Blood BLOOD SPECIMEN / Unknown Venipuncture / Unknown 01/15/2022 3:30 AM CDT 01/15/2022 9:25 AM CDT Narrative [facility] - 01/15/2022 10:36 AM CDT eGFR result was calculated using the updated CKD-EPI Creatinine Equations (2020). Prior to go live 2021 the eGFR was calculated using the MDRD calculation. Please note Reference Range change. us Claudio Art MD LAB - CHEMISTRY ORDERABLES Final Result [facility] [address] [place] [address] documented in this encounter Visit Diagnoses Not on filedocumented in this encounter Care Teams Barbecue Cook Relationship Specialty Start Date End Date Sami Santos MD [address] [place] [phone] PCP - General Internal Medicine 12/26/23 documented as of this encounter
--- OUTSIDE RECORDS SUMMARY | 2025-07-20 10:02 | XMS_ITS | Encounter Summary ---
Author Organization [facility] Health Address [address] [facility] [place] [address] Care Team Providers Care Lead Tinner Name Role Phone Sami Santos MD Primary Care Provider [phone] Encounter Details Date Type Department Care Team (Late st Contact Info) Description 01/08/2022 Lab Requisition [facility] [address] [place] [address] Claudio Art MD [address] [place] [address] [address], [place] [phone] Social History Tobacco Use Types Packs/Day Years [...] 3:02 AM CDT Ramana Brady RN * Does person have serious difficulty walking/climbing stairs? Answer Date of Assessment Author No 12/20/2021 3:02 AM EDWARDT Ramana Brady RN * Does person have difficulty dressing/bathing? Answer Date of Assessment Author No 12/20/2021 3:02 AM CDT Ramana Brady RN * Does person have difficulty doing errands alone? Answer Date of Assessment Author No 12/20/2021 3:02 AM EDWARDT Ramana Brady RN documented as of this encounter Mental Status * Does person have difficulty concentrating/remembering/making decisions? Answer Entry Date Author No 12/20/2021 3:02 AM Ramana Durant RN documented in this encounter Plan of Treatment Not on file documented as of this encounter Procedures Procedure Name Priority Date/Time Associated Diagnosis Comments PTT STAT 01/08/2022 3:30 AM CDT PT-INR STAT 01/08/2022 3:30 AM CDT CBC W AUTO DIFFERENTIAL STAT 01/08/2022 3:30 AM CDT COMPREHENSIVE METABOLIC PANEL STAT 01/08/2022 3:30 AM CDT documented in this encounter Results * (ABNORMAL) CBC WITH DIFFERENTIAL (01/08/2022 3:30 AM CDT) [facility] WBC 10.1 4.4 - 10.7 x10E9/L 01/08/2022 10:04 AM CDT [facility] WBC Corrected 01/08/2022 10:04 AM CDT [facility] RBC 4.49 3.80 - 5.40 x10E12/L 01/08/2022 10:04 AM CDT [facility] Hemoglobin 12.1 12.0 - 17.6 gm/dL 01/08/2022 10:04 AM CDT [facility] Hematocrit 39.2 35.2 - 51.7 % 01/08/2022 10:04 AM [facility] MCV 87.3 80.7 - 98.3 fl 01/08/2022 10:04 AM [facility] MCH 26.9 26.7 - 34.0 pg 01/08/2022 10:04 AM [facility] MCHC 30.9 30.8 - 35.9 gm/dL 01/08/2022 10:04 AM [facility] Platelet Count 344 153 - 416 x10E9/L 01/08/2022 10:04 AM [facility] RDW-CV 15.4(H) 12.1 - 14.9 % 01/08/2022 10:04 AM [facility] MPV 11.3 9.4 - 12.9 fl 01/08/2022 10:04 AM [facility] Neutrophils % 66.3 44.0 - 73.0 % 01/08/2022 10:04 AM [facility] Lymphocytes % 19.9(L) 20.0 - 43.0 % 01/08/2022 10:04 AM [facility] Monocytes % 8.6 5.0 - 13.0 % 01/08/2022 10:04 AM [facility] Eosinophils % 3.0 0.0 - 6.0 % 01/08/2022 10:04 AM [facility] Basophils % 1.0 0.0 - 2.0 % 01/08/2022 10:04 AM [facility] Immature Granulocytes 1.2(H) 0 - 1 % 01/08/2022 10:04 AM [facility] Neutrophil Absolute 6.68 2.01 - 7.14 x10E9/L 01/08/2022 10:04 AM [facility] Lymphocytes Absolute 2.01 1.07 - 3.94 x10E9/L 01/08/2022 10:04 AM [facility] Monocytes Absolute 0.87 0.26 - 1.07 x10E9/L 01/08/2022 10:04 AM [facility] Eosinophils Absolute 0.30 0 - 0.47 x10E9/L 01/08/2022 10:04 AM CDT [facility] Basophils Absolute 0.10(H) 0 - 0.08 x10E9/L 01/08/2022 10:04 AM CDT [facility] Immature Granulocytes Absolute 0.12(H) 0.00 - 0.06 x10E9/L 01/08/2022 10:04 AM CDT [facility] nRBC Auto 0 /100 WBC 01/08/2022 10:04 AM CDT [facility] Blood BLOOD SPECIMEN / Unknown Venipuncture / Unknown 01/08/2022 3:30 AM CDT 01/08/2022 9:53 AM CDT Claudio Art MD LAB - HEMATOLOGY ORDERABLE S Final Result Performing Organization Address [facility] Co de Phone Number [facility] [address] [place] [phone] * PTT (01/08/2022 3:30 AM CDT) PTT 27.9 23.0 - 38.4 sec 01/08/2022 10:12 AM CDT [facility] Blood BLOOD SPECIMEN / Unknown Venipuncture / Unknown 01/08/2022 3:30 AM CDT 01/08/2022 9:53 AM CDT Narrative [facility] - 01/08/2022 10:12 AM CDT Heparin Therapeutic Range for PTT: 69.0 - 110.0 seconds. Claudio Art MD LAB - COAGULATION ORDERABL ES Final Result Performing Organization Address [facility] Co de Phone Number [facility] [address] [place] [phone] * PT-INR (01/08/2022 3:30 AM CDT) PT 14.3 12.1 - 14.8 sec 01/08/2022 10:11 AM CDT [facility] INR 1.1 0.9 - 1.1 01/08/2022 10:11 AM CDT [facility] Blood BLOOD SPECIMEN / Unknown Venipuncture / Unknown 01/08/2022 3:30 AM CDT 01/08/2022 9:53 AM CDT Narrative [facility] - 01/08/2022 10:11 AM CDT Conventional Warfarin Anticoagulant Therapy: INR Reference Range: 2.0-3.0 Intensive Warfarin Anticoagulant Therapy: INR Reference Range: 2.5-3.5 us Claudio Art MD LAB - COAGULATION ORDERABL ES Final Result Performing Organization Address City/State/[facility] Co de Phone Number [facility] [address] [place] [address] * COMPREHENSIVE METABOLIC PANEL (01/08/2022 3:30 AM CDT) Glucose 93 70 - 105 mg/dL 01/08/2022 10:22 AM CDT [facility] Sodium 141 136 - 145 mmol/L 01/08/2022 10:22 AM CDT [facility] Potassium 4.5 3.5 - 5.1 mmol/L 01/08/2022 10:22 AM CDT [facility] Chloride 102 98 - 107 mmol/L 01/08/2022 10:22 AM CDT [facility] CO2 24 23 - 31 mmol/L 01/08/2022 10:22 AM CDT [facility] Calcium 9.5 8.4 - 10.4 mg/dL 01/08/2022 10:22 AM CDT [facility] Anion Gap 15 8 - 18 mmol/L 01/08/2022 10:22 AM CDT [facility] BUN 18 8.4 - 25.7 mg/dL 01/08/2022 10:22 AM CDT [facility] Creatinine 0.78 0.72 - 1.25 mg/dL 01/08/2022 10:22 AM CDT [facility] Alkaline Phosphatase 64 40 - 150 U/L 01/08/2022 10:22 AM CDT [facility] ALT 39 0 - 61 U/L 01/08/2022 10:22 AM CDT [facility] AST 23 5 - 34 U/L 01/08/2022 10:22 AM CDT [facility] Protein Total 6.9 6.4 - 8.3 gm/dL 01/08/2022 10:22 AM CDT [facility] Albumin 3.6 3.2 - 4.6 gm/dL 01/08/2022 10:22 AM CDT [facility] Bilirubin Total 0.8 0.2 - 1.2 mg/dL 01/08/2022 10:22 AM CDT [facility] eGFR by CKD-EPI >90 >=90 mL/min/1.7 3 m2 01/08/2022 10:22 AM CDT [facility] Blood BLOOD SPECIMEN / Unknown Venipuncture / Unknown 01/08/2022 3:30 AM CDT 01/08/2022 9:53 AM CDT Narrative [facility] - 01/08/2022 10:22 AM CDT eGFR result was calculated using the updated CKD-EPI Creatinine Equations (2020). Prior to go live 2021 the eGFR was calculated using the MDRD calculation. Please note Reference Range change. us Claudio Art MD LAB - CHEMISTRY ORDERABLES Final Result Performing Organization Address City/State/[facility] Co de Phone Number [facility] [address] [place] [address] documented in this encounter Visit Diagnoses Not on filedocumented in this encounter Care Teams Lead Tinner Relationship Specialty Start Date End Date Sami Santos MD [address] [place] [id number] PCP - General Internal Medicine 12/26/23 documented as of this encounter
[2025-07-20 10:14] LABS: Influenza A QL RT-PCR Negative (Negative); Influenza B QL RT-PCR Negative (Negative); RSV RNA, RT-PCR Negative (Negative); SARS-CoV-2 RNA PCR Negative (Negative)
== END 2025-07-20 12:44 ==
PROVIDERS: Emergency Provider Student in an Organized Health Care Education/Training Program; PCP Internal Medicine
DX: K59.00 Constipation, unspecified (principal); Z20.822 Contact with and (suspected) exposure to COVID-19; I12.9 Hypertensive chronic kidney disease with stage 1 through stage 4 chronic kidney disease, or unspecified chronic kidney disease; N18.9 Chronic kidney disease, unspecified; E55.9 Vitamin D deficiency, unspecified; E78.2 Mixed hyperlipidemia; D50.9 Iron deficiency anemia, unspecified; Z93.1 Gastrostomy status; Z86.73 Personal history of transient ischemic attack (TIA), and cerebral infarction without residual deficits; Z85.46 Personal history of malignant neoplasm of prostate; Z79.02 Long term (current) use of antithrombotics/antiplatelets; Z79.82 Long term (current) use of aspirin; Z79.899 Other long term (current) drug therapy
CPT/HCPCS: 36415; 71045; 74177; 80053; 85025; 87637; 99284; Q9967